=== PATIENT | male | born 1945 | race Caucasian/White ===

== ENCOUNTER → 2024-02-22 | Outpatient (CLI) | payer MEDICARE, BC, SELFPAY ==
[2024-02-22 08:51] LABS: Basophils % (Auto) 0 % (0-2.5); Eosinophils # (Auto) 0.3 Thou/mm3 (0.0-0.5); Eosinophils % (Auto) 6 % (0-10); Hematocrit 39.7 % (41.0-53.0); Hemoglobin 13.1 g/dL (13.5-16.0); Immature Granulocytes % (Auto) 0 % (0-0); Immature Granulocytes Auto 0.02 Thou/mm3 (0.00-0.00); Lymphocytes # (Auto) 2.1 Thou/mm3 (1.0-4.8); Lymphocytes % (Auto) 39 % (10-50); Mean Corpuscular Volume 88 fL (80-100); Monocytes # (Auto) 0.5 Thou/mm3 (0.0-0.8); Monocytes % (Auto) 9 % (0-12); Neutrophils # (Auto) 2.4 Thou/mm3 (1.8-7.7); Neutrophils % (Auto) 45 % (37-80); Nucleated Red Blood Cell % 0 /100 WBC (0); Platelet Count 229 Thou/mm3 (140-440); RDW Standard Deviation 44.1 fL (35.1-43.9); Red Blood Count 4.52 Miln/mm3 (4.50-5.90); White Blood Count 5.4 Thou/mm3 (3.8-10.6)
[2024-02-22 09:27] LABS: Alanine Aminotransferase 43 U/L (10-49); Albumin, Serum 4.2 gm/dL (3.4-4.8); Albumin/Globulin Ratio 1.8 (1.2-2.2); Alkaline Phosphatase 107 U/L (46-116); Anion Gap 10 (7-16); Aspartate Amino Transferase 35 U/L (0-34); BUN/Creatinine Ratio 36 Ratio (12-20); Bilirubin,Total 0.2 mg/dL (0.3-1.2); Blood Urea Nitrogen 51 mg/dL (9-23); Calcium 9.6 mg/dL (8.3-10.6); Calcium (Corrected) 9.6 mg/dL (8.5-10.1); Carbon Dioxide 20.4 mMol/L (20.0-31.0); Chloride 113 mMol/L (98-107); Creatinine (Component) 1.4 mg/dL (0.6-1.3); Globulin 2.4 gm/dL (2.3-3.5); Glucose 159 mg/dL (74-106); Osmolality,Calculated 301 (275-295); Potassium 4.5 mMol/L (3.4-5.1); Sodium 143 mMol/L (136-145); Total Protein 6.6 gm/dL (5.7-8.2); eGFR 52 See Note
== END | disposition home or self-care (01) ==
LOC: COPL 08:09
PROVIDERS: PCP Family Medicine; Referring Provider Physician Assistant; Visit Provider Physician Assistant
DX: R19.7 Diarrhea, unspecified (principal)
CPT/HCPCS: 36415; 80053; 85025

== ENCOUNTER → 2024-02-23 | Outpatient (CLI) | payer MEDICARE, BC, SELFPAY | END | disposition home or self-care (01) | LOC: SLDO 10:49 | PROVIDERS: Referring Provider Physician Assistant; Visit Provider Physician Assistant | DX: R19.7 Diarrhea, unspecified (principal) | CPT/HCPCS: 87015; 87045; 87046; 87899 ==

== ENCOUNTER 2024-05-24 14:42 | Inpatient (IN) | payer MEDICARE, BC, SELFPAY ==
[2024-05-24 14:42] VITALS: BMI 18.4
[2024-05-24 15:42] VITALS: BP 175/96; PULSE 99; RESP 18; TEMP 37; O2SAT 94
--- NOTE | 2024-05-24 15:47 | XR_ITS ---
Examination: CT brain head without contrast. 2-D sagittal coronal reconstructions Date and time of exam:May 24, 2024 1616 hours Comparison October 17, 2022 INDICATIONS: Patient fell today with injury to the head, head pain CTDI: vol (mGy):49 DLP: (mGycm):1021 Technique: Multiple CT axial sections of the brain have been obtained, 5 mm slice thickness. Contrast has not been administered. 2-D sagittal, coronal reconstructions have been obtained Low dose protocols were performed. One or more of the following dose reduction techniques were used; automated exposure control, adjustment of the mA and/or KV according to patient size, use of iterative reconstruction technique. Findings: No significant ventricular enlargement. Intra-axial or extra-axial hemorrhage density is not seen. No mass effect or midline shift Basal cisterns are not remarkable. Fourth ventricle is midline. Cranial vault intact. Impression: Negative for acute hemorrhage, mass effect or midline shift
--- NOTE | 2024-05-24 15:47 | XR_ITS ---
Examination: Left femur 2 views TECHNIQUE: AP lateral left femur 2 views Exam date and time: May 24, 2024 at 1536 hours INDICATIONS: Patient fell today with injury of the femur, femur pain. FINDINGS: Acute fracture left femoral neck, 18 mm offset at the fracture site Shaft of the femur intact IMPRESSION: Acute fracture femoral neck
--- NOTE | 2024-05-24 15:47 | XR_ITS ---
Examination:Left hip AP, lateral, AP pelvis 3 views Technique: Hip AP lateral, AP pelvis, 3 views Exam date and time:May 24, 2024 at 1522 hours INDICATIONS: Patient fell today with injury to the hip, hip pain FINDINGS: Acute displaced fracture left femoral neck Right hip bones of the pelvis is intact IMPRESSION: Acute displaced fracture left femoral neck
--- NOTE | 2024-05-24 15:48 | PD.EDFALL ---
ED Fall Injury RME/HPI General Chief Complaint: Fall Stated Complaint: LEFT LEG PAIN Time Seen by Provider: 05/24/24 14:45 Arrival date/time: 05/24/24 14:42 RME / HPI RME / HPI Narrative: 79-year-old male patient with significant history of heart transplant, 14 years ago, came in for evaluation regarding left hip pain. Patient sustained a fall while working on his tractor, landing on the cement complaining of headache, and pain to the left hip, patient is unable to bear weight due to pain. Denies any other complaints no medications taken prior travel. Patient is taking blood thinner. Patient is taking 81 mg of aspirin daily and Plavix also. Patient is taking his immunosuppressive medications with good compliance. Related Data Home Medications ?Medication ?Instructions ?Recorded ?Confirmed ascorbic acid (vitamin C) 500 mg 500 mg PO BID 07/25/20 05/24/24 tablet (Vitamin C) aspirin 81 mg tablet,delayed 81 mg PO QDAY 07/25/20 05/24/24 release atorvastatin 40 mg tablet 40 mg PO QDAY 07/25/20 05/24/24 Held on 05/24/24. Instructions: NOT TAKING calcium carb-ergocalciferol (vit 1 tab PO DAILY 07/25/20 05/24/24 D2) 600 mg calcium-200 unit tablet everolimus (immunosuppressive) 0.5 1.5 mg PO BID 07/25/20 05/24/24 mg tablet hydralazine 25 mg tablet 25 mg PO TID 07/25/20 05/24/24 lisinopril 5 mg tablet 5 mg PO QDAY 07/25/20 05/24/24 nateglinide 120 mg tablet 120 mg PO BID 07/25/20 05/24/24 omeprazole 40 mg capsule,delayed 40 mg PO QDAY 07/25/20 05/24/24 release oxybutynin chloride 5 mg tablet 5 mg PO BID 07/25/20 05/24/24 sertraline 100 mg tablet 100 mg PO BID 07/25/20 05/24/24 sitagliptin phosphate 50 mg tablet 50 mg PO QDAY 07/25/20 05/24/24 (Januvia) Held on 05/24/24. Instructions: DISCONTINUED tacrolimus 1 mg capsule, 2 mg PO Q12HR 07/25/20 05/24/24 immediate-release vitamin E 268 mg (400 unit) capsule 400 unit PO BID 07/25/20 05/24/24 tamsulosin 0.4 mg capsule (Flomax) 0.4 mg PO QDAY 01/20/21 05/24/24 Held on 05/24/24. Instructions: DISCONTINUED clopidogrel 75 mg tablet (Plavix) 75 mg PO QDAY 07/06/21 05/24/24 Held on 05/24/24. Instructions: DISONTINUED mirtazapine 15 mg tablet (Remeron) 15 mg PO QDAY 07/06/21 05/24/24 phenytoin sodium extended 100 mg 100 mg PO QDAY 07/06/21 05/24/24 capsule (Dilantin Extended) semaglutide 0.25 mg or 0.5 mg (2 mg subcut 05/24/24 mg/3 mL) subcutaneous pen injector (Ozempic) Allergies Allergy/AdvReac Type Severity Reaction Status Date / Time No Known Allergies Allergy Verified 05/24/24 14:45 Review of Systems Review of Systems Narrative Review of Systems: Review of system reviewed and within normal limits except mentioned in HPI ED Exam Narrative Physical exam: VITAL SIGNS: Reviewed. GENERAL APPEARANCE: Alert and interactive, follows commands, no acute distress, HEAD AND FACE: Non-traumatic. ENT: PERRL, pink conjunctivitis, eyelid no trauma, Mucous membrane moist. NECK: Supple, nontender, no nuchal rigidity. CHEST: No tenderness, no crepitus, no paradoxical movement, no retractions. LUNGS: Clear, well ventilated, symmetric, no rales, no wheezing, no ronchi, no stridor, good breath sounds bilaterally. HEART: Regular rate, regular rhythm, no murmur, no gallops. ABDOMEN: Soft, positive bowel sounds, nondistended, no guarding, nontender, no rebound, no masses, RECTAL: Deferred. GENITAL: Deferred. NEUROLOGICAL: Gross motor function intact sensory function intact, Appropriate for age. MUSCULOSKELETAL: low back nontender, full range of motion. EXTREMITIES: Left hip tenderness, no shortening, limitation range of motion. SKIN: Color pink, dry, no rash, no lacerations, no abrasions, no contusions. LYMPHATICS: Deferred. Course Quality Measures none Orders Category Date Time Status COVID-19 Screening Questionnaire NOW Care 05/24/24 17:54 Active Decision to Admit Care 05/24/24 17:54 Active EKG (ED ONLY) *Do not use* NOW Care 05/24/24 17:11 Completed Insert IV NOW Care 05/24/24 17:42 Active Consult to Cardiology Stat Cons 05/24/24 17:12 Ordered Consult to Orthopedic Stat Cons 05/24/24 17:[address] head/brain wo con Stat Exams 05/24/24 15:47 Completed EKG (ED Only) Stat Exams 05/24/24 17:11 Ordered XR chest 1V Stat Exams 05/24/24 17:11 Completed XR femur LT 2V Stat Exams 05/24/24 15:47 Completed XR hip LT w pelvis 2-3V Stat Exams 05/24/24 15:47 Completed B-Type Natriuretic Peptide Stat Lab 05/24/24 17:19 Received CBC Stat Lab 05/24/24 17:19 Completed Comprehensive Metabolic Panel Stat Lab 05/24/24 17:19 Received Partial Thromboplastin Time Stat Lab 05/24/24 17:19 Received Prothrombin Time with INR Stat Lab 05/24/24 17:19 Received Troponin I Stat Lab 05/24/24 17:19 Received Urinalysis, C/S if Indicated Stat Lab 05/24/24 17:11 Ordered HYDROcodone*/APAP 5/325 [[place] 5/325] Med 05/24/24 15:47 Discontinued 1 tab PO X1 ONE Vital Signs Vital signs: Vital Signs Temperature 98.6 F 05/24/24 15:42 Pulse Rate 99 05/24/24 15:42 Respiratory Rate 18 05/24/24 15:42 Blood Pressure 175/96 H 05/24/24 15:42 Pulse Oximetry (%) 94 L 05/24/24 15:42 Oxygen Delivery Method Room Air 05/24/24 15:42 Fall MDM Narrative MDM Narrative:: 79-year-old male patient with significant history of heart transplant, 14 years ago, came in for evaluation regarding left hip pain. Patient sustained a fall while working on his tractor, landing on the cement complaining of headache, and pain to the left hip, patient is unable to bear weight due to pain. Denies any other complaints no medications taken prior travel. Patient is taking blood thinner. X-ray of the hip showed femoral neck fracture. Patient's workup all came back unremarkable. I consulted Dr. Taylor, soda maker, who will do clearance of the patient. I also consulted Dr. Mack orthopedic surgeon who will do surgery tomorrow. Patient will be admitted under hospitalist. Patient data External records reviewed:: None Clinical information provided by:: patient and family Social determinants that could affect healthcare access:: none Patient has the following chronic illnesses:: History of diabetes hypertension and heart transplant How is presenting disease/condition affected by chronic disease/condition?: uneffected by Evaluation data The following diagnostics were reviewed and interpreted by me:: lab results and radiology exam(s) Lab and/or radiology exams considered but not ordered:: None Interpretation Summary: See results in [facility] Medications / Prescriptions Medications or Prescriptions considered but not ordered:: None Medication administrations:: Medication Administration History Discontinued Medications Hydrocodone Bitart/Acetaminophen (Hydrocodone/Apap 5/325 Tablet) 1 tab PO X1 ONE Stop: 05/24/24 15:48 Last Admin: 05/24/24 17:13 Dose: 1 tab Documented By: ZAHEER Daly Consultations Consultation(s) initiated? (list below): No Diagnosis Fall Differential Diagnosis: other (Hip fracture, status post fall, pelvic fracture, history of heart transplant) Most likely diagnosis given after review of the tests above:: Femoral neck fracture status post fall, history of heart transplant Admission Indicated Admission indicated?: indicated Explain why admission is indicated or not indicated:: Patient is to be admitted for further management Admission Request Was there a request for admission?: Yes Admission Attestation Admission request attestation: Discussed case with [Dr Lloyd] from Hospitalist service regarding admission. Discussed patients ED course, exam findings, labs, and radiology results. The Hospitalist [agrees] to accept the patient for admission. Disposition Plan Disposition Plan: Admit Discharge Plan Plan Patient Disposition: Admit Acute Care w/in Hospital Disposition Comment: Stable Prescriptions/Referrals Prescriptions/Med Rec: No Action tamsulosin [Flomax] 0.4 mg capsule 0.4 mg PO QDAY phenytoin sodium extended [Dilantin Extended] 100 mg Capsule 100 mg PO QDAY clopidogrel [Plavix] 75 mg Tablet 75 mg PO QDAY mirtazapine [Remeron] 15 mg Tablet 15 mg PO QDAY atorvastatin 40 mg Tablet 40 mg PO QDAY omeprazole 40 mg Capsule,Delayed Release(Dr/Ec) 40 mg PO QDAY aspirin 81 mg Tablet,Delayed Release (Dr/Ec) 81 mg PO QDAY ascorbic acid (vitamin C) [Vitamin C] 500 mg Tablet 500 mg PO BID calcium carbonate-vitamin D2 600 mg calcium- 200 unit Tablet 1 tab PO DAILY vitamin E 400 unit Capsule 400 unit PO BID Januvia 50 mg Tablet 50 mg PO QDAY lisinopril 5 mg Tablet 5 mg PO QDAY tacrolimus 1 mg Capsule 2 mg PO Q12HR nateglinide 120 mg Tablet 120 mg PO BID sertraline 100 mg Tablet 100 mg PO BID hydralazine 25 mg Tablet 25 mg PO TID oxybutynin chloride 5 mg Tablet 5 mg PO BID everolimus (immunosuppressive) 0.5 mg Tablet 1.5 mg PO BID Ozempic 0.25 mg or 0.5 mg (2 mg/3 mL) pen injector SUBCUT Referrals: No Primary/Family,Physician [Primary Care Provider] - In 1 week Problem List Clinical Impression: Femoral neck fracture, History of heart transplant Patient/Caregiver Discharge Instructions Discharge Activity: activity as tolerated Print Language: Bahraini Stand Alone Forms: [facility] Award Info., Patient Portal Info Letter
--- NOTE | 2024-05-24 17:11 | EKG_ITS ---
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: : [id number] Requested By: Maira Amor Order Number: [id number] Reading MD: Maira Amor Measurements Intervals [place] Rate: 87 P: 35 OK: 183 QRS: -85 QRSD: 142 T: 70 QT: 399 QTc: 480 Interpretive Statements SINUS RHYTHM RIGHT BUNDLE BRANCH BLOCK [120+ ms QRS DURATION, UPRIGHT V1, 40+ ms S IN I/aVL/V4/V5/V6] LEFT ANTERIOR FASCICULAR BLOCK [QRS AXIS <= -45, QR IN I, RS IN II] ANTEROSEPTAL MYOCARDIAL INFARCTION , OF INDETERMINATE AGE [40+ ms Q WAVE IN V1-V4] MODERATE T-WAVE ABNORMALITY, CONSIDER LATERAL ISCHEMIA [-0.1+ mV T-WAVE IN I/aVL/V5/V6] Compared to ECG 10/17/2022 07:29:39 Left anterior fascicular block now present Sinus tachycardia no longer present Left-axis deviation no longer present Myocardial infarct finding still present T-wave abnormality still present Possible ischemia still present /store/S0/[id number]/ecg/[id number].pdf
--- NOTE | 2024-05-24 17:11 | XR_ITS ---
Examination: AP chest single view TECHNIQUE: AP portable upright chest single view Exam date May 242024, 1646 hours Comparison October 21, 2022 INDICATIONS: Onset chest pain today. FINDINGS: Normal heart size Median sternotomy wires. No pneumonia or pulmonary edema. Moderate osteopenia. IMPRESSION: No active disease
[2024-05-24] MEDS: HYDROcodone/APAP 5/325 TABLET 1 TAB PO (17:13)
[2024-05-24 17:26] VITALS: BP 179/98; PULSE 90; RESP 18; TEMP 36.8; O2SAT 100
[2024-05-24 17:51] LABS: Basophils % (Auto) 0 % (0-2.5); Eosinophils % (Auto) 0 % (0-10); Hematocrit 41.7 % (41.0-53.0); Hemoglobin 13.9 g/dL (13.5-16.0); Immature Granulocytes % (Auto) 0 % (0-0); Immature Granulocytes Auto 0.03 Thou/mm3 (0.00-0.00); Lymphocytes # (Auto) 1.3 Thou/mm3 (1.0-4.8); Lymphocytes % (Auto) 14 % (10-50); Mean Corpuscular HGB Conc 33.3 g/dl (31.0-37.0); Mean Corpuscular Hemoglobin 28.9 pg (25.0-35.0); Mean Corpuscular Volume 87 fL (80-100); Monocytes # (Auto) 0.9 Thou/mm3 (0.0-0.8); Monocytes % (Auto) 10 % (0-12); Neutrophils % (Auto) 76 % (37-80); Nucleated Red Blood Cell % 0 /100 WBC (0); Platelet Count 215 Thou/mm3 (140-440); RDW Standard Deviation 40.2 fL (35.1-43.9); Red Blood Count 4.81 Miln/mm3 (4.50-5.90); White Blood Count 9.2 Thou/mm3 (3.8-10.6)
[2024-05-24 18:11] LABS: INR 1.1 (0.9-1.3); Partial Thromboplastin Time 29.2 Seconds (22.0-36.0); Prothrombin Time 12.2 Seconds (9.0-12.2)
[2024-05-24 18:16] LABS: Alanine Aminotransferase 36 U/L (10-49); Albumin, Serum 4.4 gm/dL (3.4-4.8); Albumin/Globulin Ratio 1.5 (1.2-2.2); Alkaline Phosphatase 118 U/L (46-116); Anion Gap 11 (7-16); Aspartate Amino Transferase 38 U/L (0-34); BUN/Creatinine Ratio 29 Ratio (12-20); Bilirubin,Total 0.4 mg/dL (0.3-1.2); Blood Urea Nitrogen 38 mg/dL (9-23); Calcium 9.5 mg/dL (8.3-10.6); Calcium (Corrected) 9.5 mg/dL (8.5-10.1); Carbon Dioxide 23.2 mMol/L (20.0-31.0); Chloride 108 mMol/L (98-107); Creatinine (Component) 1.3 mg/dL (0.6-1.3); Estimated Creatinine Clearance 36.5 mL/min (>60); Globulin 2.9 gm/dL (2.3-3.5); Glucose 203 mg/dL (74-106); Osmolality,Calculated 298 (275-295); Potassium 4.2 mMol/L (3.4-5.1); Sodium 142 mMol/L (136-145); Total Protein 7.3 gm/dL (5.7-8.2); Troponin I < 0.020 ng/mL (0.0-0.045); eGFR 56 See Note
[2024-05-24 18:20] LABS: B-Type Natriuretic Peptide 435 pg/mL (0-100)
--- NOTE | 2024-05-24 18:33 | ESCONSULT_ITS ---
<Statement entered by Manjit Taylor MD - 05/27/24 13:49> I personally examined the patient along with PGY 3 Dr. Poole this patient is very well-known to me has a longstanding history of nonischemic cardiomyopathy cardiac transplantation subsequently had stents placed in RCA circumflex artery clinically quite stable followed very closely by me in my office normal left ventricle function no ischemic issues over the last 1 year admitted to the hospital fracture of the hip appears with low risk for surgery he has multiple medications for hypertension transplant medication will be continued for surgery agree with the documentation treatment plan all essential components of the consultation report reviewed by me personally. HPI Data of Consult Primary Care Provider: Physician No Primary/Family Consult Narrative Reason for consult: Preoperative Cardiac Clearance History of present illness: Patient is a 79-year-old male with history of nonischemic cardiomyopathy, chronic systolic heart failure with preserved EF 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 Imaging in the ED revealed acute displaced fracture to the femoral neck, lab work generally unremarkable however did reveal hyperglycemia of 203 and BNP of 435, creatinine levels 1.3 within patient's baseline range. Patient states he had gotten out of his tractor this afternoon, was on concrete ground when he had a fall. He does endorse pain on his left hip, scale to 3/10 at time of examination, but denies any numbness/tingling, weakness, chest pains, or headaches, remainder of ROS also unremarkable. Orthopedic team was consulted by ED, surgical repair is planned. Cardiology team consulted for preoperative cardiac clearance. 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 cc:: cc: Review of Systems Review of Systems Narrative Review of Systems: GENERAL: Denies fevers/chills or diaphoresis. HEENT: Denies headache or visual/hearing changes. NEURO: Denies unusual weakness or difficulty speaking. CARDIO: Denies chest pain or palpitations. PULM: Denies SOB, coughing, or wheezing. GI: Denies abdominal pain, nausea, vomiting, diarrhea URO: Denies burning/itching/pain/urinary changes. 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 Exam Vital Signs Temp Pulse Resp BP Pulse Ox O2 Del Method 98.2 F 90 18 179/98 H 100 Room Air 05/24/24 17:26 05/24/24 17:26 05/24/24 17:26 05/24/24 17:26 05/24/24 17:26 05/24/24 17:26 Narrative Exam General: AOx3, cooperative, in no acute distress HEENT: Atraumatic/normocephalic, LSIA Heart: RRR, S1 and S2 without clicks or murmurs Lungs: Clear on auscultation bilaterally, no difficulty breathing Abdomen: Soft, nontender. Bowel sounds present on all quadrants Skin: No cyanosis or edema noted. 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 Neuro: Patient refusing to move left leg due to pain, other mcdonald no focal neurological deficits noted on apperance Results Labs 05/24/24 17:19 05/24/24 17:19 Labs: Short CBC 05/24/24 Range/Units 17:19 WBC 9.2 (3.8-10.6) Thou/mm3 Hgb 13.9 (13.5-16.0) g/dL Hct 41.7 (41.0-53.0) % Plt Count 215 (140-440) Thou/mm3 BMP 05/24/24 17:19 Sodium 142 Potassium 4.2 Chloride 108 H Carbon Dioxide 23.2 BUN 38 H Creatinine 1.3 Glucose 203 H Calcium 9.5 Cardiac Enzymes 05/24/24 Range/Units 17:19 Troponin I < 0.020 (0.0-0.045) ng/mL Liver Function 03/20/25 Range/Units 17:19 Total Bilirubin 0.4 (0.3-1.2) mg/dL AST 38 H (0-34) U/L ALT 36 (10-49) U/L Alkaline Phosphatase 118 H (46-116) U/L Albumin 4.4 (3.4-4.8) gm/dL Quality Measures Quality Measures none Advance care planning discussed with:: patient Medications Home Medications and Allergies Home Medications ?Medication ?Instructions ?Recorded ?Confirmed ?Type ascorbic acid (vitamin C) 500 mg 500 mg PO BID 1 05/24/24 History tablet (Vitamin C) aspirin 81 mg tablet,delayed 81 mg PO QDAY 07/25/20 History release atorvastatin 40 mg tablet 40 mg PO QDAY 07/25/2005/24 History Held on 05/24/24. Instructions: NOT TAKING calcium carb-ergocalciferol (vit 1 tab PO DAILY 05/24/24 History D2) 600 mg calcium-200 unit tablet everolimus (immunosuppressive) 0.5 1.5 mg PO BID 07/2505/24/24 History mg tablet hydralazine 25 mg tablet 25 mg PO TID 07/25/20 History lisinopril 5 mg tablet 5 mg PO QDAY 07/25/20 History nateglinide 120 mg tablet 120 mg PO BID 07/25/2005/24 History omeprazole 40 mg capsule,delayed 40 mg PO QDAY 1 05/24/24 History release oxybutynin chloride 5 mg tablet 5 mg PO BID 07/25/20 0 05/24/24 History sertraline 100 mg tablet 100 mg PO BID 07/25/2005/24 History sitagliptin phosphate 50 mg tablet 50 mg PO QDAY 07/2505/24/24 History (Januvia) Held on 05/24/24. Instructions: DISCONTINUED tacrolimus 1 mg capsule, 2 mg PO Q12HR 07/25/2005/24 History immediate-release vitamin E 268 mg (400 unit) capsule 400 unit PO BID 05/24/24 History tamsulosin 0.4 mg capsule (Flomax) 0.4 mg PO QDAY 01/0505/24/24 History Held on 05/24/24. Instructions: DISCONTINUED clopidogrel 75 mg tablet (Plavix) 75 mg PO QDAY 05/24/24 History Held on 05/24/24. Instructions: DISONTINUED mirtazapine 15 mg tablet (Remeron) 15 mg PO QDAY 07/0605/24/24 History phenytoin sodium extended 100 mg 100 mg PO QDAY 05/24/24 History capsule (Dilantin Extended) semaglutide 0.25 mg or 0.5 mg (2 mg subcut 05/24/24 H istory mg/3 mL) subcutaneous pen injector (Ozempic) Allergies Allergy/AdvReac Type Severity Reaction Status Date / Time No Known Allergies Allergy Verified 05/24/24 14:45 Visit Medications Discontinued Medications Hydrocodone Bitart/Acetaminophen (Hydrocodone/Apap 5/325 Tablet) 1 tab PO X1 ONE Stop: 05/24/24 15:48 Last Admin: 05/24/24 17:13 Dose: 1 tab Assessment & Plan Plan Patient is a 79-year-old male with history of nonischemic cardiomyopathy, chronic systolic heart failure with preserved EF 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 Imaging in the ED revealed acute displaced fracture to the femoral neck, lab work generally unremarkable however did reveal hyperglycemia of 203 and BNP of 435, creatinine levels 1.3 within patient's baseline range. Patient states he had gotten out of his tractor this afternoon, was on concrete ground when he had a fall. He does endorse pain on his left hip, scale to 3/10 at time of examination, but denies any numbness/tingling, weakness, chest pains, or headaches, remainder of ROS also unremarkable. Orthopedic team was consulted by ED, surgical repair is planned. Cardiology team consulted for preoperative cardiac clearance. #Acute displaced fracture left femoral neck #Pre-operative cardiac clearance Displaced fracture left femoral neck per L femur and hip x-ray findings in ED Orthopedic team consulted, surgical intervention planned Last echo in Oct 2022: EF 60-65%, normal LV/RV size and function Cath in July 2021: Widely patent stent involving right coronary artery. De k[place]idy 90% stenosis discrete lesion around distal LAD, successful PCI stent placed Creatinine 1.3 on day of presentation Revised Cardiac risk index (RCRI) for pre-operative risk: 1 point (6% risk of major cardiac events) Plan: - Cleared for orthopedic surgery from cardiology standpoint. Low-risk patient, last echo was normal, stents placed >2 years ago #History of hypertension Blood pressure 179/98 at time of examination in ED Plan: - Advise resuming home medications: amlodipine 10mg qday and lisiniopril 20mg qday #History of T2DM - Management per primary team Patient case discussed with attending physician Dr. Brandon Poole, DO PGY-3
[2024-05-24 19:34] VITALS: BP 154/84; PULSE 92; RESP 19; TEMP 36.7; O2SAT 96
[2024-05-24 20:21] VITALS: BP 140/88; PULSE 88; RESP 22; O2SAT 95
[2024-05-24] MEDS: RINGERS LACTATED 1000 ML 1,000 ML 60 ML IV (20:24)
--- NOTE | 2024-05-24 20:47 | PD.RESHP ---
Documentation for date of: 05/24/24 [facility] History of Present Illness Chief complaint: Left hip pain status post ground-level fall History of present illness: Mr. 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 Patient states that he was on his tractor yesterday and while getting off onto the cement, patient lost balance, and spun around and turned and fell on his left side. Patient initially thought he had a bruise, and decided to see how the pain improves. However, patient's pain continued to worsen and decided to come to the ED. Patient denies any loss of consciousness, chest pain, generalized weakness other than the left leg due to pain, loss of sensation, shortness of breath, dizziness, blurry vision, dysuria, or abdominal pain. Patient also denies any bleeding or lacerations on his skin. ED course: Patient presented with a blood pressure of 175/96, heart rate of 99, afebrile and saturating 94% on room air. Labs significant for decreased GFR 56, elevated glucose of 203, elevated BNP of 435. Femur x-ray, hip pelvis x-ray both confirm a acute displaced fracture of left femoral neck. Chest x-ray was ordered and showed no active disease or pulmonary edema. Patient will be admitted to [facility] for further management of acute left hip fracture. Review of Systems Review of Systems Systems Reviewed: All systems reviewed, normal except as documented Past Medical History Past Medical History Comments PMH COMMENT: Past medical history: As mentioned above Past surgical history: As mentioned above including heart transplant 2013, 2 stents around 20 17-20 18, right hand distal digit second and third digit amputations Family history: Positive for heart disease in dad otherwise noncontributory Social history: Quit smoking about 40 years ago. Denies any alcohol or drug use. Allergies: NKDA Meds: Per external chart review, patient takes atorvastatin 40 mg, everolimus 1.5 mg p.o. twice daily, hydralazine 25 mg p.o. 3 times daily, lisinopril 20 mg p.o. daily, amlodipine 2.5 mg daily, ezetimibe 10 mg daily rosuvastatin 20 mg at bedtime, mirtazapine 15 mg daily, Nateglinide 120mg PO BID prior to meals, omeprazole 40 mg daily, oxybutynin 5 mg p.o. twice daily, phenytoin 100 mg p.o. daily, sertraline 100 mg p.o. twice daily, Januvia 50 mg daily, tacrolimus 2 mg p.o. every 12 hours, vitamin E 400 units p.o. twice daily Exam Vital Signs Temp Pulse Resp BP Pulse Ox O2 Del Method 98.1 F 88 22 H 140/88 H 95 Room Air 05/24/24 19:34 05/24/24 20:21 05/24/24 20:21 05/24/24 20:21 05/24/24 20:21 05/24/24 20:21 Narrative Exam General Appearance: Pt is an elderly male, thin, fragile in mild acute distress laying in bed. HEENT: NC/AT, no scleral icterus, no conjunctival pallor, MMM Lungs: CTAB, no wheezes or crackles appreciated CVS: RRR, S1/S2 heard, no murmurs or rubs appreciated ABD: Soft, non-tender, non-distended, BS + in all 4 quadrants EXT: Right second and third digit amputations with well-healed scars no signs of erythema, bruise or hematoma noted on the left hip, radial pulses 2+ BL, DP pulses 2 + BL SKIN: Skin exam normal without any rashes. Neuro: A&O x 3. No gross neurological deficits. Motor and sensory grossly intact in B/L UL and LL except for left leg. Unable to test range of motion of left leg due to pain. Psych: Appropriate mood and affect Results: Labs 05/25/24 04:24 05/25/24 04:24 Labs: Short CBC 05/24/24 Range/Units 17:19 WBC 9.2 (3.8-10.6) Thou/mm3 Hgb 13.9 (13.5-16.0) g/dL Hct 41.7 (41.0-53.0) % Plt Count 215 (140-440) Thou/mm3 BMP 05/24/24 17:19 Sodium 142 Potassium 4.2 Chloride 108 H Carbon Dioxide 23.2 BUN 38 H Creatinine 1.3 Glucose 203 H Calcium 9.5 Cardiac Enzymes 05/24/24 Range/Units 17:19 Troponin I < 0.020 (0.0-0.045) ng/mL Liver Function 05/24/24 Range/Units 17:19 Total Bilirubin 0.4 (0.3-1.2) mg/dL AST 38 H (0-34) U/L ALT 36 (10-49) U/L Alkaline Phosphatase 118 H (46-116) U/L Albumin 4.4 (3.4-4.8) gm/dL Quality Measures Quality Measures none Advance care planning discussed with:: patient Medications Home Medications and Allergies Home Medications ?Medication ?Instructions ?Recorded ?Confirmed ?Type ascorbic acid (vitamin C) 500 mg 500 mg PO BID 07/25/20 05/24/24 History tablet (Vitamin C) aspirin 81 mg tablet,delayed 81 mg PO QDAY 07/25/20 05/24/24 History release atorvastatin 40 mg tablet 40 mg PO QDAY 07/25/20 05/24/24 History Held on 05/24/24. Instructions: NOT TAKING calcium carb-ergocalciferol (vit 1 tab PO DAILY 07/25/20 05/24/24 History D2) 600 mg calcium-200 unit tablet everolimus (immunosuppressive) 0.5 1.5 mg PO BID 07/25/20 05/24/24 History mg tablet hydralazine 25 mg tablet 25 mg PO TID 07/25/20 05/24/24 History lisinopril 5 mg tablet 5 mg PO QDAY 07/25/20 05/24/24 History nateglinide 120 mg tablet 120 mg PO BID 07/25/20 05/24/24 History omeprazole 40 mg capsule,delayed 40 mg PO QDAY 07/25/20 05/24/24 History release oxybutynin chloride 5 mg tablet 5 mg PO BID 07/25/20 05/24/24 History sertraline 100 mg tablet 100 mg PO BID 07/25/20 05/24/24 History sitagliptin phosphate 50 mg tablet 50 mg PO QDAY 07/25/20 05/24/24 History (Januvia) Held on 05/24/24. Instructions: DISCONTINUED tacrolimus 1 mg capsule, 2 mg PO Q12HR 07/25/20 05/24/24 History immediate-release vitamin E 268 mg (400 unit) capsule 400 unit PO BID 07/25/20 05/24/24 History tamsulosin 0.4 mg capsule (Flomax) 0.4 mg PO QDAY 01/20/21 05/24/24 History Held on 05/24/24. Instructions: DISCONTINUED clopidogrel 75 mg tablet (Plavix) 75 mg PO QDAY 07/06/21 05/24/24 History Held on 05/24/24. Instructions: DISONTINUED mirtazapine 15 mg tablet (Remeron) 15 mg PO QDAY 07/06/21 05/24/24 History phenytoin sodium extended 100 mg 100 mg PO QDAY 07/06/21 05/24/24 History capsule (Dilantin Extended) semaglutide 0.25 mg or 0.5 mg (2 mg subcut 05/24/24 History mg/3 mL) subcutaneous pen injector (ROBAUTOempic) Allergies Allergy/AdvReac Type Severity Reaction Status Date / Time No Known Allergies Allergy Verified 05/24/24 14:45 Visit Medications Acetaminophen (Acetaminophen 325 Mg Tablet) 650 mg PO Q6H PRN PRN Reason: Fever >100.4 or pain 1-3 Stop: 06/23/24 18:35 Dextrose (Dextrose 50%-Water Inj 50 Ml Syringe) 25 ml IV Q15MIN PRN PRN Reason: BG 50-70 responsive npo pt Stop: 06/23/24 18:45 Dextrose (Dextrose 50%-Water Inj 50 Ml Syringe) 50 ml IV Q15MIN PRN PRN Reason: BG <50 OR BG <70 & pt unresponsive Stop: 06/23/24 18:45 Glucagon (Glucagon Inj 1 Mg Vial) 1 mg IM Q15MIN PRN PRN Reason: BG <70, and no IV access Hydromorphone HCl (Hydromorphone Inj 2 Mg/Ml Vial) 0.25 mg IVP Q3H PRN PRN Reason: Severe pain 7-10 Stop: 05/29/24 18:35 Lactated Ringer's (Lactated Ringers) 1,000 mls @ 60 mls/hr IV .[id number] [facility] Stop: 05/25/24 11:24 Last Admin: 05/24/24 20:24 Dose: 60 mls/hr Insulin Human Lispro (Insulin Lispro (Admelog) 1 Unit/0.01 Ml Unit) 0 unit SC [facility]; Protocol Stop: 06/24/24 07:29 Metoclopramide HCl (Metoclopramide Inj 5 Mg/Ml Vial 2 Ml) 10 mg IVP Q6H PRN; Protocol PRN Reason: NAUSEA OR VOMITING Stop: 06/23/24 18:35 Oxycodone/Acetaminophen (Oxycodone/Apap 5/325 Tablet) 1 tab PO Q6HR PRN PRN Reason: moderate pain 4-6 Stop: 05/29/24 18:43 Sennosides (Senna Tablet) 1 tab PO QDAY [facility]A; Protocol Stop: 06/24/24 08:59 Discontinued Medications Hydrocodone Bitart/Acetaminophen (Hydrocodone/Apap 5/325 Tablet) 1 tab PO X1 ONE Stop: 05/24/24 15:48 Last Admin: 05/24/24 17:13 Dose: 1 tab Assessment & Plan Plan Mr. 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 #Acute displaced left femoral neck fracture secondary to #Ground-level fall Patient presented to the ED with left hip pain x 1 day. Patient was on his tractor, and while getting off of a tractor, lost balance and fell on his left side injuring his left hip. Both femur x-ray and hip pelvis x-ray confirm displaced left femoral neck fracture. -Admit to med/tele -Cardiology consulted, and provided cardiac clearance due to patient's history of cardiac transplant and stents for surgery -Orthopedics consulted, and recommended to order type and screen and 2 units of packed RBCs to be used in surgery tomorrow a.m. -N.p.o. after midnight -IVF LR at 60mls/hr -Pain regimen: Mild to Moderate (1-3/10) Acetaminophen 650mg Q6H PO PRN, Mod to Severe (4-6/10) Percocet Q6H PO PRN , Severe (7-10/10) Dilaudid .25mg Q3H IV PRN -Patient will need PT status post surgery -Patient will need DVT prophylaxis status post 24 to 48 hours #Hypertension #History of coronary artery disease status post stent placements #History of cardiac transplant July 2013 Patient takes home vitamin C 500 mg twice daily, everolimus 1.5 mg p.o. twice daily, Nateglinide 120mg BID, and tacrolimus 2 mg p.o. twice daily -Will resume patient's home p.o. meds status post med reconciliation -Continue to monitor vital signs #History of seizure disorder Patient takes home phenytoin 100 mg p.o. daily -Resume home phenytoin #Type 2 diabetes not on chronic insulin therapy Patient's last A1c was 5.9%. Patient on home Januvia and Nateglinide. -Sliding scale insulin -Bedside glucose AC checks -Hypoglycemic protocol in place #Urinary incontinence/overactive bladder Patient takes home oxybutynin, used to take tamsulosin daily -Will resume patient's home oxybutynin Health Maintenance: DVT prophylaxis: SCDs Diet: N.p.o. after midnight Balderas: No Lines: PIV Supplemental O2: As needed CODE STATUS: Full code Disposition: Patient admitted to med/telemetry for further management of acute left hip fracture Patient's plan and care discussed with my attending, Dr. Gabino Reyes MD PGY-2 Attending Provider Attestation/Addendum I have examined the patient, reviewed labs and imaging findings, discussed the case with the resident(s), and reviewed entered orders. I agree with the plan of care as outlined in this note, with these additional summaries/recommendations: Patient seen at bedside. Patient reports he was working on his tractor when he had a ground-level mechanical fall. He denies losing consciousness but does endorse headache and left hip pain. Head CT negative for acute hemorrhage, mass effect or midline shift. X-ray left femur showed acute fracture femoral neck with 18 mm offset at fracture site. Orthopedics was consulted and recommends admission for surgical correction. Patient has a history of heart transplant in 2013 and we will consult cardiology for cardiac clearance. Patient does take aspirin and Plavix which we will hold for now. Resume home antihypertensives as tolerated. Patient updated on the plan and in agreement. Repeat hematology, chemistry, and coagulation panel in AM. Dr. Gabino MD
[2024-05-24 20:50] LABS: Collection Type, Urine Clean Catch; Squamous Epithelial Cell,Urine 0 /hpf (0-5)
[2024-05-24 21:09] LABS: Bilirubin,Urine Negative (Negative); Blood,Urine 1+ (Negative); Clarity,Urine Clear (Clear/Hazy); Color,Urine Lt-Yellow (Lt Yel-Yel); Culture Indicated,Urine Not Indicated; Glucose, Urine Negative (Negative); Ketones,Urine Negative (Negative); Leukocyte Esterase,Urine Negative (Negative); Nitrite,Urine Negative (Negative); Protein,Urine 1+ (Neg - Trace); RBC,Urine 6 /hpf (0-3); Specific Gravity,Urine 1.021 (1.001-1.035); Urobilinogen,Urine Negative mg/dL (0.0-1.0); WBC,Urine < 1 /hpf (0-5)
[2024-05-24 22:14] VITALS: BMI 18.3
[2024-05-25] VITALS (14 sets, daily range): BP systolic 95–164; BP diastolic 61–90; PULSE 76–99; RESP 11–20; TEMP 36.1–37; O2SAT 94–100
[2024-05-25 06:07] LABS: Basophils % (Auto) 0 % (0-2.5); Eosinophils % (Auto) 0 % (0-10); Hematocrit 39.4 % (41.0-53.0); Hemoglobin 13.1 g/dL (13.5-16.0); Immature Granulocytes % (Auto) 0 % (0-0); Immature Granulocytes Auto 0.02 Thou/mm3 (0.00-0.00); Lymphocytes # (Auto) 1.2 Thou/mm3 (1.0-4.8); Lymphocytes % (Auto) 15 % (10-50); Mean Corpuscular HGB Conc 33.2 g/dl (31.0-37.0); Mean Corpuscular Hemoglobin 28.5 pg (25.0-35.0); Mean Corpuscular Volume 86 fL (80-100); Monocytes # (Auto) 0.9 Thou/mm3 (0.0-0.8); Monocytes % (Auto) 11 % (0-12); Neutrophils # (Auto) 5.7 Thou/mm3 (1.8-7.7); Neutrophils % (Auto) 73 % (37-80); Nucleated Red Blood Cell % 0 /100 WBC (0); Platelet Count 198 Thou/mm3 (140-440); RDW Standard Deviation 39.6 fL (35.1-43.9); White Blood Count 7.8 Thou/mm3 (3.8-10.6)
[2024-05-25 06:14] LABS: INR 1.1 (0.9-1.3); Partial Thromboplastin Time 30.5 Seconds (22.0-36.0); Prothrombin Time 11.9 Seconds (9.0-12.2)
[2024-05-25 06:30] LABS: Alanine Aminotransferase 33 U/L (10-49); Albumin, Serum 4.2 gm/dL (3.4-4.8); Albumin/Globulin Ratio 1.7 (1.2-2.2); Alkaline Phosphatase 103 U/L (46-116); Anion Gap 10 (7-16); Aspartate Amino Transferase 32 U/L (0-34); BUN/Creatinine Ratio 31 Ratio (12-20); Bilirubin,Total 0.5 mg/dL (0.3-1.2); Blood Urea Nitrogen 34 mg/dL (9-23); Calcium 9.4 mg/dL (8.3-10.6); Calcium (Corrected) 9.4 mg/dL (8.5-10.1); Carbon Dioxide 23.5 mMol/L (20.0-31.0); Chloride 110 mMol/L (98-107); Creatinine (Component) 1.1 mg/dL (0.6-1.3); Estimated Creatinine Clearance 42.9 mL/min (>60); Globulin 2.5 gm/dL (2.3-3.5); Glucose 158 mg/dL (74-106); Osmolality,Calculated 295 (275-295); Potassium 4.2 mMol/L (3.4-5.1); Sodium 143 mMol/L (136-145); Total Protein 6.7 gm/dL (5.7-8.2); eGFR > 60 See Note
[2024-05-25] MEDS: HYDROmorphone INJ 2 MG/ML VIAL 0.25 MG IVP (07:21)
[2024-05-25] MEDS: INSULIN LISPRO (AdmeLOG) 1 UNIT/0.01 ML UNIT SC ×2 (07:51→17:26)
[2024-05-25] MEDS: SENNA TABLET 1 TAB PO (08:16)
[2024-05-25] MEDS: ASCORBIC ACID 250 MG TABLET 500 MG PO ×2 (08:16→20:50)
[2024-05-25] MEDS: PHENYTOIN 100 MG CAPSR PO (08:16)
[2024-05-25] MEDS: OXYBUTYNIN CHLOR 5 MG TABLET PO ×2 (08:16→20:50)
[2024-05-25] MEDS: SERTRALINE HCL 25 MG TABLET 100 MG PO ×2 (08:17→20:50)
[2024-05-25] MEDS: TACROLIMUS 1 MG CAPSULE (NON-FORMULARY) 2 MG PO ×2 (08:18→20:50)
--- NOTE | 2024-05-25 11:52 | PC.NURSE ---
Patient off floor in surgery
--- NOTE | 2024-05-25 12:35 | PC.SS ---
Vaibhav Lama is a 79-year-old male admitted to [facility] for Acute L Hip FX. SS conducted bedside contact with the patient to complete initial assessment and to discuss discharge planning.? Patient confirmed demographic information. Patient identifies his Reba Dove [phone] as his surrogate decision maker. Patient resides at home with his . Pt states he is able to complete all ADL?s independently, no need for any source of DME. Pts PCP is Dr. Sandy Sarah (last visit about 1 month ago) and pharmacy of choice is [facility]. DC option discussed and pt wishes to return home, but is open to Rehab/Short Term SNF if recommended from PT post SX. Pt may need transport, does not possess coverage, SS will discuss when DC plan is established. No further intervention required at this time, social science manager would be available to address any further concerns. DC Plan: Home vs SNF Contact: Reba Dove [phone] PCP: Tyrel
--- NOTE | 2024-05-25 14:06 | SUR.PHASEI ---
pt received from OR in recovery bay 4. pt obtunded, breathing unlabored on 4l nc. v/s stable. pt dressing to left hip cdi. report received from Vito ACUNA and Dr. Roche.
--- NOTE | 2024-05-25 14:06 | XR_ITS ---
Examination: AP pelvis left hip 2 views TECHNIQUE: AP portable supine pelvis, AP left hip 2 views Exam date and time: May 25, 2024 1517 hours INDICATIONS: Acute femoral neck fracture May 24, 2024, postop hemiarthroplasty today FINDINGS: Left hip hemiarthroplasty. Satisfactory alignment Right hip bones of the pelvis intact IMPRESSION: Left hip hemiarthroplasty with satisfactory alignment
--- NOTE | 2024-05-25 14:07 | PD.SUROPNT ---
Date of Procedure 05/25/24 Pre Op Diagnosis Displaced fracture neck left femur Post Op Diagnosis Same Procedure Use left hip bipolar hemiarthroplasty. Vicky implant. Femur size 9 Neck standard bipolar head size 54 mm Findings Refer dictation Procedure Description Patient was given general endotracheal anesthesia. Once satisfactory anesthesia achieved patient was put on right lateral position with left hip on the top. Patient was nicely secured on the pegboard. Part was thoroughly prepped and draped. Intravenous antibiotics was given at the time of anesthesia A skin incision was made from the tip of greater trochanter extending proximally up likely towards the posterior superior iliac spine. The length of the incision of this part was about 3 to 4 inches. It was extended distally along the lateral axis of the femur for further 2 to 3 inches. Deeper dissection was carried out. Subcu tissue and the fascia was incised in the line of his skin incision. Following that trochanteric bursa was excised. The short external rotators muscle was then exposed. 2 stay sutures were placed pretty close to the femoral attachment. Following that short external rotators muscle was incised. It was carried into the proximal half of the quadratus femoris muscle. Pyriformis was not cut. Sciatic nerve was protected all along Following that the capsule of the joint was incised. The broken neck of the femur was delivered in the wound 1 fingerbreadth proximal to calcar the neck of the femur was cut. Following that had was removed with the help of cortical screw. Sizing was done and then a trial 54 mm head was placed and was sitting very well Decision was made to use size 54 mm bipolar head With the help of cookie cutter the inner aspect of the greater trochanter was chiseled out. Following that with the help of canal finder the canal was fine and then it was reamed as well Starting with size 7 the femur trial stem was placed and about 20 degrees of anteversion. Size 9 fitted very well. Reaming was done and then it was placed in about 20 degrees of anteversion. A standard neck with 54 mm bipolar head was placed and reduced. 1 could fully extend the hip. Beside that I could flex the hip up to 90 degrees including 75 degrees of internal rotation and hip was stable Following that the trial prosthesis was removed. Wound was irrigated with antibiotic solution. The marrow canal was then treated with hydrogen peroxide solution Size 9 stem was placed in 20 degrees of anteversion. A standard neck +54 mm bipolar head was placed and reduced. Integrity was tested and found to be extremely good Lausier. The capsule was closed with the help of 1 Vicryl in an interrupted fashion. The short external rotators muscle was then closed with the help of previously placed suture. The tensor fascia gabbi was closed with 1's strata 4. The subcu tissue was closed with 2 strata 4. The subcu tissues were applied To cleaning the wound with hydrogen peroxide solution a sterile dressing was applied. Patient tolerated procedure well. Estimated blood loss 50 mL Prognosis in this case is fair to good Anesthesia GETA Pathology / specimen None Estimated Blood Loss 50 Surgeon Will Mack MD Surgical Staff Operation Date: 05/25/24 16:15 Case Staff Anesthesiologist: Oj Roche RNarea loss prevention manager: Liyah Zavala
--- NOTE | 2024-05-25 14:15 | PD.RESPRO ---
Documentation for date of: 05/25/24 Subjective Subjective Interval history: No acute overnight events reported. Pt seen and examined at bedside. Patient denies any pain as patient has been on p.o. Ambia and IV Dilaudid. Patient's creatinine function actually improved from 1.4-1.1 on gentle IV fluids. Patient is scheduled for surgery at 1 PM today. Patient denies any complaints. All questions asked and answered. All labs and imaging reviewed. Exam Vital Signs Temp Pulse Resp BP Pulse Ox O2 Del Method 97.6 F 89 17 154/90 H 95 Room Air 05/25/24 08:00 05/25/24 08:00 05/25/24 08:00 05/25/24 08:00 05/25/24 08:00 05/25/24 08:00 Narrative Exam General Appearance: Pt is an elderly male, thin, fragile in mild acute distress laying in bed. HEENT: NC/AT, no scleral icterus, no conjunctival pallor, MMM Lungs: CTAB, no wheezes or crackles appreciated CVS: RRR, S1/S2 heard, no murmurs or rubs appreciated ABD: Soft, non-tender, non-distended, BS + in all 4 quadrants EXT: Right second and third digit amputations with well-healed scars no signs of erythema, bruise or hematoma noted on the left hip, radial pulses 2+ BL, DP pulses 2 + BL SKIN: Skin exam normal without any rashes. Neuro: A&O x 3. No gross neurological deficits. Motor and sensory grossly intact in B/L UL and LL except for left leg. Unable to test range of motion of left leg due to pain. Psych: Appropriate mood and affect Objective Labs 05/26/24 05:10 05/26/24 05:10 Labs: Laboratory Results - last 24 hr 05/24/24 05/24/24 05/24/24 17:19 19:04 20:29 WBC 9.2 RBC 4.81 Hgb 13.9 Hct 41.7 MCV 87 MCH 28.9 MCHC 33.3 RDW Std Deviation 40.2 Plt Count 215 Neut % (Auto) 76 Lymph % (Auto) 14 [place] % (Auto) 10 Eos % (Auto) 0 Baso % (Auto) 0 Neut # (Auto) 7.0 Lymph # (Auto) 1.3 [place] # (Auto) 0.9 H Eos # (Auto) 0.0 Baso # (Auto) 0.0 Immature Gran # (Auto) 0.03 H Absolute Nucleated RBC 0.00 Immature Gran % 0 Nucleated RBC % 0 PT 12.2 INR 1.1 APTT 29.2 Sodium 142 Potassium 4.2 Chloride 108 H Carbon Dioxide 23.2 Anion Gap 11 BUN 38 H Creatinine 1.3 Estim Creat Clear Calc 36.5 L eGFR 56 L BUN/Creatinine Ratio 29 H Glucose 203 H Calculated Osmolality 298 H Calcium 9.5 Corrected Calcium 9.5 Total Bilirubin 0.4 AST 38 H ALT 36 Alkaline Phosphatase 118 H Troponin I < 0.020 B-Natriuretic Peptide 435 H Total Protein 7.3 Albumin 4.4 Globulin 2.9 Albumin/Globulin Ratio 1.5 Ur Collection Type Clean Catch Urine Color Lt-Yellow Urine Clarity Clear Urine pH 6.0 Ur Specific [place] 1.021 Urine Protein 1+ A Urine Glucose (UA) Negative Urine Ketones Negative Urine Blood 1+ A Urine Nitrite Negative Urine Bilirubin Negative Urine Urobilinogen (Auto) Negative Ur Leukocyte Esterase Negative Urine RBC 6 H Urine WBC < 1 Ur Squamous Epith Cells 0 Urine Bacteria None Ur Culture Indicated? Not Indicated Blood Type O Positive Antibody Screen NEGATIVE Crossmatch See Detail Blood Bank Wristband ID Yes 05/25/24 04:24 WBC 7.8 RBC 4.60 Hgb 13.1 L Hct 39.4 L MCV 86 MCH 28.5 MCHC 33.2 RDW Std Deviation 39.6 Plt Count 198 Neut % (Auto) 73 Lymph % (Auto) 15 [place] % (Auto) 11 Eos % (Auto) 0 Baso % (Auto) 0 Neut # (Auto) 5.7 Lymph # (Auto) 1.2 [place] # (Auto) 0.9 H Eos # (Auto) 0.0 Baso # (Auto) 0.0 Immature Gran # (Auto) 0.02 H Absolute Nucleated RBC 0.00 Immature Gran % 0 Nucleated RBC % 0 PT 11.9 INR 1.1 APTT 30.5 Sodium 143 Potassium 4.2 Chloride 110 H Carbon Dioxide 23.5 Anion Gap 10 BUN 34 H Creatinine 1.1 Estim Creat Clear Calc 42.9 L eGFR > 60 BUN/Creatinine Ratio 31 H Glucose 158 H Calculated Osmolality 295 Calcium 9.4 Corrected Calcium 9.4 Total Bilirubin 0.5 AST 32 ALT 33 Alkaline Phosphatase 103 Troponin I B-Natriuretic Peptide Total Protein 6.7 Albumin 4.2 Globulin 2.5 Albumin/Globulin Ratio 1.7 Ur Collection Type Urine Color Urine Clarity Urine pH Ur Specific [place] Urine Protein Urine Glucose (UA) Urine Ketones Urine Blood Urine Nitrite Urine Bilirubin Urine Urobilinogen (Auto) Ur Leukocyte Esterase Urine RBC Urine WBC Ur Squamous Epith Cells Urine Bacteria Ur Culture Indicated? Blood Type Antibody Screen Crossmatch Blood Bank Wristband ID Quality Measures Quality Measures none Advance care planning discussed with:: patient Assessment & Plan Assessment Current Active Medications: Generic Name Dose Route Start Last Admin Trade Name Freq PRN Reason Stop Dose Admin Acetaminophen 650 mg 05/24/24 18:36 Acetaminophen 325 Mg Tablet PO 06/23/24 18:35 Q6H PRN Fever >100.4 or pain 1-3 Ascorbic Acid 500 mg 05/25/24 09:00 05/25/24 08:16 Ascorbic Acid 250 Mg Tablet PO 06/24/24 08:59 500 mg BID MONA Administration Everolimus 0.25 Mg 0 ea 05/25/24 21:00 Tablets PO 06/24/24 20:59 BID MONA Everolimus 0.5 Mg 0 ea 05/25/24 21:00 Tablets PO 06/24/24 20:59 BID MONA Dextrose 25 ml 05/24/24 18:46 Dextrose 50%-Water Inj 50 Ml Syringe IV 06/23/24 18:45 Q15MIN PRN BG 50-70 responsive npo pt Dextrose 50 ml 05/24/24 18:46 Dextrose 50%-Water Inj 50 Ml Syringe IV 06/23/24 18:45 Q15MIN PRN BG <50 OR BG <70 & pt unresponsive Fentanyl Citrate 50 mcg 05/25/24 13:32 Fentanyl Cit Inj 50 Mcg/Ml Amp 2ml IV 05/25/24 15:32 Q5MIN PRN PAIN SCALE 4-10(Mod-Sev Glucagon 1 mg 05/24/24 18:46 Glucagon Inj 1 Mg Vial IM Q15MIN PRN BG <70, and no IV access Hydralazine HCl 5 mg 05/25/24 13:32 Hydralazine Inj 20 Mg/Ml Vial IV 05/25/24 15:32 Q20MIN PRN SEE COMMENTS Hydromorphone HCl 0.25 mg 05/24/24 18:36 05/25/24 07:21 Hydromorphone Inj 2 Mg/Ml Vial IVP 05/29/24 18:35 0.25 mg Q3H PRN Administration Severe pain 7-10 Insulin Human Lispro 0 unit 05/25/24 07:30 05/25/24 11:51 Insulin Lispro (Admelog) 1 Unit/0.01 Ml Unit SC 06/24/24 07:29 Not Given AC [facility] Protocol Meperidine HCl 12.5 mg 05/25/24 13:32 Meperidine Inj 50 Mg/Ml Vial IV 05/25/24 15:32 Q5M PRN SHIVERING Metoclopramide HCl 10 mg 05/24/24 18:36 Metoclopramide Inj 5 Mg/Ml Vial 2 Ml IVP 06/23/24 18:35 Q6H PRN NAUSEA OR VOMITING Protocol Metoprolol Tartrate 1 mg 05/25/24 13:33 Metoprolol Tartrate Inj 1 Mg/Ml Amp 5 Ml IVP 05/25/24 15:32 Q5MIN PRN TACHYCARDIA Midazolam HCl 1 mg 05/25/24 13:32 Midazolam Inj 1 Mg/Ml Vial 2 Ml IV 05/25/24 15:32 Q5MIN PRN ANXIETY Home Medication- 120 mg 05/25/24 09:00 05/25/24 11:51 Please Speak With PO 06/24/24 08:59 Not Given Patient Caregiver To BID MONA Have Rx Brought To [facility] Ondansetron HCl 4 mg 05/25/24 13:32 Ondansetron Inj 2 Mg/Ml Inj 2 Ml IV 05/25/24 15:32 X1 PRN NAUSEA OR VOMITING Oxybutynin Chloride 5 mg 05/25/24 09:00 05/25/24 08:16 Oxybutynin Chlor 5 Mg Tablet PO 06/24/24 08:59 5 mg BID MONA Administration Oxycodone/Acetaminophen 1 tab 05/24/24 18:44 Oxycodone/Apap 5/325 Tablet PO 05/29/24 18:43 Q6HR PRN moderate pain 4-6 Phenytoin 100 mg 05/25/24 09:00 05/25/24 08:16 Phenytoin 100 Mg Capsr PO 06/24/24 08:59 100 mg QDAY MONA Administration Sennosides 1 tab 05/25/24 09:00 05/25/24 08:16 Senna Tablet PO 06/24/24 08:59 1 tab QDAY MONA Administration Protocol Sertraline HCl 100 mg 05/25/24 09:00 05/25/24 08:17 Sertraline Hcl 25 Mg Tablet PO 06/24/24 08:59 100 mg BID MONA Administration Tacrolimus 2 mg 05/25/24 09:00 05/25/24 08:18 Tacrolimus 1 Mg Capsule (Non-Formulary) PO 06/24/24 08:59 2 mg Q12HR MONA Administration Plan Mr. 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 #Acute displaced left femoral neck fracture secondary to #Ground-level fall Patient presented to the ED with left hip pain x 1 day. Patient was on his tractor, and while getting off of a tractor, lost balance and fell on his left side injuring his left hip. Both femur x-ray and hip pelvis x-ray confirm displaced left femoral neck fracture. -Cardiology consulted, and provided cardiac clearance due to patient's history of cardiac transplant and stents for surgery -Orthopedics consulted, and recommended to order type and screen and 2 units of packed RBCs to be used in surgery today at 1PM today -IVF LR at 60mls/hr discontinued -NPO since midnight -Pain regimen: Mild to Moderate (1-3/10) Acetaminophen 650mg Q6H PO PRN, Mod to Severe (4-6/10) Percocet Q6H PO PRN , Severe (7-10/10) Dilaudid .25mg Q3H IV PRN -Patient will need PT status post surgery -Patient will need DVT prophylaxis status post 24 to 48 hours #Hypertension #History of coronary artery disease status post stent placements #History of cardiac transplant July 2013 Patient takes home vitamin C 500 mg twice daily, everolimus 1.5 mg p.o. twice daily, Nateglinide 120mg BID, and tacrolimus 2 mg p.o. twice daily -Will resume patient's home p.o. meds status post med reconciliation -Continue to monitor vital signs -Holding home Plavix and aspirin for now #History of seizure disorder Patient takes home phenytoin 100 mg p.o. daily -Resume home phenytoin #Type 2 diabetes not on chronic insulin therapy Patient's last A1c was 5.9%. Patient on home Januvia and Nateglinide. -Sliding scale insulin -Bedside glucose AC checks -Hypoglycemic protocol in place #Urinary incontinence/overactive bladder Patient takes home oxybutynin, used to take tamsulosin daily -Will resume patient's home oxybutynin Health Maintenance: DVT prophylaxis: SCDs Diet: N.p.o. after midnight [place]: No Lines: PIV Supplemental O2: As needed CODE STATUS: Full code Disposition: Patient admitted to med/telemetry for further management of acute left hip fracture Patient's plan and care discussed with my attending, Dr. Gabino Reyes MD PGY-2 Attending Provider Attestation/Addendum I have examined the patient, reviewed labs and imaging findings, discussed the case with the resident(s), and reviewed entered orders. I agree with the plan of care as outlined in this note, with these additional summaries/recommendations: Patient seen at bedside. No acute overnight events. Patient endorses left hip pain although controlled with current pain regimen. Patient was seen by cardiology and cleared for surgery. Patient will go for surgical correction of acute displaced left femoral neck fracture with 18 mm offset at fracture site. We will follow-up with patient postoperatively. Continue to hold all chemical anticoagulation for now. Continue insulin sliding scale for diabetes mellitus type 2. Repeat hematology and chemistry panel in AM. Dr. Gabino MD
--- NOTE | 2024-05-25 15:07 | SUR.PHASEI ---
pt asleep but responds to voice, breathing unlabored on 2l nc. v/s stable. pt dressing to left hip cdi. report called to [facility]. pt will be transferred to room at this time.
--- NOTE | 2024-05-25 15:16 | PC.SS ---
Rounding: Pending SX with Dr. Grimes
--- NOTE | 2024-05-25 15:19 | PC.NURSE ---
Patient back from Surgery 1510, temp 97.1, 162/89, hr 94, rep 18 02 sats 99% on 1 liter nc. Dressing to left hip is dry and and intact.---DAGMAR
[2024-05-25] MEDS: ceFAZolin/D5W 1 GM IVPB 1 GM/50 ML BAG IV ×2 (15:26→23:32)
--- NOTE | 2024-05-25 15:40 | ESPR_ITS ---
<Statement entered by Manjit Taylor MD - 05/27/24 13:49> The patient admitted hospital fracture of the hip undergoing surgery postprocedure he is doing quite well no complications no hypotension will resume his medications starting tomorrow all his blood pressure medications. Evaluate the patient with PGY 3 Dr. Poole agree with the treatment plan recommendations as documented Documentation for date of: 05/25/24 Subjective Subjective Interval history: Overnight events, lab/imaging results, and notes reviewed. Patient examined bedside following surgery, reports doing well. Cardiology will continue to follow, will start home lisinopril 20mg qday and 5mg amlodipine (reduced from home 10mg) given hypertensive findings. Exam Vital Signs Temp Pulse Resp BP Pulse Ox O2 Del Method O2 Flow Rate 97.9 F 93 16 136/83 H 98 Room Air 2 05/25/24 14:50 05/25/24 14:50 05/25/24 14:50 05/25/24 14:50 05/25/24 14:50 05/25/24 08:00 05/25/24 14:50 Narrative Exam General: AOx3, cooperative, in no acute distress HEENT: Atraumatic/normocephalic, LISA Heart: RRR, S1 and S2 without clicks or murmurs Lungs: Clear on auscultation bilaterally, no difficulty breathing Abdomen: Soft, nontender. Bowel sounds present on all quadrants Skin: No cyanosis or edema noted. 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 Neuro: Patient deferred moving left leg post-procedure, other mcdonald no focal neurological deficits noted on apperance Objective Labs 05/25/24 04:24 05/25/24 04:24 Labs: Laboratory Results - last 24 hr 05/24/24 05/24/24 05/24/24 17:19 19:04 20:29 WBC 9.2 RBC 4.81 Hgb 13.9 Hct 41.7 MCV 87 MCH 28.9 MCHC 33.3 RDW Std Deviation 40.2 Plt Count 215 Neut % (Auto) 76 Lymph % (Auto) 14 [place] % (Auto) 10 Eos % (Auto) 0 Baso % (Auto) 0 Neut # (Auto) 7.0 Lymph # (Auto) 1.3 [place] # (Auto) 0.9 H Eos # (Auto) 0.0 Baso # (Auto) 0.0 Immature Gran # (Auto) 0.03 H Absolute Nucleated RBC 0.00 Immature Gran % 0 Nucleated RBC % 0 PT 12.2 INR 1.1 APTT 29.2 Sodium 142 Potassium 4.2 Chloride 108 H Carbon Dioxide 23.2 Anion Gap 11 BUN 38 H Creatinine 1.3 Estim Creat Clear Calc 36.5 L eGFR 56 L BUN/Creatinine Ratio 29 H Glucose 203 H Calculated Osmolality 298 H Calcium 9.5 Corrected Calcium 9.5 Total Bilirubin 0.4 AST 38 H ALT 36 Alkaline Phosphatase 118 H Troponin I < 0.020 B-Natriuretic Peptide 435 H Total Protein 7.3 Albumin 4.4 Globulin 2.9 Albumin/Globulin Ratio 1.5 Ur Collection Type Clean Catch Urine Color Lt-Yellow Urine Clarity Clear Urine pH 6.0 Ur Specific [place] 1.021 Urine Protein 1+ A Urine Glucose (UA) Negative Urine Ketones Negative Urine Blood 1+ A Urine Nitrite Negative Urine Bilirubin Negative Urine Urobilinogen (Auto) Negative Ur Leukocyte Esterase Negative Urine RBC 6 H Urine WBC < 1 Ur Squamous Epith Cells 0 Urine Bacteria None Ur Culture Indicated? Not Indicated Blood Type O Positive Antibody Screen NEGATIVE Crossmatch See Detail Blood Bank Wristband ID Yes 05/25/24 04:24 WBC 7.8 RBC 4.60 Hgb 13.1 L Hct 39.4 L MCV 86 MCH 28.5 MCHC 33.2 RDW Std Deviation 39.6 Plt Count 198 Neut % (Auto) 73 Lymph % (Auto) 15 [place] % (Auto) 11 Eos % (Auto) 0 Baso % (Auto) 0 Neut # (Auto) 5.7 Lymph # (Auto) 1.2 [place] # (Auto) 0.9 H Eos # (Auto) 0.0 Baso # (Auto) 0.0 Immature Gran # (Auto) 0.02 H Absolute Nucleated RBC 0.00 Immature Gran % 0 Nucleated RBC % 0 PT 11.9 INR 1.1 APTT 30.5 Sodium 143 Potassium 4.2 Chloride 110 H Carbon Dioxide 23.5 Anion Gap 10 BUN 34 H Creatinine 1.1 Estim Creat Clear Calc 42.9 L eGFR > 60 BUN/Creatinine Ratio 31 H Glucose 158 H Calculated Osmolality 295 Calcium 9.4 Corrected Calcium 9.4 Total Bilirubin 0.5 AST 32 ALT 33 Alkaline Phosphatase 103 Troponin I B-Natriuretic Peptide Total Protein 6.7 Albumin 4.2 Globulin 2.5 Albumin/Globulin Ratio 1.7 Ur Collection Type Urine Color Urine Clarity Urine pH Ur Specific [place] Urine Protein Urine Glucose (UA) Urine Ketones Urine Blood Urine Nitrite Urine Bilirubin Urine Urobilinogen (Auto) Ur Leukocyte Esterase Urine RBC Urine WBC Ur Squamous Epith Cells Urine Bacteria Ur Culture Indicated? Blood Type Antibody Screen Crossmatch Blood Bank Wristband ID Quality Measures Quality Measures none Advance care planning discussed with:: patient Assessment & Plan Assessment Current Active Medications: Generic Name Dose Route Start Last Admin Trade Name Freq PRN Reason Stop Dose Admin Acetaminophen 650 mg 05/24/24 18:36 Acetaminophen 325 Mg Tablet PO 06/23/24 18:35 Q6H PRN Fever >100.4 or pain 1-3 Ascorbic Acid 500 mg 05/25/24 09:00 05/25/24 08:16 Ascorbic Acid 250 Mg Tablet PO 06/24/24 08:59 500 mg BID MONA Administration Everolimus 0.25 Mg 0 ea 05/25/24 21:00 Tablets PO 06/24/24 20:59 BID MONA Everolimus 0.5 Mg 0 ea 05/25/24 21:00 Tablets PO 06/24/24 20:59 BID MONA Nateglinide 120 Mg 0 ea 05/25/24 17:00 Tablet PO 06/24/24 16:59 AC MONA Dextrose 25 ml 05/24/24 18:46 Dextrose 50%-Water Inj 50 Ml Syringe IV 06/23/24 18:45 Q15MIN PRN BG 50-70 responsive npo pt Dextrose 50 ml 05/24/24 18:46 Dextrose 50%-Water Inj 50 Ml Syringe IV 06/23/24 18:45 Q15MIN PRN BG <50 OR BG <70 & pt unresponsive Glucagon 1 mg 05/24/24 18:46 Glucagon Inj 1 Mg Vial IM Q15MIN PRN BG <70, and no IV access Hydromorphone HCl 0.25 mg 05/24/24 18:36 05/25/24 07:21 Hydromorphone Inj 2 Mg/Ml Vial IVP 05/29/24 18:35 0.25 mg Q3H PRN Administration Severe pain 7-10 Cefazolin Sodium/Dextrose 1 gm in 50 mls @ 50 mls/hr 05/25/24 15:17 05/25/24 15:26 Ancef Ivpb IV 05/26/24 00:16 50 mls/hr Q8H MONA Administration Insulin Human Lispro 0 unit 05/25/24 07:30 05/25/24 11:51 Insulin Lispro (Admelog) 1 Unit/0.01 Ml Unit SC 06/24/24 07:29 Not Given AC MONA Protocol Metoclopramide HCl 10 mg 05/24/24 18:36 Metoclopramide Inj 5 Mg/Ml Vial 2 Ml IVP 06/23/24 18:35 Q6H PRN NAUSEA OR VOMITING Protocol Ondansetron HCl 4 mg 05/25/24 15:17 Ondansetron Inj 2 Mg/Ml Inj 2 Ml IV 06/24/24 15:16 Q6HR PRN NAUSEA OR VOMITING Oxybutynin Chloride 5 mg 05/25/24 09:00 05/25/24 08:16 Oxybutynin Chlor 5 Mg Tablet PO 06/24/24 08:59 5 mg BID MONA Administration Oxycodone/Acetaminophen 1 tab 05/24/24 18:44 Oxycodone/Apap 5/325 Tablet PO 05/29/24 18:43 Q6HR PRN moderate pain 4-6 Phenytoin 100 mg 05/25/24 09:00 05/25/24 08:16 Phenytoin 100 Mg Capsr PO 06/24/24 08:59 100 mg QDAY MONA Administration Sennosides 1 tab 05/25/24 09:00 05/25/24 08:16 Senna Tablet PO 06/24/24 08:59 1 tab QDAY MONA Administration Protocol Sertraline HCl 100 mg 05/25/24 09:00 05/25/24 08:17 Sertraline Hcl 25 Mg Tablet PO 06/24/24 08:59 100 mg BID MONA Administration Tacrolimus 2 mg 05/25/24 09:00 05/25/24 08:18 Tacrolimus 1 Mg Capsule (Non-Formulary) PO 06/24/24 08:59 2 mg Q12HR MONA Administration Plan Patient is a 79-year-old male with history of nonischemic cardiomyopathy, chronic systolic heart failure with preserved EF 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 Imaging in the ED revealed acute displaced fracture to the femoral neck, lab work generally unremarkable however did reveal hyperglycemia of 203 and BNP of 435, creatinine levels 1.3 within patient's baseline range. Patient states he had gotten out of his tractor this afternoon, was on concrete ground when he had a fall. He does endorse pain on his left hip, scale to 3/10 at time of examination, but denies any numbness/tingling, weakness, chest pains, or headaches, remainder of ROS also unremarkable. Orthopedic team was consulted by ED, surgical repair is planned. Cardiology team consulted for preoperative cardiac clearance. #Acute displaced fracture left femoral neck #Pre-operative cardiac clearance Displaced fracture left femoral neck per L femur and hip x-ray findings in ED Orthopedic team consulted, surgical intervention completed 05/25 Last echo in Oct 2022: EF 60-65%, normal LV/RV size and function Cath in July 2021: Widely patent stent involving right coronary artery. De kassidy 90% stenosis discrete lesion around distal LAD, successful PCI stent placed Creatinine 1.3 on day of presentation Revised Cardiac risk index (RCRI) for pre-operative risk: 1 point (6% risk of major cardiac events) Plan: - Cleared for orthopedic surgery from cardiology standpoint. Low-risk patient, last echo was normal, stents placed >2 years ago - Cardiology will continue to follow #History of hypertension Blood pressure 179/98 at time of examination in ED, improved to 136/83 05/25 Plan: - Resumed home medications: lisiniopril 20mg qday - Started 5mg amlodipine qday (from 10mg qday home regimen) #History of T2DM - Management per primary team Patient case discussed with attending physician Dr. Brandon Poole, DO PGY-3
--- NOTE | 2024-05-25 16:00 | ESCONSULT_ITS ---
RE: CURTIS KAMINSKI : 1945 DATE OF CONSULTATION: 05/25/2024 Thank you, Dr. Reyes for asking me to consult on the patient whom I saw on 05/25/2024 early in the morning. HISTORY OF PRESENT ILLNESS: As per history available, the patient fell down at home and after that he was unable to walk. The patient was brought to the emergency room. X-ray was obtained, which revealed fractured neck of the left femur, which was displaced. The patient denies any history of loss of consciousness, chest pain, or generalized weakness. PAST MEDICAL HISTORY: The patient has had cardiomyopathy and underwent heart transplant in 2013. The patient also underwent a stent placement by Dr. Tal Taylor, the interior design teacher. No history of diabetes mellitus, asthma, or seizures. PAST SURGICAL HISTORY: Other surgical history includes right hand distal digits, second and third digit amputation in the past. DRUG HISTORY: The patient is on; 1. Aspirin. 2. Calcium. 3. Lisinopril. 4. Hydralazine. 5. Omeprazole. 6. Sertraline. 7. Vitamin E. 8. Plavix. ALLERGIES: NIL KNOWN. FAMILY HISTORY AND SOCIAL HISTORY: Noncontributory. PHYSICAL EXAMINATION: GENERAL: Normal built person. VITAL SIGNS: Pulse 84 per minute. Blood pressure 126/86. NECK: Soft, supple, no masses felt. Trachea is centrally placed. CARDIOVASCULAR SYSTEM: First and second heart sounds normal. No murmur heard. RESPIRATORY SYSTEM: Bilateral vesicular breath sounds. CHEST: Clear. ABDOMEN: Soft. No masses felt. Bowel sounds present. EXTREMITIES: Left lower limb examination revealed tenderness in the left groin area. The patient is unable to do SLR. Neurovascularly, it is intact. ASSESSMENT AND PLAN: The diagnosis and prognosis were explained to the patient in detail. Explained that he needs bipolar hemiarthroplasty. With the help of pictures and diagram, it was explained to the patient in detail. Risks, benefits, and limitations were explained. Risks with anesthesia included, but not limited to reaction to anesthetic agents, cardiac arrest or rarely it might be fatal. Risks with operation includes infection and if that happens, the patient may need further surgical procedure. Other risks include delayed healing, wound dehiscence, etc. Sometimes there is a risk of recurrent dislocation and for that the patient has to change some lifestyle and was explained to him. After discussing at length, the risks, benefits, and limitations, the patient wanted to proceed with surgery. Possibility of blood transfusion was discussed. The patient stated that he would take blood when it is absolutely necessary The patient is also cleared for surgical procedure by Dr. Tal Taylor. Surgery is book 05/25/2024. DT: 14:16:26 TT: 15:59:00 Ref: [id number] - TID: [id number]
--- NOTE | 2024-05-25 16:03 | PD.ANESPROG ---
Documentation for date of: 05/25/24 ANESTHESIA NOTE: Patient had GETA and L fascia iliaca block for L hip repair earlier today. Pre-op, he has h/o heart transplant and has been on immuno-suppresants. They reported he's no longer on Plavix but only takes 81 mg Aspirin. He did well intra-op and in PACU. Will defer further management to the floor team including resuming his pre-op meds as appropriate. Oj Roche MD Anesthesia Progress Note Progress Note Most recent Vital Signs: Last Vital Signs Temp 97.0 F 05/25/24 15:40 Pulse 87 05/25/24 15:40 Resp 18 05/25/24 15:40 BP 145/87 H 05/25/24 15:40 Pulse Ox 96 05/25/24 15:40 O2 Del Method Nasal Cannula 05/25/24 15:40 O2 Flow Rate 2 05/25/24 15:40
[2024-05-25] MEDS: EVEROLIMUS 0.25 MG PO (20:51)
[2024-05-26] VITALS (11 sets, daily range): BP systolic 109–178; BP diastolic 70–96; PULSE 79–106; RESP 16–19; TEMP 36.4–37.3; O2SAT 95–99; BMI 11.0; BMI 18.3
[2024-05-26 05:44] LABS: Basophils % (Auto) 0 % (0-2.5); Eosinophils % (Auto) 0 % (0-10); Hematocrit 33.2 % (41.0-53.0); Immature Granulocytes % (Auto) 0 % (0-0); Immature Granulocytes Auto 0.02 Thou/mm3 (0.00-0.00); Lymphocytes # (Auto) 1.2 Thou/mm3 (1.0-4.8); Lymphocytes % (Auto) 14 % (10-50); Mean Corpuscular HGB Conc 33.1 g/dl (31.0-37.0); Mean Corpuscular Hemoglobin 29.1 pg (25.0-35.0); Mean Corpuscular Volume 88 fL (80-100); Monocytes # (Auto) 1.2 Thou/mm3 (0.0-0.8); Monocytes % (Auto) 15 % (0-12); Neutrophils # (Auto) 5.8 Thou/mm3 (1.8-7.7); Neutrophils % (Auto) 70 % (37-80); Nucleated Red Blood Cell % 0 /100 WBC (0); Platelet Count 170 Thou/mm3 (140-440); RDW Standard Deviation 40.8 fL (35.1-43.9); Red Blood Count 3.78 Miln/mm3 (4.50-5.90); White Blood Count 8.3 Thou/mm3 (3.8-10.6)
[2024-05-26 06:17] LABS: Alanine Aminotransferase 19 U/L (10-49); Albumin, Serum 3.6 gm/dL (3.4-4.8); Albumin/Globulin Ratio 1.5 (1.2-2.2); Alkaline Phosphatase 87 U/L (46-116); Anion Gap 11 (7-16); Aspartate Amino Transferase 38 U/L (0-34); BUN/Creatinine Ratio 26 Ratio (12-20); Bilirubin,Total 0.3 mg/dL (0.3-1.2); Blood Urea Nitrogen 36 mg/dL (9-23); Calcium 9.2 mg/dL (8.3-10.6); Calcium (Corrected) 9.5 mg/dL (8.5-10.1); Carbon Dioxide 24.1 mMol/L (20.0-31.0); Chloride 107 mMol/L (98-107); Creatinine (Component) 1.4 mg/dL (0.6-1.3); Estimated Creatinine Clearance 33.7 mL/min (>60); Globulin 2.4 gm/dL (2.3-3.5); Glucose 141 mg/dL (74-106); Osmolality,Calculated 293 (275-295); Potassium 4.2 mMol/L (3.4-5.1); Sodium 142 mMol/L (136-145); eGFR 51 See Note
[2024-05-26] MEDS: NATEGLINIDE 120 MG TABLET PO ×3 (07:50→17:26)
[2024-05-26] MEDS: INSULIN LISPRO (AdmeLOG) 1 UNIT/0.01 ML UNIT SC ×3 (07:50→17:09)
[2024-05-26] MEDS: EVEROLIMUS 0.25 MG PO (08:27)
[2024-05-26] MEDS: TACROLIMUS 1 MG CAPSULE (NON-FORMULARY) 2 MG PO (08:30)
[2024-05-26] MEDS: ASCORBIC ACID 250 MG TABLET 500 MG PO (08:31)
[2024-05-26] MEDS: PHENYTOIN 100 MG CAPSR PO (08:31)
[2024-05-26] MEDS: Lisinopril 20 MG TABLET PO (08:34)
[2024-05-26] MEDS: ATORVASTATIN CALCIUM 20 MG TABLET 40 MG PO (08:34)
[2024-05-26] MEDS: amLODIPine BESYLATE 5 MG TABLET PO (08:35)
[2024-05-26] MEDS: SENNA TABLET 1 TAB PO (08:36)
[2024-05-26] MEDS: OXYBUTYNIN CHLOR 5 MG TABLET PO (08:36)
[2024-05-26] MEDS: SERTRALINE HCL 25 MG TABLET 100 MG PO (08:56)
--- NOTE | 2024-05-26 10:26 | ESPR_ITS ---
<Statement entered by Manjit Taylor MD - 05/27/24 13:50> I personally examined the patient postop day 2 admitted to the hospital fracture of the hip history of cardiac transplant hypertension doing fairly well all the medications have been resumed blood pressure slightly high but controlled well still have some pain at the site of surgery otherwise doing well evaluate the patient with PGY 2 Documentation for date of: 05/26/24 Subjective Subjective Interval history: Patient is evaluated bedside, day 1 postop, in no acute distress, stable vitals, recommended to resume patient's home medications. Exam Vital Signs Temp Pulse Resp BP Pulse Ox O2 Del Method O2 Flow Rate 97.8 F 89 18 163/93 H 99 Nasal Cannula 2 05/26/24 04:00 05/26/24 10:03 05/26/24 10:03 05/26/24 08:35 05/26/24 10:03 05/26/24 04:00 05/26/24 10:03 Narrative Exam General: AOx3, cooperative, in no acute distress HEENT: Atraumatic/normocephalic, LISA Heart: RRR, S1 and S2 without clicks or murmurs Lungs: Clear on auscultation bilaterally, no difficulty breathing Abdomen: Soft, nontender. Bowel sounds present on all quadrants Skin: No cyanosis or edema noted. 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 Neuro: Patient deferred moving left leg post-procedure, other mcdonald no focal neurological deficits noted on apperance Objective Labs 05/26/24 05:10 05/26/24 05:10 Labs: Laboratory Results - last 24 hr 05/26/24 05:10 WBC 8.3 RBC 3.78 L Hgb 11.0 L D Hct 33.2 L MCV 88 MCH 29.1 MCHC 33.1 RDW Std Deviation 40.8 Plt Count 170 Neut % (Auto) 70 Lymph % (Auto) 14 Mercer % (Auto) 15 H Eos % (Auto) 0 Baso % (Auto) 0 Neut # (Auto) 5.8 Lymph # (Auto) 1.2 Mercer # (Auto) 1.2 H Eos # (Auto) 0.0 Baso # (Auto) 0.0 Immature Gran # (Auto) 0.02 H Absolute Nucleated RBC 0.00 Immature Gran % 0 Nucleated RBC % 0 Sodium 142 Potassium 4.2 Chloride 107 Carbon Dioxide 24.1 Anion Gap 11 BUN 36 H Creatinine 1.4 H Estim Creat Clear Calc 33.7 L eGFR 51 L BUN/Creatinine Ratio 26 H Glucose 141 H Calculated Osmolality 293 Calcium 9.2 Corrected Calcium 9.5 Total Bilirubin 0.3 AST 38 H ALT 19 Alkaline Phosphatase 87 Total Protein 6.0 Albumin 3.6 D Globulin 2.4 Albumin/Globulin Ratio 1.5 Quality Measures Quality Measures none Advance care planning discussed with:: patient Assessment & Plan Assessment Current Active Medications: Generic Name Dose Route Start Last Admin Trade Name Freq PRN Reason Stop Dose Admin Acetaminophen 650 mg 05/24/24 18:36 Acetaminophen 325 Mg Tablet PO 06/23/24 18:35 Q6H PRN Fever >100.4 or pain 1-3 Amlodipine Besylate 5 mg 05/26/24 09:00 05/26/24 08:35 Amlodipine Besylate 5 Mg Tablet PO 06/25/24 08:59 5 mg QDAY MONA Administration Ascorbic Acid 500 mg 05/25/24 09:00 05/26/24 08:31 Ascorbic Acid 250 Mg Tablet PO 06/24/24 08:59 500 mg BID MONA Administration Atorvastatin Calcium 40 mg 05/26/24 09:00 05/26/24 08:34 Atorvastatin Calcium 20 Mg Tablet PO 06/25/24 08:59 40 mg QDAY MONA Administration Everolimus 0.25 Mg 0 ea 05/25/24 21:00 05/26/24 08:27 Tablets PO 06/24/24 20:59 1 tablet BID MONA Administration Everolimus 0.5 Mg 0 ea 05/25/24 21:00 05/26/24 08:25 Tablets PO 06/24/24 20:59 3 tablet BID MONA Administration Nateglinide 120 Mg 0 ea 05/25/24 17:00 05/26/24 07:50 Tablet PO 06/24/24 16:59 1 tablet AC MONA Administration Dextrose 25 ml 05/24/24 18:46 Dextrose 50%-Water Inj 50 Ml Syringe IV 06/23/24 18:45 Q15MIN PRN BG 50-70 responsive npo pt Dextrose 50 ml 05/24/24 18:46 Dextrose 50%-Water Inj 50 Ml Syringe IV 06/23/24 18:45 Q15MIN PRN BG <50 OR BG <70 & pt unresponsive Glucagon 1 mg 05/24/24 18:46 Glucagon Inj 1 Mg Vial IM Q15MIN PRN BG <70, and no IV access Hydromorphone HCl 0.25 mg 05/24/24 18:36 05/25/24 07:21 Hydromorphone Inj 2 Mg/Ml Vial IVP 05/29/24 18:35 0.25 mg Q3H PRN Administration Severe pain 7-10 Insulin Human Lispro 0 unit 05/25/24 07:30 05/26/24 07:50 Insulin Lispro (Admelog) 1 Unit/0.01 Ml Unit SC 06/24/24 07:29 1 unit AC MONA Administration Protocol Lisinopril 20 mg 05/26/24 09:00 05/26/24 08:34 Lisinopril 20 Mg Tablet PO 06/25/24 08:59 20 mg QDAY MONA Administration Metoclopramide HCl 10 mg 05/24/24 18:36 Metoclopramide Inj 5 Mg/Ml Vial 2 Ml IVP 06/23/24 18:35 Q6H PRN NAUSEA OR VOMITING Protocol Ondansetron HCl 4 mg 05/25/24 15:17 Ondansetron Inj 2 Mg/Ml Inj 2 Ml IV 06/24/24 15:16 Q6HR PRN NAUSEA OR VOMITING Oxybutynin Chloride 5 mg 05/25/24 09:00 05/26/24 08:36 Oxybutynin Chlor 5 Mg Tablet PO 06/24/24 08:59 5 mg BID MONA Administration Oxycodone/Acetaminophen 1 tab 05/24/24 18:44 Oxycodone/Apap 5/325 Tablet PO 05/29/24 18:43 Q6HR PRN moderate pain 4-6 Phenytoin 100 mg 05/25/24 09:00 05/26/24 08:31 Phenytoin 100 Mg Capsr PO 06/24/24 08:59 100 mg QDAY MONA Administration Sennosides 1 tab 05/25/24 09:00 05/26/24 08:36 Senna Tablet PO 06/24/24 08:59 1 tab QDAY MONA Administration Protocol Sertraline HCl 100 mg 05/25/24 09:00 05/26/24 08:56 Sertraline Hcl 25 Mg Tablet PO 06/24/24 08:59 100 mg BID MONA Administration Tacrolimus 2 mg 05/25/24 09:00 05/26/24 08:30 Tacrolimus 1 Mg Capsule (Non-Formulary) PO 06/24/24 08:59 2 mg Q12HR MONA Administration Plan Patient is a 79-year-old male with history of nonischemic cardiomyopathy, chronic systolic heart failure with preserved EF 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 Imaging in the ED revealed acute displaced fracture to the femoral neck, lab work generally unremarkable however did reveal hyperglycemia of 203 and BNP of 435, creatinine levels 1.3 within patient's baseline range. Patient states he had gotten out of his tractor this afternoon, was on concrete ground when he had a fall. He does endorse pain on his left hip, scale to 3/10 at time of examination, but denies any numbness/tingling, weakness, chest pains, or headaches, remainder of ROS also unremarkable. Orthopedic team was consulted by ED, surgical repair is planned. Cardiology team consulted for preoperative cardiac clearance. #Acute displaced fracture left femoral neck #Pre-operative cardiac clearance Displaced fracture left femoral neck per L femur and hip x-ray findings in ED Orthopedic team consulted, surgical intervention completed 05/25 Last echo in Oct 2022: EF 60-65%, normal LV/RV size and function Cath in July 2021: Widely patent stent involving right coronary artery. De kassidy 90% stenosis discrete lesion around distal LAD, successful PCI stent placed Creatinine 1.3 on day of presentation Revised Cardiac risk index (RCRI) for pre-operative risk: 1 point (6% risk of major cardiac events) Plan: - Cleared for orthopedic surgery from cardiology standpoint. Low-risk patient, last echo was normal, stents placed >2 years ago - Cardiology will continue to follow - resume home medications , including aspirin and atorvastatin, #History of hypertension Blood pressure 179/98 at time of examination in ED, improved to 136/83 05/25 Plan: - Resumed home medications: lisiniopril 20mg qday - Started 5mg amlodipine qday (from 10mg qday home regimen) #History of T2DM - Management per primary team Patient case discussed with attending physician Dr. Brandon Sprague [email or web address]
--- NOTE | 2024-05-26 14:30 | PD.RESPRO ---
Documentation for date of: 05/26/24 Subjective Subjective Interval history: No acute overnight events reported. Patient states that his left hip pain is tolerable however has not used any Pacolet or Dilaudid in the last 24 hours. Patient's bedside nurse stated that patient feels confused when using Dilaudid. Will discontinue Dilaudid and try tramadol to help with patient's discomfort. Patient does appear agitated and anxious at bedside. Patient was encouraged to stay in bed and only arise from bed when assistance is available either with nurse or physical therapy. Physical therapy saw patient, and recommended patient needing a front wheel walker at discharge as well as rehab. Ortho recommended starting Aspirin 81mg BID for DVT prophylaxis. Exam Vital Signs Temp Pulse Resp BP Pulse Ox O2 Del Method O2 Flow Rate 99.1 F 94 16 147/85 H 95 Nasal Cannula 2 05/26/24 12:00 05/26/24 12:00 05/26/24 12:00 05/26/24 12:00 05/26/24 12:00 05/26/24 12:00 05/26/24 12:00 Narrative Exam General Appearance: Pt is an elderly male, thin, fragile in mild acute distress laying in bed. HEENT: NC/AT, no scleral icterus, no conjunctival pallor, MMM Lungs: CTAB, no wheezes or crackles appreciated CVS: RRR, S1/S2 heard, no murmurs or rubs appreciated ABD: Soft, non-tender, non-distended, BS + in all 4 quadrants EXT: Right second and third digit amputations with well-healed scars no signs of erythema, bruise or hematoma noted on the left hip, radial pulses 2+ BL, DP pulses 2 + BL SKIN: Skin exam normal without any rashes. Neuro: A&O x 3. No gross neurological deficits. Motor and sensory grossly intact in B/L UL and LL except for left leg. Unable to test range of motion of left leg due to pain. Psych: Appropriate mood and affect Objective Labs 05/27/24 05:44 05/27/24 05:44 Labs: Laboratory Results - last 24 hr 05/26/24 05:10 WBC 8.3 RBC 3.78 L Hgb 11.0 L D Hct 33.2 L MCV 88 MCH 29.1 MCHC 33.1 RDW Std Deviation 40.8 Plt Count 170 Neut % (Auto) 70 Lymph % (Auto) 14 Randolph % (Auto) 15 H Eos % (Auto) 0 Baso % (Auto) 0 Neut # (Auto) 5.8 Lymph # (Auto) 1.2 Randolph # (Auto) 1.2 H Eos # (Auto) 0.0 Baso # (Auto) 0.0 Immature Gran # (Auto) 0.02 H Absolute Nucleated RBC 0.00 Immature Gran % 0 Nucleated RBC % 0 Sodium 142 Potassium 4.2 Chloride 107 Carbon Dioxide 24.1 Anion Gap 11 BUN 36 H Creatinine 1.4 H Estim Creat Clear Calc 33.7 L eGFR 51 L BUN/Creatinine Ratio 26 H Glucose 141 H Calculated Osmolality 293 Calcium 9.2 Corrected Calcium 9.5 Total Bilirubin 0.3 AST 38 H ALT 19 Alkaline Phosphatase 87 Total Protein 6.0 Albumin 3.6 D Globulin 2.4 Albumin/Globulin Ratio 1.5 Quality Measures Quality Measures none Advance care planning discussed with:: patient Assessment & Plan Assessment Current Active Medications: Generic Name Dose Route Start Last Admin Trade Name Freq PRN Reason Stop Dose Admin Acetaminophen 650 mg 05/24/24 18:36 Acetaminophen 325 Mg Tablet PO 06/23/24 18:35 Q6H PRN Fever >100.4 or pain 1-3 Amlodipine Besylate 5 mg 05/26/24 09:00 05/26/24 08:35 Amlodipine Besylate 5 Mg Tablet PO 06/25/24 08:59 5 mg QDAY MONA Administration Ascorbic Acid 500 mg 05/25/24 09:00 05/26/24 08:31 Ascorbic Acid 250 Mg Tablet PO 06/24/24 08:59 500 mg BID MONA Administration Atorvastatin Calcium 40 mg 05/26/24 09:00 05/26/24 08:34 Atorvastatin Calcium 20 Mg Tablet PO 06/25/24 08:59 40 mg QDAY MONA Administration Everolimus 0.25 Mg 0 ea 05/25/24 21:00 05/26/24 08:27 Tablets PO 06/24/24 20:59 1 tablet BID MONA Administration Everolimus 0.5 Mg 0 ea 05/25/24 21:00 05/26/24 08:25 Tablets PO 06/24/24 20:59 3 tablet BID MONA Administration Nateglinide 120 Mg 0 ea 05/25/24 17:00 05/26/24 11:33 Tablet PO 06/24/24 16:59 1 tablet AC MONA Administration Dextrose 25 ml 05/24/24 18:46 Dextrose 50%-Water Inj 50 Ml Syringe IV 06/23/24 18:45 Q15MIN PRN BG 50-70 responsive npo pt Dextrose 50 ml 05/24/24 18:46 Dextrose 50%-Water Inj 50 Ml Syringe IV 06/23/24 18:45 Q15MIN PRN BG <50 OR BG <70 & pt unresponsive Glucagon 1 mg 05/24/24 18:46 Glucagon Inj 1 Mg Vial IM Q15MIN PRN BG <70, and no IV access Hydromorphone HCl 0.25 mg 05/24/24 18:36 05/25/24 07:21 Hydromorphone Inj 2 Mg/Ml Vial IVP 05/29/24 18:35 0.25 mg Q3H PRN Administration Severe pain 7-10 Insulin Human Lispro 0 unit 05/25/24 07:30 05/26/24 11:34 Insulin Lispro (Admelog) 1 Unit/0.01 Ml Unit SC 06/24/24 07:29 3 unit AC MONA Administration Protocol Lisinopril 20 mg 05/26/24 09:00 05/26/24 08:34 Lisinopril 20 Mg Tablet PO 06/25/24 08:59 20 mg QDAY MONA Administration Metoclopramide HCl 10 mg 05/24/24 18:36 Metoclopramide Inj 5 Mg/Ml Vial 2 Ml IVP 06/23/24 18:35 Q6H PRN NAUSEA OR VOMITING Protocol Ondansetron HCl 4 mg 05/25/24 15:17 Ondansetron Inj 2 Mg/Ml Inj 2 Ml IV 06/24/24 15:16 Q6HR PRN NAUSEA OR VOMITING Oxybutynin Chloride 5 mg 05/25/24 09:00 05/26/24 08:36 Oxybutynin Chlor 5 Mg Tablet PO 06/24/24 08:59 5 mg BID MONA Administration Oxycodone/Acetaminophen 1 tab 05/24/24 18:44 Oxycodone/Apap 5/325 Tablet PO 05/29/24 18:43 Q6HR PRN moderate pain 4-6 Phenytoin 100 mg 05/25/24 09:00 05/26/24 08:31 Phenytoin 100 Mg Capsr PO 06/24/24 08:59 100 mg QDAY MONA Administration Sennosides 1 tab 05/25/24 09:00 05/26/24 08:36 Senna Tablet PO 06/24/24 08:59 1 tab QDAY MONA Administration Protocol Sertraline HCl 100 mg 05/25/24 09:00 05/26/24 08:56 Sertraline Hcl 25 Mg Tablet PO 06/24/24 08:59 100 mg BID MONA Administration Tacrolimus 2 mg 05/25/24 09:00 05/26/24 08:30 Tacrolimus 1 Mg Capsule (Non-Formulary) PO 06/24/24 08:59 2 mg Q12HR MONA Administration Plan Mr. Dove is a 79-year-old male with past medical history significant for Nonischemic cardiomyopathy, chronic systolic heart failure with preserved ejection fraction status postcardiac transplantation in July 2013, coronary artery disease status post stents, hypertension, hyperlipidemia, type 2 diabetes who presented to the ED with chief complaint of left hip pain status post ground-level fall and admitted to [facility] for further management of acute left hip fracture. #Acute displaced left femoral neck fracture POD Day #1 secondary to #Ground-level fall Patient presented to the ED with left hip pain x 1 day. Patient was on his tractor, and while getting off of a tractor, lost balance and fell on his left side injuring his left hip. Both femur x-ray and hip pelvis x-ray confirm displaced left femoral neck fracture. Cardiology provided cardiac clearance due to patient's history of cardiac transplant and stents for surgery. Orthopedist performed surgery on 05/26/24 and left hip bipolar hemiarthroplasty with Vicky implant. Pt recommended patient requiring FWW at discharge and rehab. -Orthopedics consulted, and will reach out regarding DVT prophylaxis medications -Regular diet started -Pain regimen: Mild to Moderate (1-3/10) Acetaminophen 650mg Q6H PO PRN, Mod to Severe (4-6/10) Tramadol 50mg Q6H PO PRN , Severe (7-10/10) Oxycodone 5mg Q6H PO PRN -Will start Aspirin 81mg BID for DVT prophylaxis #Hypertension #History of coronary artery disease status post stent placements #History of cardiac transplant July 2013 Patient takes home vitamin C 500 mg twice daily, everolimus 1.5 mg p.o. twice daily, Nateglinide 120mg BID, and tacrolimus 2 mg p.o. twice daily -Will resume patient's home Atorvastatin, Lisinopril, Amlodipine, and Hydralazine. -Continue to monitor vital signs -Will start Aspirin 81mg BID for DVT prophylaxis #History of seizure disorder Patient takes home phenytoin 100 mg p.o. daily -Resume home phenytoin #Type 2 diabetes not on chronic insulin therapy Patient's last A1c was 5.9%. Patient on home Januvia and Nateglinide. -Sliding scale insulin -Bedside glucose AC checks -Hypoglycemic protocol in place #Urinary incontinence/overactive bladder Patient takes home oxybutynin, used to take tamsulosin daily -Will resume patient's home oxybutynin #History of Depression/Anxiety -Will start home Mirtazepine Health Maintenance: DVT prophylaxis: Aspirin 81mg BID Diet: Regular diet Balderas: No Lines: PIV Supplemental O2: As needed CODE STATUS: Full code Disposition: Patient admitted to med/telemetry for further management of acute left hip fracture, s/p Day 1. Patient will require FWW and SNF. Patient's plan and care discussed with my attending, Dr. Gabino Reyes MD PGY-2 Attending Provider Attestation/Addendum I have examined the patient, reviewed labs and imaging findings, discussed the case with the resident(s), and reviewed entered orders. I agree with the plan of care as outlined in this note, with these additional summaries/recommendations: Patient seen at bedside. No acute overnight events. Patient is postoperative day #1 status post left hip bipolar hemiarthroplasty with Vicky implant. Patient appears to have tolerated the procedure well. He reports his pain is currently controlled. He is seen eating lunch. He denies having a bowel movement yet. He reports he was able to stand with physical therapy. We will follow-up with orthopedics on when to safely resume aspirin. Can continue home immunosuppressants for history of heart transplant. Repeat hematology and chemistry panel in AM. Patient is in agreement with SNF placement if needed. Dr. Gabino MD
[2024-05-26] MEDS: traMADol HCL 50 MG TABLET PO (15:49)
[2024-05-26] MEDS: hydrALAZINE HCL 25 MG TABLET PO (16:18)
[2024-05-26] MEDS: MIRTAZAPINE 15 MG TABLET PO (16:18)
[2024-05-26] MEDS: hydrOXYzine HCL 10 MG TABLET PO (17:26)
--- NOTE | 2024-05-26 18:37 | PD.RESEVENT ---
Documentation for date of: 05/26/24 Event Note Event Note: Verito sarmiento called for patient at approximately 6:30 pm. Patient was trying to get out of the bed, despite left leg in splint/immobilizer, not re-directable. He stated that he wanted to walk home. Patient was explained that he is in the hospital and is recovering from surgery. Patient received hydroxyzine 10 mg at 5:26 pm. Avoiding IV sedatives for now in the context of recent surgery and patient's advanced age and comorbidities and QTc is 480. Soft wrist restraints were ordered, patient was placed back into bed, code torsten was cleared. Елена Orellana, PGY-2
--- NOTE | 2024-05-26 18:40 | PC.NURSE ---
Patient has been trying to get out bed and keep on saying he wanted to go home. He is becoming combative and restless. Verito sarmiento was called in. Medical restraint was ordered and placed. Patient calm down with nurse on bedside.
--- NOTE | 2024-05-26 18:45 | PC.NURSE ---
Verito ramsey called on this pt. Pt found trying to get OOB, Yun ACUNA trying to reorient and prompt pt but pt refused to follow any command. Pt is agitated and wants to leave the hospital. Pt is disorient to place and time, Dr Orellana here and gave order for restraints for safety. Chandler soft wrist restraints applied for safety. Avasure placed in room.
--- NOTE | 2024-05-26 19:01 | PC.NURSE ---
Patient keeps on trying to get out of bed and removing his leads for the monitor. MD was notified by this nurse because she started to notice that patient looks anxious and stress. Patient stated he wanted to go home. MD came and assess the patient. Orders were given and carried out.
--- NOTE | 2024-05-26 19:14 | PC.NURSE ---
Pt moved to room 353, closed to the nurses station. Sitter provided at bedside, mumtaz wrist restraints removed, will cont to monitor for safety.
--- NOTE | 2024-05-26 19:28 | PC.NURSE ---
I called Reba, pt's and gave her update on pt's condition, informed her about the necessity and use of soft restraints, she verbalized understanding. She stated he was already confused this morning when we visited him, we will be there to see him in the morning . She also stated that pt had this kind of behavior when he had pneumonia in the past.
--- NOTE | 2024-05-26 22:05 | PC.NURSE ---
Dr. Gonzalez notified of patient refusing all of his evenings meds tonight.
[2024-05-27] VITALS (16 sets, daily range): BP systolic 108–175; BP diastolic 69–104; PULSE 78–115; RESP 18–20; TEMP 36.2–36.6; O2SAT 92–99
[2024-05-27] MEDS: DiphenhydrAMINE INJ 50 MG/ML VIAL 12.5 MG IV (00:01)
[2024-05-27] MEDS: LABETALOL INJ 5 MG/ML VIAL 20 ML 2.5 MG IVP (05:23)
[2024-05-27 06:16] LABS: Basophils % (Auto) 0 % (0-2.5); Eosinophils % (Auto) 0 % (0-10); Hematocrit 35.2 % (41.0-53.0); Hemoglobin 11.9 g/dL (13.5-16.0); Immature Granulocytes % (Auto) 0 % (0-0); Immature Granulocytes Auto 0.04 Thou/mm3 (0.00-0.00); Lymphocytes % (Auto) 10 % (10-50); Mean Corpuscular HGB Conc 33.8 g/dl (31.0-37.0); Mean Corpuscular Volume 86 fL (80-100); Monocytes # (Auto) 1.1 Thou/mm3 (0.0-0.8); Monocytes % (Auto) 11 % (0-12); Neutrophils # (Auto) 7.4 Thou/mm3 (1.8-7.7); Neutrophils % (Auto) 78 % (37-80); Nucleated Red Blood Cell % 0 /100 WBC (0); Platelet Count 187 Thou/mm3 (140-440); RDW Standard Deviation 38.9 fL (35.1-43.9); Red Blood Count 4.11 Miln/mm3 (4.50-5.90); White Blood Count 9.5 Thou/mm3 (3.8-10.6)
--- NOTE | 2024-05-27 06:34 | PC.NURSE ---
Dr. Pedraza notified of elevated BP and new orders received. Upon recheck, BP still high and Dr. Gonzalez notified and he said he would let the day team know. Will continue to monitor patient.
[2024-05-27 06:35] LABS: Alanine Aminotransferase 18 U/L (10-49); Albumin, Serum 3.8 gm/dL (3.4-4.8); Albumin/Globulin Ratio 1.5 (1.2-2.2); Alkaline Phosphatase 97 U/L (46-116); Anion Gap 9 (7-16); Aspartate Amino Transferase 49 U/L (0-34); BUN/Creatinine Ratio 25 Ratio (12-20); Bilirubin,Total 0.5 mg/dL (0.3-1.2); Blood Urea Nitrogen 28 mg/dL (9-23); Calcium 9.4 mg/dL (8.3-10.6); Calcium (Corrected) 9.6 mg/dL (8.5-10.1); Carbon Dioxide 23.9 mMol/L (20.0-31.0); Chloride 107 mMol/L (98-107); Creatinine (Component) 1.1 mg/dL (0.6-1.3); Estimated Creatinine Clearance 42.9 mL/min (>60); Globulin 2.6 gm/dL (2.3-3.5); Glucose 175 mg/dL (74-106); Osmolality,Calculated 288 (275-295); Sodium 140 mMol/L (136-145); Total Protein 6.4 gm/dL (5.7-8.2); eGFR > 60 See Note
--- NOTE | 2024-05-27 07:07 | ESPR_ITS ---
Documentation for date of: 05/27/24 Subjective Subjective Interval history: Overnight patient was agitated, code torsten was called due to patient was confused and wanted to walk and stand up. Patient received Benadryl IV x 1 and was placed on restraints. This morning at the bedside patient is alert and oriented x 1, confused, denies any acute complaints at this moment, is easy to reorient. Will discontinue tramadol and start IV morphine 1 mg every 4 hours for pain control. Exam Vital Signs Temp Pulse Resp BP Pulse Ox O2 Del Method O2 Flow Rate 97.4 F 103 H 20 174/104 H 97 Nasal Cannula 2 05/27/24 06:00 05/27/24 06:00 05/27/24 06:00 05/27/24 06:00 05/27/24 06:00 05/27/24 06:00 05/27/24 06:00 Narrative Exam General Appearance: Pt is an elderly male, thin, fragile in mild acute distress laying in bed, confused AO x 1 HEENT: NC/AT, no scleral icterus, no conjunctival pallor, MMM Lungs: CTAB, no wheezes or crackles appreciated CVS: RRR, S1/S2 heard, no murmurs or rubs appreciated ABD: Soft, non-tender, non-distended, BS + in all 4 quadrants EXT: Bilateral hand restraints, right second and third digit amputations with well-healed scars no signs of erythema, bruise or hematoma noted on the left hip, radial pulses 2+ BL, DP pulses 2 + BL SKIN: Skin exam normal without any rashes. Neuro: A&O x 1. No gross neurological deficits. Motor and sensory grossly intact in B/L UL and LL except for left leg. Unable to test range of motion of left leg due to pain. Psych: Confused Objective Labs 05/27/24 05:44 05/27/24 05:44 Labs: Laboratory Results - last 24 hr 05/27/24 05:44 WBC 9.5 RBC 4.11 L Hgb 11.9 L Hct 35.2 L MCV 86 MCH 29.0 MCHC 33.8 RDW Std Deviation 38.9 Plt Count 187 Neut % (Auto) 78 Lymph % (Auto) 10 [place] % (Auto) 11 Eos % (Auto) 0 Baso % (Auto) 0 Neut # (Auto) 7.4 Lymph # (Auto) 1.0 [place] # (Auto) 1.1 H Eos # (Auto) 0.0 Baso # (Auto) 0.0 Immature Gran # (Auto) 0.04 H Absolute Nucleated RBC 0.00 Immature Gran % 0 Nucleated RBC % 0 Sodium 140 Potassium 4.0 Chloride 107 Carbon Dioxide 23.9 Anion Gap 9 BUN 28 H Creatinine 1.1 Estim Creat Clear Calc 42.9 L eGFR > 60 BUN/Creatinine Ratio 25 H Glucose 175 H Calculated Osmolality 288 Calcium 9.4 Corrected Calcium 9.6 Total Bilirubin 0.5 AST 49 H ALT 18 Alkaline Phosphatase 97 Total Protein 6.4 Albumin 3.8 Globulin 2.6 Albumin/Globulin Ratio 1.5 Quality Measures Quality Measures none Advance care planning discussed with:: patient and spouse Assessment & Plan Assessment Current Active Medications: Generic Name Dose Route Start Last Admin Trade Name Freq PRN Reason Stop Dose Admin Acetaminophen 650 mg 05/24/24 18:36 Acetaminophen 325 Mg Tablet PO 06/23/24 18:35 Q6H PRN Fever >100.4 or pain 1-3 Amlodipine Besylate 5 mg 05/26/24 09:00 05/26/24 08:35 Amlodipine Besylate 5 Mg Tablet PO 06/25/24 08:59 5 mg QDAY MONA Administration Ascorbic Acid 500 mg 05/25/24 09:00 05/26/24 22:02 Ascorbic Acid 250 Mg Tablet PO 06/24/24 08:59 Not Given BID MONA Aspirin 81 mg 05/26/24 21:00 05/26/24 22:02 Aspirin Ec 81 Mg Tabec PO 06/25/24 20:59 Not Given BID MONA Atorvastatin Calcium 40 mg 05/26/24 09:00 05/26/24 08:34 Atorvastatin Calcium 20 Mg Tablet PO 06/25/24 08:59 40 mg QDAY MONA Administration Everolimus 0.25 Mg 0 ea 05/25/24 21:00 05/26/24 22:02 Tablets PO 06/24/24 20:59 Not Given BID MONA Everolimus 0.5 Mg 0 ea 05/25/24 21:00 05/26/24 22:02 Tablets PO 06/24/24 20:59 Not Given BID MONA Nateglinide 120 Mg 0 ea 05/25/24 17:00 05/26/24 17:26 Tablet PO 06/24/24 16:59 1 tablet AC MONA Administration Dextrose 25 ml 05/24/24 18:46 Dextrose 50%-Water Inj 50 Ml Syringe IV 06/23/24 18:45 Q15MIN PRN BG 50-70 responsive npo pt Dextrose 50 ml 05/24/24 18:46 Dextrose 50%-Water Inj 50 Ml Syringe IV 06/23/24 18:45 Q15MIN PRN BG <50 OR BG <70 & pt unresponsive Glucagon 1 mg 05/24/24 18:46 Glucagon Inj 1 Mg Vial IM Q15MIN PRN BG <70, and no IV access Hydralazine HCl 25 mg 05/26/24 16:00 05/26/24 22:03 Hydralazine Hcl 25 Mg Tablet PO 06/25/24 15:59 Not Given TID MONA Insulin Human Lispro 0 unit 05/25/24 07:30 05/26/24 17:09 Insulin Lispro (Admelog) 1 Unit/0.01 Ml Unit SC 06/24/24 07:29 3 unit AC MONA Administration Protocol Lisinopril 20 mg 05/26/24 09:00 05/26/24 08:34 Lisinopril 20 Mg Tablet PO 06/25/24 08:59 20 mg QDAY MONA Administration Metoclopramide HCl 10 mg 05/24/24 18:36 Metoclopramide Inj 5 Mg/Ml Vial 2 Ml IVP 06/23/24 18:35 Q6H PRN NAUSEA OR VOMITING Protocol Mirtazapine 15 mg 05/26/24 16:00 05/26/24 16:18 Mirtazapine 15 Mg Tablet PO 06/25/24 15:59 15 mg QDAY MONA Administration Ondansetron HCl 4 mg 05/25/24 15:17 Ondansetron Inj 2 Mg/Ml Inj 2 Ml IV 06/24/24 15:16 Q6HR PRN NAUSEA OR VOMITING Oxybutynin Chloride 5 mg 05/25/24 09:00 05/26/24 22:02 Oxybutynin Chlor 5 Mg Tablet PO 06/24/24 08:59 Not Given BID MONA Oxycodone/Acetaminophen 1 tab 05/26/24 15:31 Oxycodone/Apap 5/325 Tablet PO 05/29/24 18:43 Q6HR PRN severe pain Protocol Phenytoin 100 mg 05/25/24 09:00 05/26/24 08:31 Phenytoin 100 Mg Capsr PO 06/24/24 08:59 100 mg QDAY MONA Administration Sennosides 1 tab 05/25/24 09:00 05/26/24 08:36 Senna Tablet PO 06/24/24 08:59 1 tab QDAY MONA Administration Protocol Sertraline HCl 100 mg 05/25/24 09:00 05/26/24 22:02 Sertraline Hcl 25 Mg Tablet PO 06/24/24 08:59 Not Given BID MONA Tacrolimus 2 mg 05/25/24 09:00 05/26/24 22:02 Tacrolimus 1 Mg Capsule (Non-Formulary) PO 06/24/24 08:59 Not Given Q12HR MONA Tramadol HCl 50 mg 05/26/24 15:31 05/26/24 15:49 Tramadol Hcl 50 Mg Tablet PO 05/31/24 15:30 50 mg Q6HR PRN Administration Pain/Anxiety Protocol Plan Mr. 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 #Acute displaced left femoral neck fracture POD Day #2 secondary to #Ground-level fall Patient presented to the ED with left hip pain x 1 day. Patient was on his tractor, and while getting off of a tractor, lost balance and fell on his left side injuring his left hip. Both femur x-ray and hip pelvis x-ray confirm displaced left femoral neck fracture. Cardiology provided cardiac clearance due to patient's history of cardiac transplant and stents for surgery. Orthopedist performed surgery on 05/26/24 and left hip bipolar hemiarthroplasty with Vicky implant. Pt recommended patient requiring FWW at discharge and rehab. -Regular diet started -Pain regimen: Mild to Moderate (1-3/10) Acetaminophen 650mg Q6H PO PRN, Mod to Severe (4-6/10) Severe (7-10/10) Oxycodone 5mg Q6H PO PRN, morphine 1 mg IV every 4 hours -Continue aspirin 81mg BID for DVT prophylaxis #Delirium Hospital-acquired vs pain induced? Patient has been agitated, restless and confused possibly secondary to hospital induced delirium vs pain induced? Will optimize pain regimen, will discontinue tramadol due to possible interaction with sertraline and we will be reoriented patient ? One-to-one sitter ? Avoid chemical restraints ? Reorient patient constantly #Hypertension #History of coronary artery disease status post stent placements #History of cardiac transplant July 2013 Patient takes home vitamin C 500 mg twice daily, everolimus 1.5 mg p.o. twice daily, Nateglinide 120mg BID, and tacrolimus 2 mg p.o. twice daily -Will resume patient's home Atorvastatin, Lisinopril, Amlodipine, and Hydralazine. -Continue to monitor vital signs -Will start Aspirin 81mg BID for DVT prophylaxis #History of seizure disorder Patient takes home phenytoin 100 mg p.o. daily -Resume home phenytoin #Type 2 diabetes not on chronic insulin therapy Patient's last A1c was 5.9%. Patient on home Januvia and Nateglinide. -Sliding scale insulin -Bedside glucose AC checks -Hypoglycemic protocol in place #Urinary incontinence/overactive bladder Patient takes home oxybutynin, used to take tamsulosin daily -Will resume patient's home oxybutynin #History of Depression/Anxiety -Will start home Mirtazepine Health Maintenance: DVT prophylaxis: Aspirin 81mg BID Diet: Regular diet Balderas: No Lines: PIV Supplemental O2: As needed CODE STATUS: Full code Disposition: Patient admitted to med/telemetry for further management of acute left hip fracture, s/p Day 2. Patient will require FWW and SNF. Patient discussed with my attending Dr Gabino Brooks MD PGY-3 Disclaimer: Despite multiple revisions, due to the dictation software being used, the document bellow may not be free of grammatical errors including phonetic/typographic errors. However, this does not deter from our commitment to providing health care in the patient's best interest in mind. Attending Provider Attestation/Addendum I have examined the patient, reviewed labs and imaging findings, discussed the case with the resident(s), and reviewed entered orders. I agree with the plan of care as outlined in this note, with these additional summaries/recommendations: Patient seen at bedside. Overnight patient became agitated requiring soft wrist restraints. At bedside this morning patient is delirious. He is currently A & O X 1. Patient is resting calmly and easily redirectable. We will continue non- pharm measures to improve delirium. Patient is postoperative day #2 status post left hip bipolar hemiarthroplasty with Vicky implant. Patient appears to have tolerated the procedure well. He reports his pain is currently controlled. He denies having a bowel movement yet. He was able to work with physical therapy today. Patient started on DVT prophylaxis with aspirin. Continue home immunosuppressants for history of heart transplant. Repeat hematology and chemistry panel in AM. Patient is in agreement with SNF. Dr. Gabino MD
[2024-05-27] MEDS: INSULIN LISPRO (AdmeLOG) 1 UNIT/0.01 ML UNIT SC ×3 (07:40→17:18)
[2024-05-27] MEDS: NATEGLINIDE 120 MG TABLET PO ×3 (07:41→17:19)
[2024-05-27] MEDS: amLODIPine BESYLATE 5 MG TABLET PO (07:44)
[2024-05-27] MEDS: ASPIRIN EC 81 MG TABEC PO ×2 (07:45→21:49)
[2024-05-27] MEDS: ASCORBIC ACID 250 MG TABLET 500 MG PO ×2 (07:45→21:50)
[2024-05-27] MEDS: ATORVASTATIN CALCIUM 20 MG TABLET 40 MG PO (07:46)
[2024-05-27] MEDS: Lisinopril 20 MG TABLET PO (07:46)
[2024-05-27] MEDS: SENNA TABLET 1 TAB PO (07:47)
[2024-05-27] MEDS: OXYBUTYNIN CHLOR 5 MG TABLET PO ×2 (07:47→21:50)
[2024-05-27] MEDS: MIRTAZAPINE 15 MG TABLET PO (07:47)
[2024-05-27] MEDS: PHENYTOIN 100 MG CAPSR PO (07:47)
[2024-05-27] MEDS: SERTRALINE HCL 25 MG TABLET 100 MG PO ×2 (07:48→21:50)
[2024-05-27] MEDS: TACROLIMUS 1 MG CAPSULE (NON-FORMULARY) 2 MG PO ×2 (07:49→21:51)
[2024-05-27] MEDS: EVEROLIMUS 0.25 MG PO ×2 (07:51→21:52)
[2024-05-27] MEDS: MORPHINE SULF INJ 10 MG/ML VIAL IVP (09:21)
--- NOTE | 2024-05-27 15:52 | ESPR_ITS ---
RE: CURTIS KAMINSKI : 1945 DATE OF SERVICE: 05/27/2024 SUBJECTIVE: Curtis Kaminski is doing better today. He has a history of cardiac transplant and multiple stent placement in the LAD and RCA in the past. He came to us for a fracture of the hip, underwent surgery successfully. Postop, his blood pressure was elevated, resumed his home medications, feeling better now. He does not complain of any shortness of breath or chest pain. OBJECTIVE: Vital Signs: Blood pressure 120/70, pulse rate is 104, respirations 20, temperature is normal. HEENT: Head is atraumatic and normocephalic. Eyes normal. Neck: Supple. No JVD. Carotid pulses felt. No bruit. Chest: Symmetrical. Lungs: Decreased breath sounds. No rales. Heart: S1 and S2 . Abdomen: Thin and soft. Extremities: Mild edema. Genitourinary and Rectal: Not performed. Neurologic: Normal. ASSESSMENT: 1. Status post fracture of the hip, underwent surgery. 2. Status post cardiac transplant. 3. Hypertension. 4. Coronary artery disease, status post multivessel stent placement, stable. 5. Hypercholesterolemia. 6. Diabetes mellitus. RECOMMENDATIONS: Continue to monitor blood pressure closely. Resume all his regular home medications. The patient will be discharged to halfway facility for post acute rehab. The patient should be continue all his blood pressure medications, which is resumed with no major issues. We will continue to monitor the patient's cardiovascular status until discharge. DT: 12:37:30 TT: 15:50:00 Ref: [id number] - TID: [id number]
[2024-05-27] MEDS: hydrALAZINE HCL 25 MG TABLET PO (21:50)
--- NOTE | 2024-05-27 23:09 | PC.NURSE ---
Called Dr. Gonzalez to clarify admission status, whether MedSurg or Med/Tele. New orders received.
[2024-05-28] VITALS (16 sets, daily range): BP systolic 136–150; BP diastolic 75–96; PULSE 85–102; RESP 16–25; TEMP 36.4–37.4; O2SAT 94–98; BMI 11.0
--- NOTE | 2024-05-28 04:15 | PC.NURSE ---
placed pillow under left hip to off load pressure.
[2024-05-28] MEDS: hydrALAZINE HCL 25 MG TABLET PO ×3 (05:42→21:22)
[2024-05-28 05:59] LABS: Basophils % (Auto) 0 % (0-2.5); Eosinophils # (Auto) 0.1 Thou/mm3 (0.0-0.5); Eosinophils % (Auto) 2 % (0-10); Hematocrit 32.3 % (41.0-53.0); Hemoglobin 10.9 g/dL (13.5-16.0); Immature Granulocytes % (Auto) 1 % (0-0); Immature Granulocytes Auto 0.06 Thou/mm3 (0.00-0.00); Lymphocytes # (Auto) 1.1 Thou/mm3 (1.0-4.8); Lymphocytes % (Auto) 15 % (10-50); Mean Corpuscular HGB Conc 33.7 g/dl (31.0-37.0); Mean Corpuscular Hemoglobin 28.9 pg (25.0-35.0); Mean Corpuscular Volume 86 fL (80-100); Monocytes # (Auto) 0.9 Thou/mm3 (0.0-0.8); Monocytes % (Auto) 12 % (0-12); Neutrophils # (Auto) 5.6 Thou/mm3 (1.8-7.7); Neutrophils % (Auto) 71 % (37-80); Nucleated Red Blood Cell % 0 /100 WBC (0); Platelet Count 182 Thou/mm3 (140-440); RDW Standard Deviation 38.8 fL (35.1-43.9); Red Blood Count 3.77 Miln/mm3 (4.50-5.90); White Blood Count 7.8 Thou/mm3 (3.8-10.6)
[2024-05-28 06:22] LABS: Alanine Aminotransferase 36 U/L (10-49); Albumin, Serum 3.5 gm/dL (3.4-4.8); Albumin/Globulin Ratio 1.5 (1.2-2.2); Alkaline Phosphatase 121 U/L (46-116); Anion Gap 8 (7-16); Aspartate Amino Transferase 72 U/L (0-34); BUN/Creatinine Ratio 33 Ratio (12-20); Bilirubin,Total 0.3 mg/dL (0.3-1.2); Blood Urea Nitrogen 39 mg/dL (9-23); Calcium 9.3 mg/dL (8.3-10.6); Calcium (Corrected) 9.7 mg/dL (8.5-10.1); Carbon Dioxide 24.8 mMol/L (20.0-31.0); Chloride 109 mMol/L (98-107); Creatinine (Component) 1.2 mg/dL (0.6-1.3); Estimated Creatinine Clearance 39.4 mL/min (>60); Globulin 2.4 gm/dL (2.3-3.5); Glucose 234 mg/dL (74-106); Magnesium 1.8 mg/dL (1.6-2.6); Osmolality,Calculated 300 (275-295); Phosphorous 3.2 mg/dL (2.4-5.1); Potassium 4.1 mMol/L (3.4-5.1); Sodium 142 mMol/L (136-145); Total Protein 5.9 gm/dL (5.7-8.2); eGFR > 60 See Note
[2024-05-28] MEDS: NATEGLINIDE 120 MG TABLET PO ×3 (07:56→16:39)
[2024-05-28] MEDS: INSULIN LISPRO (AdmeLOG) 1 UNIT/0.01 ML UNIT SC ×3 (07:57→16:32)
[2024-05-28] MEDS: PHENYTOIN 100 MG CAPSR PO (08:06)
[2024-05-28] MEDS: ATORVASTATIN CALCIUM 20 MG TABLET 40 MG PO (08:06)
[2024-05-28] MEDS: TACROLIMUS 1 MG CAPSULE (NON-FORMULARY) 2 MG PO ×2 (08:06→21:22)
[2024-05-28] MEDS: SENNA TABLET 1 TAB PO (08:06)
[2024-05-28] MEDS: amLODIPine BESYLATE 5 MG TABLET PO (08:06)
[2024-05-28] MEDS: MIRTAZAPINE 15 MG TABLET PO (08:07)
[2024-05-28] MEDS: OXYBUTYNIN CHLOR 5 MG TABLET PO ×2 (08:07→21:23)
[2024-05-28] MEDS: ASCORBIC ACID 250 MG TABLET 500 MG PO ×2 (08:07→21:23)
[2024-05-28] MEDS: SERTRALINE HCL 25 MG TABLET 100 MG PO ×2 (08:07→21:23)
[2024-05-28] MEDS: Lisinopril 20 MG TABLET PO (08:07)
[2024-05-28] MEDS: ASPIRIN EC 81 MG TABEC PO ×2 (08:08→21:22)
[2024-05-28] MEDS: EVEROLIMUS 0.25 MG PO ×2 (08:09→21:25)
--- NOTE | 2024-05-28 12:24 | ESDS_ITS ---
<Statement entered by Imelda Brooks MD - 05/28/24 14:33> I discussed with and supervised the college intern physician who took care of this patient. I personally saw and examined the patient and discussed the assessment and plan with the entire medicine team, including my attending Dr. Lloyd, I agree with the assessment and plan as documented below Patient seen and examined at bedside today. Labs and imaging reviewed. patient is safe and stable for discharge all questions were answered recommendation were given. Patient will be discharged to SNF with: ? [place] as needed for pain ? Lisinopril 20 mg p.o. daily ? Eliquis 2.5 mg p.o. twice daily for 14 days per cardiology recommendations ? Aspirin 81 mg p.o. daily ? Follow-up with PCP in 1 week after discharge Imelda Brooks MD PGY-3 Disclaimer: Despite multiple revisions, due to the dictation software being used, the document bellow may not be free of grammatical errors including phonetic/typographic errors. However, this does not deter from our commitment to providing health care in the patient's best interest in mind. Planned Discharge Date 05/28/24 DS: Providers Provider Date of admission: 05/24/24 18:36 Primary care physician: Physician No Primary/Family Admitting Provider: Raul Lloyd MD Attending Provider on Admission: Raul Lloyd MD Consults: 05/24/24 17:12 Consult to Cardiology Stat Comment: Clearance for surgery Consulting Provider: Manjit Taylor 05/24/24 17:56 Consult to Orthopedic Stat Comment: Femoral neck fracture Consulting Provider: Will Mack 05/24/24 21:07 Referral Physical Therapy Routine Comment: Physician Instructions: 05/24/24 22:51 Referral Physical Therapy Routine Comment: Physician Instructions: Referral Respiratory Therapy Routine Comment: Health Equity Referral - Knowledge Deficit Routine Comment: Positive screening for knowledge deficit needs. 05/25/24 15:17 Referral Physical Therapy Routine Comment: Gait Training Physician Instructions: Instructions: Both legs full weight bear. 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 During hospital stay cardiology was consulted given the patient's extensive cardiac history for clearance for surgery. Orthopedic surgery was consulted and patient had left hip bipolar hemiarthroplasty. Vicky implant. After which postop management included pain control, physical therapy. At this time patient is medically stable for discharge. You will be prescribed [place] 5 for pain as needed, do not use more than 3 tablets a day. Your medication lisinopril dose has been adjusted to 20 mg daily. You have been prescribed Eliquis 2.5 mg twice a day for 2 weeks per cardiology recommendations. Please take aspirin 81 mg daily. Please follow up with your primary care physician within 1 week of discharge. Should any symptoms recur or worsen patient is instructed to return to the ED. Problem list: #Acute displaced left femoral neck fracture POD Day #2 secondary to #Ground-level fall #Delirium #Hypertension #History of coronary artery disease status post stent placements #History of cardiac transplant July 2013 #History of seizure disorder #Type 2 diabetes not on chronic insulin therapy #Urinary incontinence/overactive bladder #History of Depression/Anxiety Case discussed with my senior Dr. Brooks PGY-[address] Gabino Sandoval MD PGY-1 Status at Discharge Functional status at discharge: independent ambulation Overall status at discharge: patient is back to baseline Time Spent with Patient Time attestation: Total time spent providing and/or coordinating discharge services: Time spent: Greater than 30 minutes Exam Vital Signs Temp Pulse Resp BP Pulse Ox O2 Del Method O2 Flow Rate 98.2 F 102 H 19 150/96 H 98 Room Air 2 05/28/24 12:05/28/24 12:05/28/24 12:05/28/24 12:05/28/24 12:05/28/24 12:05/28/24 05:02 Narrative Exam Physical Exam GENERAL: NAD, AAOx3 HEENT: Moist mucosa. Eyes open, symmetrical, & clear CARDIO: Heart RRR, no obvious murmurs PULM: No noted coughing/dyspnea CTA B/L, no R/W/R GI: Abdomen soft, nondistended, no pain on palpation. BSx4 SKIN/MSK/EXT: No wounds/rashes/edema/amputations, no pain on palpation. Pedal pulses present B/L NEURO: AAOx3, no focal neuro deficits, able to move all 4 extremities Discharge Plan Plan Patient Disposition: Xfer Skilled Nsg Fac (SNF) Disposition Comment: Stable Care Plan Goals: You will be prescribed [place] 5 for pain as needed, do not use more than 3 tablets a day Your medication lisinopril dose has been adjusted to 20 mg daily You have been prescribed Eliquis 2.5 mg twice a day for 2 weeks per cardiology recommendations Please take aspirin 81 mg daily Please follow up with your primary care physician within 1 week of discharge Should any symptoms recur or worsen patient is instructed to return to the ED. Prescriptions/Referrals Prescriptions/Med Rec: New hydrocodone-acetaminophen 5-300 mg tablet 1 tab PO Q8H MDD 3 PRN (Reason: pain) Qty: 12 0RF lisinopril 20 mg Tablet 20 mg PO QDAY 30 Days Qty: 30 0RF Eliquis 2.5 mg tablet 2.5 mg PO BID 14 Days Qty: 28 0RF aspirin 81 mg capsule 81 mg PO QDAY Qty: 30 0RF Continued tamsulosin [Flomax] 0.4 mg capsule 0.4 mg PO QDAY phenytoin sodium extended [Dilantin Extended] 100 mg Capsule 100 mg PO QDAY mirtazapine [Remeron] 15 mg Tablet 15 mg PO QDAY atorvastatin 40 mg Tablet 40 mg PO QDAY omeprazole 40 mg Capsule,Delayed Release(Dr/Ec) 40 mg PO QDAY ascorbic acid (vitamin C) [Vitamin C] 500 mg Tablet 500 mg PO BID calcium carbonate-vitamin D2 600 mg calcium- 200 unit Tablet 1 tab PO DAILY vitamin E 400 unit Capsule 400 unit PO BID Januvia 50 mg Tablet 50 mg PO QDAY tacrolimus 1 mg Capsule 2 mg PO Q12HR nateglinide 120 mg Tablet 120 mg PO BID sertraline 100 mg Tablet 100 mg PO BID hydralazine 25 mg Tablet 25 mg PO TID oxybutynin chloride 5 mg Tablet 5 mg PO BID everolimus (immunosuppressive) 0.5 mg Tablet 1.5 mg PO BID Ozempic 0.25 mg or 0.5 mg (2 mg/3 mL) pen injector 0.25 mg SUBCUT QWEEK Discontinued aspirin 81 mg Tablet,Delayed Release (Dr/Ec) 81 mg PO QDAY lisinopril 5 mg Tablet 5 mg PO QDAY No Action clopidogrel [Plavix] 75 mg Tablet 75 mg PO QDAY Referrals: No Primary/Family,Physician [Primary Care Provider] - Patient/Caregiver Discharge Instructions Discharge Activity: activity as tolerated Education Materials: Surgery Anesthesia After, Preventing Surgical Site Infections Print Language: Argentine Stand Alone Forms: Carly Award Info., Patient Portal Info Letter Quality Discharge Quality Measures VTE prophylaxis MD Attestestation MD Attestation I have examined the patient, reviewed labs and imaging findings, discussed the case with the resident(s), and reviewed entered orders. I agree with the plan of care as outlined in this note. Time Spent: [address] Gabino MD
--- NOTE | 2024-05-28 16:15 | PC.SS ---
Follow up note: SS met with patient and spouse at bedside to discuss d/c options. They prefer SNF short term. SS sent off inquiry and pending a PASRR to be sent off. Patient and prefer [facility]. Facility has agreed. Patient will need a PASSR level 2 clearance. Tentative d/c for Tuesday
--- NOTE | 2024-05-28 17:47 | ESPR_ITS ---
<Statement entered by Manjit Taylor MD - 06/01/24 08:53> I personally examined the patient evaluated with resident physician patient doing much better. No complications blood pressure controlled well for surgery history of cardiac transplant previous stent placement currently clinically stable all essential components of progress note reviewed personally with PGY 2 will continue to monitor the patient to discharge and see him in the office as an outpatient Documentation for date of: 05/28/24 Subjective Subjective Interval history: The patient is evaluated at the bedside, in no acute distress, labs and overnight events reviewed. Patient started on aspirin 81 mg twice daily for DVT prophylaxis by primary team, discussed with Dr. Taylor, recommended Eliquis 2.5 mg twice daily for DVT prophylaxis to prevent pulmonary embolism, duration of therapy 2 weeks or at least until patient starts receiving aggressive rehab. Can continue aspirin 81 mg daily, in addition to home medications including atorvastatin, lisinopril. Exam Vital Signs Temp Pulse Resp BP Pulse Ox O2 Del Method O2 Flow Rate 97.9 F 90 16 136/75 H 96 Room Air 2 05/28/24 16:00 05/28/24 16:00 05/28/24 16:00 05/28/24 16:00 05/28/24 16:00 05/28/24 16:00 05/28/24 05:02 Narrative Exam General: AOx3, cooperative, in no acute distress HEENT: Atraumatic/normocephalic, LISA Heart: RRR, S1 and S2 without clicks or murmurs Lungs: Clear on auscultation bilaterally, no difficulty breathing Abdomen: Soft, nontender. Bowel sounds present on all quadrants Skin: No cyanosis or edema noted. 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 Neuro: Patient deferred moving left leg post-procedure, other mcdonald no focal neurological deficits noted on apperance Objective Labs 05/28/24 04:47 05/28/24 04:47 Labs: Laboratory Results - last 24 hr 05/24/24 05/28/24 19:04 04:47 WBC 7.8 RBC 3.77 L Hgb 10.9 L Hct 32.3 L MCV 86 MCH 28.9 MCHC 33.7 RDW Std Deviation 38.8 Plt Count 182 Neut % (Auto) 71 Lymph % (Auto) 15 [place] % (Auto) 12 Eos % (Auto) 2 Baso % (Auto) 0 Neut # (Auto) 5.6 Lymph # (Auto) 1.1 [place] # (Auto) 0.9 H Eos # (Auto) 0.1 Baso # (Auto) 0.0 Immature Gran # (Auto) 0.06 H Absolute Nucleated RBC 0.00 Immature Gran % 1 H Nucleated RBC % 0 Sodium 142 Potassium 4.1 Chloride 109 H Carbon Dioxide 24.8 Anion Gap 8 BUN 39 H Creatinine 1.2 Estim Creat Clear Calc 39.4 L eGFR > 60 BUN/Creatinine Ratio 33 H Glucose 234 H D Calculated Osmolality 300 H Calcium 9.3 Corrected Calcium 9.7 Phosphorus 3.2 Magnesium 1.8 Total Bilirubin 0.3 AST 72 H ALT 36 Alkaline Phosphatase 121 H D Total Protein 5.9 Albumin 3.5 Globulin 2.4 Albumin/Globulin Ratio 1.5 Crossmatch See Detail Quality Measures Quality Measures VTE prophylaxis Advance care planning discussed with:: patient Assessment & Plan Assessment Current Active Medications: Generic Name Dose Route Start Last Admin Trade Name Freq PRN Reason Stop Dose Admin Acetaminophen 650 mg 05/24/24 18:36 Acetaminophen 325 Mg Tablet PO 06/23/24 18:35 Q6H PRN Fever >100.4 or pain 1-3 Amlodipine Besylate 5 mg 05/26/24 09:00 05/28/24 08:06 Amlodipine Besylate 5 Mg Tablet PO 06/25/24 08:59 5 mg QDAY MONA Administration Ascorbic Acid 500 mg 05/25/24 09:00 05/28/24 08:07 Ascorbic Acid 250 Mg Tablet PO 06/24/24 08:59 500 mg BID MONA Administration Aspirin 81 mg 05/26/24 21:00 05/28/24 08:08 Aspirin Ec 81 Mg Tabec PO 06/25/24 20:59 81 mg BID MONA Administration Atorvastatin Calcium 40 mg 05/26/24 09:00 05/28/24 08:06 Atorvastatin Calcium 20 Mg Tablet PO 06/25/24 08:59 40 mg QDAY MONA Administration Everolimus 0.25 Mg 0 ea 05/25/24 21:00 05/28/24 08:09 Tablets PO 06/24/24 20:59 1 tablet BID MONA Administration Everolimus 0.5 Mg 0 ea 05/25/24 21:00 05/28/24 08:11 Tablets PO 06/24/24 20:59 3 tablet BID MONA Administration Nateglinide 120 Mg 0 ea 05/25/24 17:00 05/28/24 16:39 Tablet PO 06/24/24 16:59 1 tablet AC MONA Administration Dextrose 25 ml 05/24/24 18:46 Dextrose 50%-Water Inj 50 Ml Syringe IV 06/23/24 18:45 Q15MIN PRN BG 50-70 responsive npo pt Dextrose 50 ml 05/24/24 18:46 Dextrose 50%-Water Inj 50 Ml Syringe IV 06/23/24 18:45 Q15MIN PRN BG <50 OR BG <70 & pt unresponsive Glucagon 1 mg 05/24/24 18:46 Glucagon Inj 1 Mg Vial IM Q15MIN PRN BG <70, and no IV access Hydralazine HCl 25 mg 05/26/24 16:00 05/28/24 14:35 Hydralazine Hcl 25 Mg Tablet PO 06/25/24 15:59 25 mg TID MONA Administration Insulin Human Lispro 0 unit 05/25/24 07:30 05/28/24 16:32 Insulin Lispro (Admelog) 1 Unit/0.01 Ml Unit SC 06/24/24 07:29 2 unit AC MONA Administration Protocol Lisinopril 20 mg 05/26/24 09:00 05/28/24 08:07 Lisinopril 20 Mg Tablet PO 06/25/24 08:59 20 mg QDAY MONA Administration Mirtazapine 15 mg 05/26/24 16:00 05/28/24 08:07 Mirtazapine 15 Mg Tablet PO 06/25/24 15:59 15 mg QDAY MONA Administration Morphine Sulfate 1 mg 05/27/24 07:31 05/27/24 09:21 Morphine Sulf Inj 10 Mg/Ml Vial IVP 06/01/24 07:30 1 mg Q4HR PRN Administration PAIN SCALE 7-10 (Severe Ondansetron HCl 4 mg 05/25/24 15:17 Ondansetron Inj 2 Mg/Ml Inj 2 Ml IV 06/24/24 15:16 Q6HR PRN NAUSEA OR VOMITING Oxybutynin Chloride 5 mg 05/25/24 09:00 05/28/24 08:07 Oxybutynin Chlor 5 Mg Tablet PO 06/24/24 08:59 5 mg BID MONA Administration Oxycodone/Acetaminophen 1 tab 05/27/24 07:51 Oxycodone/Apap 5/325 Tablet PO 05/29/24 18:43 Q6HR PRN PAIN SCALE 4-6 (Moderate Phenytoin 100 mg 05/25/24 09:00 05/28/24 08:06 Phenytoin 100 Mg Capsr PO 06/24/24 08:59 100 mg QDAY MONA Administration Sennosides 1 tab 05/25/24 09:00 05/28/24 08:06 Senna Tablet PO 06/24/24 08:59 1 tab QDAY MONA Administration Protocol Sertraline HCl 100 mg 05/25/24 09:00 05/28/24 08:07 Sertraline Hcl 25 Mg Tablet PO 06/24/24 08:59 100 mg BID MONA Administration Tacrolimus 2 mg 05/25/24 09:00 05/28/24 08:06 Tacrolimus 1 Mg Capsule (Non-Formulary) PO 06/24/24 08:59 2 mg Q12HR MONA Administration Plan Patient is a 79-year-old male with history of nonischemic cardiomyopathy, chronic systolic heart failure with preserved EF 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 Imaging in the ED revealed acute displaced fracture to the femoral neck, lab work generally unremarkable however did reveal hyperglycemia of 203 and BNP of 435, creatinine levels 1.3 within patient's baseline range. Patient states he had gotten out of his tractor this afternoon, was on concrete ground when he had a fall. He does endorse pain on his left hip, scale to 3/10 at time of examination, but denies any numbness/tingling, weakness, chest pains, or headaches, remainder of ROS also unremarkable. Orthopedic team was consulted by ED, surgical repair is planned. Cardiology team consulted for preoperative cardiac clearance. #Acute displaced fracture left femoral neck s/p surgical repair Displaced fracture left femoral neck per L femur and hip x-ray findings in ED Orthopedic team consulted, surgical intervention completed 05/25 Last echo in Oct 2022: EF 60-65%, normal LV/RV size and function Cath in July 2021: Widely patent stent involving right coronary artery. [place] 90% stenosis discrete lesion around distal LAD, successful PCI stent placed Creatinine 1.3 on day of presentation Revised Cardiac risk index (RCRI) for pre-operative risk: 1 point (6% risk of major cardiac events) Plan: - Patient started on aspirin 81 mg twice daily for DVT prophylaxis by primary team, discussed with Dr. Taylor, recommended Eliquis 2.5 mg twice daily for DVT prophylaxis to prevent pulmonary embolism, duration of therapy 2 weeks or at least until patient starts receiving aggressive rehab. Can continue aspirin 81 mg daily, in addition to home medications including atorvastatin, lisinopril and amlodipine. #History of hypertension Blood pressure 179/98 at time of examination in ED, improved to 136/83 05/25 Plan: - Resumed home medications: lisiniopril 20mg qday - Started 5mg amlodipine qday (from 10mg qday home regimen) #History of T2DM - Management per primary team Patient case discussed with attending physician Dr. Brandon Sprague [id number]
[2024-05-29] VITALS (15 sets, daily range): BP systolic 90–155; BP diastolic 64–97; PULSE 84–104; RESP 16–99; TEMP 36.5–37.3; O2SAT 95–97
[2024-05-29 05:47] LABS: Basophils % (Auto) 0 % (0-2.5); Eosinophils # (Auto) 0.2 Thou/mm3 (0.0-0.5); Eosinophils % (Auto) 2 % (0-10); Hemoglobin 11.4 g/dL (13.5-16.0); Immature Granulocytes % (Auto) 0 % (0-0); Immature Granulocytes Auto 0.03 Thou/mm3 (0.00-0.00); Lymphocytes # (Auto) 1.2 Thou/mm3 (1.0-4.8); Lymphocytes % (Auto) 14 % (10-50); Mean Corpuscular HGB Conc 33.5 g/dl (31.0-37.0); Mean Corpuscular Hemoglobin 28.6 pg (25.0-35.0); Mean Corpuscular Volume 85 fL (80-100); Monocytes % (Auto) 11 % (0-12); Neutrophils # (Auto) 6.6 Thou/mm3 (1.8-7.7); Neutrophils % (Auto) 73 % (37-80); Nucleated Red Blood Cell % 0 /100 WBC (0); Platelet Count 267 Thou/mm3 (140-440); RDW Standard Deviation 39.3 fL (35.1-43.9); Red Blood Count 3.98 Miln/mm3 (4.50-5.90); White Blood Count 9.1 Thou/mm3 (3.8-10.6)
[2024-05-29] MEDS: hydrALAZINE HCL 25 MG TABLET PO ×2 (05:57→20:47)
[2024-05-29 06:13] LABS: Alanine Aminotransferase 43 U/L (10-49); Albumin, Serum 3.7 gm/dL (3.4-4.8); Albumin/Globulin Ratio 1.5 (1.2-2.2); Alkaline Phosphatase 113 U/L (46-116); Anion Gap 9 (7-16); Aspartate Amino Transferase 71 U/L (0-34); BUN/Creatinine Ratio 29 Ratio (12-20); Bilirubin,Total 0.4 mg/dL (0.3-1.2); Blood Urea Nitrogen 35 mg/dL (9-23); Calcium 9.1 mg/dL (8.3-10.6); Calcium (Corrected) 9.3 mg/dL (8.5-10.1); Carbon Dioxide 25.7 mMol/L (20.0-31.0); Chloride 106 mMol/L (98-107); Creatinine (Component) 1.2 mg/dL (0.6-1.3); Estimated Creatinine Clearance 41.1 mL/min (>60); Globulin 2.4 gm/dL (2.3-3.5); Glucose 152 mg/dL (74-106); Osmolality,Calculated 292 (275-295); Phosphorous 3.2 mg/dL (2.4-5.1); Potassium 4.1 mMol/L (3.4-5.1); Sodium 141 mMol/L (136-145); Total Protein 6.1 gm/dL (5.7-8.2); eGFR > 60 See Note
[2024-05-29] MEDS: NATEGLINIDE 120 MG TABLET PO ×3 (07:52→17:13)
[2024-05-29] MEDS: INSULIN LISPRO (AdmeLOG) 1 UNIT/0.01 ML UNIT SC ×2 (07:52→11:33)
[2024-05-29] MEDS: TACROLIMUS 1 MG CAPSULE (NON-FORMULARY) 2 MG PO ×2 (07:57→20:44)
[2024-05-29] MEDS: EVEROLIMUS 0.25 MG PO ×2 (07:58→20:42)
[2024-05-29] MEDS: ATORVASTATIN CALCIUM 20 MG TABLET 40 MG PO (08:02)
[2024-05-29] MEDS: Lisinopril 20 MG TABLET PO (08:06)
[2024-05-29] MEDS: SENNA TABLET 1 TAB PO (08:06)
[2024-05-29] MEDS: ASCORBIC ACID 250 MG TABLET 500 MG PO ×2 (08:06→20:42)
[2024-05-29] MEDS: MIRTAZAPINE 15 MG TABLET PO (08:06)
[2024-05-29] MEDS: amLODIPine BESYLATE 5 MG TABLET PO (08:07)
[2024-05-29] MEDS: OXYBUTYNIN CHLOR 5 MG TABLET PO ×2 (08:07→20:41)
[2024-05-29] MEDS: ASPIRIN EC 81 MG TABEC PO ×2 (08:07→20:42)
[2024-05-29] MEDS: SERTRALINE HCL 25 MG TABLET 100 MG PO ×2 (08:07→20:42)
[2024-05-29] MEDS: PHENYTOIN 100 MG CAPSR PO (08:08)
--- NOTE | 2024-05-29 10:53 | ESDS_ITS ---
<Statement entered by Imelda Brooks MD - 05/29/24 15:35> I discussed with and supervised the internet retailer physician who took care of this patient. I personally saw and examined the patient and discussed the assessment and plan with the entire medicine team, including my attending Dr. Lloyd, I agree with the assessment and plan as documented below Patient seen and examined at bedside today. Labs and imaging reviewed. Imelda Brooks MD PGY-3 Disclaimer: Despite multiple revisions, due to the dictation software being used, the document bellow may not be free of grammatical errors including phonetic/typographic errors. However, this does not deter from our commitment to providing health care in the patient's best interest in mind. <Statement entered by Carla Reyes MD - 05/29/24 15:26> I discussed with and supervised the internet retailer physician who took care of this patient. I personally saw and examined the patient and discussed the assessment and plan with the entire medicine team, including my attending Dr. Lloyd, I agree with most of the assessment and plan as documented below Carla Reyes M.D. PGY-2 Planned Discharge Date 05/29/24 DS: Providers Provider Date of admission: 05/24/24 18:36 Primary care physician: Physician No Primary/Family Admitting Provider: Raul Lloyd MD Attending Provider on Admission: Raul Lloyd MD Consults: 05/24/24 17:12 Consult to Cardiology Stat Comment: Clearance for surgery Consulting Provider: Manjit Taylor 05/24/24 17:56 Consult to Orthopedic Stat Comment: Femoral neck fracture Consulting Provider: Will Mack 05/24/24 21:07 Referral Physical Therapy Routine Comment: Physician Instructions: 05/24/24 22:51 Referral Physical Therapy Routine Comment: Physician Instructions: Referral Respiratory Therapy Routine Comment: Health Equity Referral - Knowledge Deficit Routine Comment: Positive screening for knowledge deficit needs. 05/25/24 15:17 Referral Physical Therapy Routine Comment: Gait Training Physician Instructions: Instructions: Both legs full weight bear. Left hip precaution Attending Provider on DC: Raul Lloyd MD Discharging Provider: Fareed Sandoval MD Anticipated date of discharge: 05/29/24 DS: Diagnosis Problem List Completed Was Problem List Reviewed/Reconciled?: Yes Hospital Course Hospital Course Hospital course: 79-year-old male with past medical history significant for Nonischemic cardiomyopathy, chronic systolic heart failure with preserved ejection fraction status postcardiac transplantation in July 2013, coronary artery disease status post stents, hypertension, hyperlipidemia, type 2 diabetes who presented to the ED with chief complaint of left hip pain status post ground-level fall and admitted to [facility] for further management of acute left hip fracture. During hospital stay cardiology was consulted given the patient's extensive cardiac history for clearance for surgery. Orthopedic surgery was consulted and patient had left hip bipolar hemiarthroplasty. Vicky implant. After which postop management included pain control, physical therapy. At this time patient is medically stable for discharge. You will be prescribed [place] 5 for pain as needed, do not use more than 3 tablets a day. Your medication lisinopril dose has been adjusted to 20 mg daily. You have been prescribed Eliquis 2.5 mg twice a day for 2 weeks per cardiology recommendations. Please take aspirin 81 mg daily. Please follow up with your [facility] care physician within 1 week of discharge. Should any symptoms recur or worsen patient is instructed to return to the ED. Problem list: #Acute displaced left femoral neck fracture #Ground-level fall #Delirium #Hypertension #History of coronary artery disease status post stent placements #History of cardiac transplant July 2013 #History of seizure disorder #Type 2 diabetes not on chronic insulin therapy #Urinary incontinence/overactive bladder #History of Depression/Anxiety Case discussed with my seniors Dr. Reyes PGY-2, Dr. Brooks PGY-[address] Gabino Sandoval MD PGY-1 Status at Discharge Functional status at discharge: independent ambulation Overall status at discharge: patient is back to baseline Time Spent with Patient Time attestation: Total time spent providing and/or coordinating discharge services: Time spent: Greater than 30 minutes Exam Vital Signs Temp Pulse Resp BP Pulse Ox O2 Del Method O2 Flow Rate 97.7 F 98 18 141/85 H 96 Room Air 2 05/29/24 08:00 05/29/24 08:07 05/29/24 08:00 05/29/24 08:07 05/29/24 08:00 05/29/24 08:00 05/28/24 05:02 Narrative Exam Physical Exam GENERAL: NAD, AAOx3 HEENT: Moist mucosa. Eyes open, symmetrical, & clear CARDIO: Heart RRR, no obvious murmurs PULM: No noted coughing/dyspnea CTA B/L, no R/W/R GI: Abdomen soft, nondistended, no pain on palpation. BSx4 SKIN/MSK/EXT: No wounds/rashes/edema/amputations, no pain on palpation. Pedal pu lses present B/L NEURO: AAOx3, no focal neuro deficits, able to move all 4 extremities Discharge Plan Plan Patient Disposition: Xfer Skilled Nsg Fac (SNF) Disposition Comment: Stable Care Plan Goals: You will be prescribed [place] 5 for pain as needed, do not use more than 3 tablets a day Your medication lisinopril dose has been adjusted to 20 mg daily You have been prescribed Eliquis 2.5 mg twice a day for 2 weeks per cardiology recommendations Please take aspirin 81 mg daily Please follow up with your primary care physician within 1 week of discharge Should any symptoms recur or worsen patient is instructed to return to the ED. Prescriptions/Referrals Prescriptions/Med Rec: New hydrocodone-acetaminophen 5-300 mg tablet 1 tab PO Q8H MDD 3 PRN (Reason: pain) Qty: 12 0RF lisinopril 20 mg Tablet 20 mg PO QDAY 30 Days Qty: 30 0RF Eliquis 2.5 mg tablet 2.5 mg PO BID 14 Days Qty: 28 0RF aspirin 81 mg capsule 81 mg PO QDAY Qty: 30 0RF Continued tamsulosin [Flomax] 0.4 mg capsule 0.4 mg PO QDAY phenytoin sodium extended [Dilantin Extended] 100 mg Capsule 100 mg PO QDAY mirtazapine [Remeron] 15 mg Tablet 15 mg PO QDAY atorvastatin 40 mg Tablet 40 mg PO QDAY omeprazole 40 mg Capsule,Delayed Release(Dr/Ec) 40 mg PO QDAY ascorbic acid (vitamin C) [Vitamin C] 500 mg Tablet 500 mg PO BID calcium carbonate-vitamin D2 600 mg calcium- 200 unit Tablet 1 tab PO DAILY vitamin E 400 unit Capsule 400 unit PO BID Januvia 50 mg Tablet 50 mg PO QDAY tacrolimus 1 mg Capsule 2 mg PO Q12HR nateglinide 120 mg Tablet 120 mg PO BID sertraline 100 mg Tablet 100 mg PO BID hydralazine 25 mg Tablet 25 mg PO TID oxybutynin chloride 5 mg Tablet 5 mg PO BID everolimus (immunosuppressive) 0.5 mg Tablet 1.5 mg PO BID Ozempic 0.25 mg or 0.5 mg (2 mg/3 mL) pen injector 0.25 mg SUBCUT QWEEK Discontinued clopidogrel [Plavix] 75 mg Tablet 75 mg PO QDAY aspirin 81 mg Tablet,Delayed Release (Dr/Ec) 81 mg PO QDAY lisinopril 5 mg Tablet 5 mg PO QDAY Referrals: No Primary/Family,Physician [Primary Care Provider] - Patient/Caregiver Discharge Instructions Discharge Activity: activity as tolerated Education Materials: Surgery Anesthesia After, Preventing Surgical Site Infections Print Language: Romanian Stand Alone Forms: [employer] Award Info., Patient Portal Info Letter Discharge Order Discharge Orders: Discharge (Routine); Ordered 05/29/24 Ordered By: Cosme Chery Quality Discharge Quality Measures VTE prophylaxis Attestestation MD Attestation I have examined the patient, reviewed labs and imaging findings, discussed the case with the resident(s), and reviewed entered orders. I agree with the plan of care as outlined in this note. Time Spent: [address] Gabino MD
--- NOTE | 2024-05-29 13:37 | PC.NURSE ---
Notified MD Chinchilla on pts current bp of 90/54-90HR. No new orders received per will come see pt at this time.
[2024-05-29] MEDS: SODIUM CHLORIDE 0.9% 500 ML 500 ML 999 ML IV (13:49)
--- NOTE | 2024-05-29 14:54 | PC.SS ---
MOLD MAINTENANCE TECHNICIAN left voicemail with [facility] requesting return call to initiate closure of [facility] Level II referral. Patient to d/c to [facility] pending [facility] closure.
--- NOTE | 2024-05-29 15:25 | PC.SS ---
SOCIAL AND HUMAN SERVICES ASSISTANT left voicemail with [facility] requesting return call to initiate closure of [facility] Level II referral. Patient to d/c to [facility] pending [facility] closure.
--- NOTE | 2024-05-29 16:02 | PC.SS ---
Rounding Note: Patient possessing soft blood pressure. Plan is to toddler caregiver small bolus and monitor blood pressure.
--- NOTE | 2024-05-29 16:44 | PC.SS ---
PERSONAL BANKING ASSISTANT contacted [facility] to inform SNF that [facility] Level II pending closure. Upon [facility] closure transportation will be arranged to have patient transition to SNF.
--- NOTE | 2024-05-29 17:04 | PC.SS ---
MURAL ARTIST notified Med Surg community development technician that [facility] has not been closed, therefore patient will be unable to discharge to SNF today.
--- NOTE | 2024-05-29 17:22 | ESPR_ITS ---
<Statement entered by Manjit Taylor MD - 06/01/24 08:53> I personally examined the patient evaluated with resident physician patient doing much better. No complications blood pressure controlled well for surgery history of cardiac transplant previous stent placement currently clinically stable all essential components of progress note reviewed personally with PGY 2 will continue to monitor the patient to discharge and see him in the office as an outpatienth Documentation for date of: 05/29/24 Subjective Subjective Interval history: Patient evaluated bedside, asymptomatic, recovering well from surgery. Started on Eliquis for DVT prophylaxis. He is pending discharge to postacute rehab today afternoon. Exam Vital Signs Temp Pulse Resp BP Pulse Ox O2 Del Method O2 Flow Rate 97.7 F 92 20 97/65 96 Room Air 2 05/29/24 14:50 05/29/24 16:00 05/29/24 14:50 05/29/24 14:50 05/29/24 14:50 05/29/24 14:50 05/29/24 14:50 Narrative Exam Physical Exam GENERAL: NAD, AAOx3 HEENT: Moist mucosa. Eyes open, symmetrical, & clear CARDIO: Heart RRR, no obvious murmurs PULM: No noted coughing/dyspnea CTA B/L, no R/W/R GI: Abdomen soft, nondistended, no pain on palpation. BSx4 SKIN/MSK/EXT: No wounds/rashes/edema/amputations, no pain on palpation. Pedal pulses present B/L NEURO: AAOx3, no focal neuro deficits, able to move all 4 extremities Objective Labs 05/29/24 04:39 05/29/24 04:39 Labs: Laboratory Results - last 24 hr 05/29/24 04:39 WBC 9.1 RBC 3.98 L Hgb 11.4 L Hct 34.0 L MCV 85 MCH 28.6 MCHC 33.5 RDW Std Deviation 39.3 Plt Count 267 D Neut % (Auto) 73 Lymph % (Auto) 14 [place] % (Auto) 11 Eos % (Auto) 2 Baso % (Auto) 0 Neut # (Auto) 6.6 Lymph # (Auto) 1.2 [place] # (Auto) 1.0 H Eos # (Auto) 0.2 Baso # (Auto) 0.0 Immature Gran # (Auto) 0.03 H Absolute Nucleated RBC 0.00 Immature Gran % 0 Nucleated RBC % 0 Sodium 141 Potassium 4.1 Chloride 106 Carbon Dioxide 25.7 Anion Gap 9 BUN 35 H Creatinine 1.2 Estim Creat Clear Calc 41.1 L eGFR > 60 BUN/Creatinine Ratio 29 H Glucose 152 H D Calculated Osmolality 292 Calcium 9.1 Corrected Calcium 9.3 Phosphorus 3.2 Magnesium 2.0 Total Bilirubin 0.4 AST 71 H ALT 43 Alkaline Phosphatase 113 Total Protein 6.1 Albumin 3.7 Globulin 2.4 Albumin/Globulin Ratio 1.5 Quality Measures Quality Measures VTE prophylaxis Advance care planning discussed with:: patient Assessment & Plan Assessment Current Active Medications: Generic Name Dose Route Start Last Admin Trade Name Freq PRN Reason Stop Dose Admin Acetaminophen 650 mg 05/24/24 18:36 Acetaminophen 325 Mg Tablet PO 06/23/24 18:35 Q6H PRN Fever >100.4 or pain 1-3 Amlodipine Besylate 5 mg 05/26/24 09:00 05/29/24 08:07 Amlodipine Besylate 5 Mg Tablet PO 06/25/24 08:59 5 mg QDAY MONA Administration Ascorbic Acid 500 mg 05/25/24 09:00 05/29/24 08:06 Ascorbic Acid 250 Mg Tablet PO 06/24/24 08:59 500 mg BID MONA Administration Aspirin 81 mg 05/26/24 21:00 05/29/24 08:07 Aspirin Ec 81 Mg Tabec PO 06/25/24 20:59 81 mg BID MONA Administration Atorvastatin Calcium 40 mg 05/26/24 09:00 05/29/24 08:02 Atorvastatin Calcium 20 Mg Tablet PO 06/25/24 08:59 40 mg QDAY MONA Administration Everolimus 0.25 Mg 0 ea 05/25/24 21:00 05/29/24 07:58 Tablets PO 06/24/24 20:59 1 tablet BID MONA Administration Everolimus 0.5 Mg 0 ea 05/25/24 21:00 05/29/24 08:00 Tablets PO 06/24/24 20:59 3 tablet BID MONA Administration Nateglinide 120 Mg 0 ea 05/25/24 17:00 05/29/24 17:13 Tablet PO 06/24/24 16:59 1 tablet AC MONA Administration Dextrose 25 ml 05/24/24 18:46 Dextrose 50%-Water Inj 50 Ml Syringe IV 06/23/24 18:45 Q15MIN PRN BG 50-70 responsive npo pt Dextrose 50 ml 05/24/24 18:46 Dextrose 50%-Water Inj 50 Ml Syringe IV 06/23/24 18:45 Q15MIN PRN BG <50 OR BG <70 & pt unresponsive Glucagon 1 mg 05/24/24 18:46 Glucagon Inj 1 Mg Vial IM Q15MIN PRN BG <70, and no IV access Hydralazine HCl 25 mg 05/26/24 16:00 05/29/24 15:32 Hydralazine Hcl 25 Mg Tablet PO 06/25/24 15:59 Not Given TID [facility] Insulin Human Lispro 0 unit 05/25/24 07:30 05/29/24 17:14 Insulin Lispro (Admelog) 1 Unit/0.01 Ml Unit SC 06/24/24 07:29 Not Given AC [facility] Protocol Lisinopril 20 mg 05/26/24 09:00 05/29/24 08:06 Lisinopril 20 Mg Tablet PO 06/25/24 08:59 20 mg QDAY MONA Administration Mirtazapine 15 mg 05/30/24 21:00 Mirtazapine 15 Mg Tablet PO 06/25/24 15:59 HS [facility] Morphine Sulfate 1 mg 05/27/24 07:31 05/27/24 09:21 Morphine Sulf Inj 10 Mg/Ml Vial IVP 06/01/24 07:30 1 mg Q4HR PRN Administration PAIN SCALE 7-10 (Severe Ondansetron HCl 4 mg 05/25/24 15:17 Ondansetron Inj 2 Mg/Ml Inj 2 Ml IV 06/24/24 15:16 Q6HR PRN NAUSEA OR VOMITING Oxybutynin Chloride 5 mg 05/25/24 09:00 05/29/24 08:07 Oxybutynin Chlor 5 Mg Tablet PO 06/24/24 08:59 5 mg BID MONA Administration Oxycodone/Acetaminophen 1 tab 05/27/24 07:51 Oxycodone/Apap 5/325 Tablet PO 05/29/24 18:43 Q6HR PRN PAIN SCALE 4-6 (Moderate Phenytoin 100 mg 05/25/24 09:00 05/29/24 08:08 Phenytoin 100 Mg Capsr PO 06/24/24 08:59 100 mg QDAY MONA Administration Sennosides 1 tab 05/25/24 09:00 05/29/24 08:06 Senna Tablet PO 06/24/24 08:59 1 tab QDAY MONA Administration Protocol Sertraline HCl 100 mg 05/25/24 09:00 05/29/24 08:07 Sertraline Hcl 25 Mg Tablet PO 06/24/24 08:59 100 mg BID MONA Administration Tacrolimus 2 mg 05/25/24 09:00 05/29/24 07:57 Tacrolimus 1 Mg Capsule (Non-Formulary) PO 06/24/24 08:59 2 mg Q12HR MONA Administration Plan Patient is a 79-year-old male with history of nonischemic cardiomyopathy, chronic systolic heart failure with preserved EF 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 Imaging in the ED revealed acute displaced fracture to the femoral neck, lab work generally unremarkable however did reveal hyperglycemia of 203 and BNP of 435, creatinine levels 1.3 within patient's baseline range. Patient states he had gotten out of his tractor this afternoon, was on concrete ground when he had a fall. He does endorse pain on his left hip, scale to 3/10 at time of examination, but denies any numbness/tingling, weakness, chest pains, or headaches, remainder of ROS also unremarkable. Orthopedic team was consulted by ED, surgical repair is planned. Cardiology team consulted for preoperative cardiac clearance. #Acute displaced fracture left femoral neck s/p surgical repair Displaced fracture left femoral neck per L femur and hip x-ray findings in ED Orthopedic team consulted, surgical intervention completed 05/25 Last echo in Oct 2022: EF 60-65%, normal LV/RV size and function Cath in July 2021: Widely patent stent involving right coronary artery. [place] kass[place] 90% stenosis discrete lesion around distal LAD, successful PCI stent placed Creatinine 1.3 on day of presentation Revised Cardiac risk index (RCRI) for pre-operative risk: 1 point (6% risk of major cardiac events) Plan: - Patient started on aspirin 81 mg twice daily for DVT prophylaxis by primary team, discussed with Dr. Taylor, recommended Eliquis 2.5 mg twice daily for DVT prophylaxis to prevent pulmonary embolism, duration of therapy 2 weeks or at least until patient starts receiving aggressive rehab. Can continue aspirin 81 mg daily, in addition to home medications including atorvastatin, lisinopril and amlodipine. #History of hypertension Blood pressure 179/98 at time of examination in ED, improved to 136/83 05/25 Plan: - Resumed home medications: lisiniopril 20mg qday - Started 5mg amlodipine qday (from 10mg qday home regimen) #History of T2DM - Management per primary team Patient case discussed with attending physician Dr. Brandon Sprague [email or web address]
[2024-05-30] VITALS (9 sets, daily range): BP systolic 114–134; BP diastolic 66–82; PULSE 70–102; RESP 16–97; TEMP 36.6–37.3; O2SAT 95–98
[2024-05-30] MEDS: hydrALAZINE HCL 25 MG TABLET PO ×2 (05:29→13:41)
[2024-05-30 05:48] LABS: Basophils % (Auto) 0 % (0-2.5); Eosinophils # (Auto) 0.3 Thou/mm3 (0.0-0.5); Eosinophils % (Auto) 4 % (0-10); Hematocrit 32.8 % (41.0-53.0); Hemoglobin 10.9 g/dL (13.5-16.0); Immature Granulocytes % (Auto) 1 % (0-0); Immature Granulocytes Auto 0.04 Thou/mm3 (0.00-0.00); Lymphocytes # (Auto) 1.3 Thou/mm3 (1.0-4.8); Lymphocytes % (Auto) 17 % (10-50); Mean Corpuscular HGB Conc 33.2 g/dl (31.0-37.0); Mean Corpuscular Hemoglobin 28.7 pg (25.0-35.0); Mean Corpuscular Volume 86 fL (80-100); Monocytes # (Auto) 0.9 Thou/mm3 (0.0-0.8); Monocytes % (Auto) 11 % (0-12); Neutrophils # (Auto) 5.2 Thou/mm3 (1.8-7.7); Neutrophils % (Auto) 67 % (37-80); Nucleated Red Blood Cell % 0 /100 WBC (0); Platelet Count 252 Thou/mm3 (140-440); White Blood Count 7.7 Thou/mm3 (3.8-10.6)
[2024-05-30 06:18] LABS: Alanine Aminotransferase 49 U/L (10-49); Albumin, Serum 3.5 gm/dL (3.4-4.8); Albumin/Globulin Ratio 1.5 (1.2-2.2); Alkaline Phosphatase 108 U/L (46-116); Anion Gap 10 (7-16); Aspartate Amino Transferase 73 U/L (0-34); BUN/Creatinine Ratio 31 Ratio (12-20); Bilirubin,Total 0.4 mg/dL (0.3-1.2); Blood Urea Nitrogen 37 mg/dL (9-23); Calcium 8.9 mg/dL (8.3-10.6); Calcium (Corrected) 9.3 mg/dL (8.5-10.1); Carbon Dioxide 24.1 mMol/L (20.0-31.0); Chloride 107 mMol/L (98-107); Creatinine (Component) 1.2 mg/dL (0.6-1.3); Estimated Creatinine Clearance 41.1 mL/min (>60); Globulin 2.4 gm/dL (2.3-3.5); Glucose 137 mg/dL (74-106); Osmolality,Calculated 291 (275-295); Phosphorous 3.6 mg/dL (2.4-5.1); Potassium 4.5 mMol/L (3.4-5.1); Sodium 141 mMol/L (136-145); Total Protein 5.9 gm/dL (5.7-8.2); eGFR > 60 See Note
[2024-05-30] MEDS: TACROLIMUS 1 MG CAPSULE (NON-FORMULARY) 2 MG PO (08:19)
[2024-05-30] MEDS: EVEROLIMUS 0.25 MG PO (08:21)
[2024-05-30] MEDS: SERTRALINE HCL 25 MG TABLET 100 MG PO (08:22)
[2024-05-30] MEDS: OXYBUTYNIN CHLOR 5 MG TABLET PO (08:23)
[2024-05-30] MEDS: Lisinopril 20 MG TABLET PO (08:24)
[2024-05-30] MEDS: ATORVASTATIN CALCIUM 20 MG TABLET 40 MG PO (08:25)
[2024-05-30] MEDS: PHENYTOIN 100 MG CAPSR PO (08:25)
[2024-05-30] MEDS: SENNA TABLET 1 TAB PO (08:25)
[2024-05-30] MEDS: ASPIRIN EC 81 MG TABEC PO (08:26)
[2024-05-30] MEDS: ASCORBIC ACID 250 MG TABLET 500 MG PO (08:26)
[2024-05-30] MEDS: NATEGLINIDE 120 MG TABLET PO ×2 (08:26→11:44)
--- NOTE | 2024-05-30 10:23 | PC.SS ---
Addendum entered by MERYL Fulton 05/30/24 12:28: ETA is 1300. 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 Patient and informed. Bed side nurse is aware. Addendum entered by MERYL Fulton 05/30/24 10:39: Patient to d/c to [facility]. Pending if [facility] has transportation available for today. Patient's , Reba [phone] is aware. Original Note: SS follow up: PASRR level 2 is closed.
--- NOTE | 2024-05-30 10:31 | ESDS_ITS ---
<Statement entered by Imelda Brooks MD - 05/30/24 14:50> I discussed with and supervised the collector of internal revenue physician who took care of this patient. I personally saw and examined the patient and discussed the assessment and plan with the entire medicine team, including my attending Dr. Lloyd, I agree with the assessment and plan as documented below Imelda Brooks MD PGY-3 Disclaimer: Despite multiple revisions, due to the dictation software being used, the document bellow may not be free of grammatical errors including phonetic/typographic errors. However, this does not deter from our commitment to providing health care in the patient's best interest in mind. <Statement entered by Carla Reyes MD - 05/30/24 14:25> I discussed with and supervised the collector of internal revenue physician who took care of this patient. I personally saw and examined the patient and discussed the assessment and plan with the entire medicine team, including my attending , I agree with most of the assessment and plan as documented below Carla Reyes M.D. PGY-2 Planned Discharge Date 05/30/24 DS: Providers Provider Date of admission: 05/24/24 18:36 Primary care physician: Physician No Primary/Family Admitting Provider: Raul Lloyd MD Attending Provider on Admission: Raul Lloyd MD Consults: 05/24/24 17:12 Consult to Cardiology Stat Comment: Clearance for surgery Consulting Provider: Manjit Taylor 05/24/24 17:56 Consult to Orthopedic Stat Comment: Femoral neck fracture Consulting Provider: Will Mack 05/24/24 21:07 Referral Physical Therapy Routine Comment: Physician Instructions: 05/24/24 22:51 Referral Physical Therapy Routine Comment: Physician Instructions: Referral Respiratory Therapy Routine Comment: Health Equity Referral - Knowledge Deficit Routine Comment: Positive screening for knowledge deficit needs. 05/25/24 15:17 Referral Physical Therapy Routine Comment: Gait Training Physician Instructions: Instructions: Both legs full weight bear. Left hip precaution 05/30/24 04:18 Referral Wound Care Routine Comment: New redness to bottom, possibly stage 1 pressure. Attending Provider on DC: Raul Lloyd MD Discharging Provider: Fareed Sandoval MD Anticipated date of discharge: 05/30/24 DS: Diagnosis Problem List Completed Was Problem List Reviewed/Reconciled?: Yes Hospital Course Hospital Course Hospital course: 79-year-old male with past medical history significant for Nonischemic cardiomyopathy, chronic systolic heart failure with preserved ejection fraction status postcardiac transplantation in July 2013, coronary artery disease status post stents, hypertension, hyperlipidemia, type 2 diabetes who presented to the ED with chief complaint of left hip pain status post ground-level fall and [facility] for further management of acute left hip fracture. During hospital stay cardiology was consulted given the patient's extensive cardiac history for clearance for surgery. Orthopedic surgery was consulted and patient had left hip bipolar hemiarthroplasty. Vicky implant. After which postop management included pain control, physical therapy. At this time patient is medically stable for discharge. You will be prescribed [place] 5 for pain as needed, do not use more than 3 tablets a day. Your medication lisinopril dose has been adjusted to 20 mg daily. You have been prescribed Eliquis 2.5 mg twice a day for 2 weeks per cardiology recommendations. Please take aspirin 81 mg daily. Please follow up with your primary care physician within 1 week of discharge. Should any symptoms recur or worsen patient is instructed to return to the ED. Problem list: #Acute displaced left femoral neck fracture #Ground-level fall #Delirium #Hypertension #History of coronary artery disease status post stent placements #History of cardiac transplant July 2013 #History of seizure disorder #Type 2 diabetes not on chronic insulin therapy #Urinary incontinence/overactive bladder #History of Depression/Anxiety Case discussed with my seniors Dr. Reyes PGY-2, Dr. Brooks PGY-[address] Gabino Sandoval MD PGY-1 Time Spent with Patient Time attestation: Total time spent providing and/or coordinating discharge services: Exam Vital Signs Temp Pulse Resp BP Pulse Ox O2 Del Method O2 Flow Rate 98.8 F 102 H 18 130/80 97 Room Air 2 05/30/24 07:53 05/30/24 08:24 05/30/24 07:56 05/30/24 08:24 05/30/24 07:53 05/30/24 07:53 05/29/24 16:00 Narrative Exam Physical Exam GENERAL: NAD, AAOx3 HEENT: Moist mucosa. Eyes open, symmetrical, & clear CARDIO: Heart RRR, no obvious murmurs PULM: No noted coughing/dyspnea CTA B/L, no R/W/R GI: Abdomen soft, nondistended, no pain on palpation. BSx4 SKIN/MSK/EXT: No wounds/rashes/edema/amputations, no pain on palpation. Pedal pulses present B/L NEURO: AAOx3, no focal neuro deficits, able to move all 4 extremities Discharge Plan Plan Patient Disposition: Xfer Skilled Nsg Fac (SNF) Disposition Comment: Stable Care Plan Goals: You will be prescribed [place] 5 for pain as needed, do not use more than 3 tablets a day Your medication lisinopril dose has been adjusted to 20 mg daily You have been prescribed Eliquis 2.5 mg twice a day for 2 weeks per cardiology recommendations Please take aspirin 81 mg daily Please follow up with your primary care physician within 1 week of discharge Should any symptoms recur or worsen patient is instructed to return to the ED. Prescriptions/Referrals Prescriptions/Med Rec: New hydrocodone-acetaminophen 5-300 mg tablet 1 tab PO Q8H MDD 3 PRN (Reason: pain) Qty: 12 0RF lisinopril 20 mg Tablet 20 mg PO QDAY 30 Days Qty: 30 0RF Eliquis 2.5 mg tablet 2.5 mg PO BID 14 Days Qty: 28 0RF aspirin 81 mg capsule 81 mg PO QDAY Qty: 30 0RF Continued tamsulosin [Flomax] 0.4 mg capsule 0.4 mg PO QDAY phenytoin sodium extended [Dilantin Extended] 100 mg Capsule 100 mg PO QDAY mirtazapine [Remeron] 15 mg Tablet 15 mg PO QDAY atorvastatin 40 mg Tablet 40 mg PO QDAY omeprazole 40 mg Capsule,Delayed Release(Dr/Ec) 40 mg PO QDAY ascorbic acid (vitamin C) [Vitamin C] 500 mg Tablet 500 mg PO BID calcium carbonate-vitamin D2 600 mg calcium- 200 unit Tablet 1 tab PO DAILY vitamin E 400 unit Capsule 400 unit PO BID Januvia 50 mg Tablet 50 mg PO QDAY tacrolimus 1 mg Capsule 2 mg PO Q12HR nateglinide 120 mg Tablet 120 mg PO BID sertraline 100 mg Tablet 100 mg PO BID hydralazine 25 mg Tablet 25 mg PO TID oxybutynin chloride 5 mg Tablet 5 mg PO BID everolimus (immunosuppressive) 0.5 mg Tablet 1.5 mg PO BID Ozempic 0.25 mg or 0.5 mg (2 mg/3 mL) pen injector 0.25 mg SUBCUT QWEEK Discontinued clopidogrel [Plavix] 75 mg Tablet 75 mg PO QDAY aspirin 81 mg Tablet,Delayed Release (Dr/Ec) 81 mg PO QDAY lisinopril 5 mg Tablet 5 mg PO QDAY Referrals: No Primary/Family,Physician [Primary Care Provider] - Patient/Caregiver Discharge Instructions Discharge Activity: activity as tolerated Education Materials: Surgery Anesthesia After, Preventing Surgical Site Infections Print Language: [place] Citizen Stand Alone Forms: Carly Award Info., Patient Portal Info Letter Discharge Order Discharge Orders: Discharge (Routine); Ordered 05/30/24 Ordered By: Carla Reyes Quality Discharge Quality Measures VTE prophylaxis MD Attestestation MD Attestation I have examined the patient, reviewed labs and imaging findings, discussed the case with the resident(s), and reviewed entered orders. I agree with the plan of care as outlined in this note. Time Spent: [address] Gabino MD
[2024-05-30] MEDS: INSULIN LISPRO (AdmeLOG) 1 UNIT/0.01 ML UNIT SC (11:44)
== END 2024-05-30 14:49 | disposition skilled nursing facility (03) | DRG 522 ==
LOC: SERX 18:10 → SERHOLD 19:06 → S3SX 05-25 05:50 → S3NX 05-26 18:57
PROVIDERS: Nurse Practitioner Family; Orthopaedic Surgery; Student in an Organized Health Care Education/Training Program; Admitting Provider Student in an Organized Health Care Education/Training Program; Emergency Provider Emergency Medicine; Visit Provider Student in an Organized Health Care Education/Training Program
PROC: 0SRR0JZ Replacement of Right Hip Joint, Femoral Surface with Synthetic Substitute, Open Approach (ICD-10-PCS; CPT 27125; principal; 2024-05-25 16:00)
DX: S72.002A Fracture of unspecified part of neck of left femur, initial encounter for closed fracture (principal); I25.811 Atherosclerosis of native coronary artery of transplanted heart without angina pectoris; I42.8 Other cardiomyopathies; Z94.1 Heart transplant status; I50.42 Chronic combined systolic (congestive) and diastolic (congestive) heart failure; R51.9 Headache, unspecified; I11.0 Hypertensive heart disease with heart failure; G40.909 Epilepsy, unspecified, not intractable, without status epilepticus; N32.81 Overactive bladder; R32 Unspecified urinary incontinence; E11.65 Type 2 diabetes mellitus with hyperglycemia; F32.A Depression, unspecified; F41.9 Anxiety disorder, unspecified; E78.00 Pure hypercholesterolemia, unspecified; R45.1 Restlessness and agitation; W01.0XXA Fall on same level from slipping, tripping and stumbling without subsequent striking against object, initial encounter; Z95.5 Presence of coronary angioplasty implant and graft; Z79.82 Long term (current) use of aspirin; Z78.1 Physical restraint status; Z79.899 Other long term (current) drug therapy; Z79.01 Long term (current) use of anticoagulants; Z87.891 Personal history of nicotine dependence; Z79.4 Long term (current) use of insulin; Z79.02 Long term (current) use of antithrombotics/antiplatelets
CPT/HCPCS: 36415; 70450; 71045; 73501; 73502; 73552; 80053; 81001; 83735; 83880; 84100; 84484; 85025; 85610; 85730; 86850; 86900; 86901; 86923; 87081; 93005; 93225; 97161; 99285; A4217; A4649; C1776; J0131; J0689; J0690; J1100; J1200; J1580; J1815; J2250; J2270; J2405; J2704; J2795; J3010; J3490; J7040; J7120; J7507; L1832; A9270; J1805; J1920

== ENCOUNTER → 2024-07-06 | Outpatient (CLI) | payer MEDICARE, BC, SELFPAY ==
[2024-07-06 08:54] LABS: Basophils % (Auto) 0 % (0-2.5); Eosinophils # (Auto) 0.1 Thou/mm3 (0.0-0.5); Eosinophils % (Auto) 2 % (0-10); Hematocrit 37.4 % (41.0-53.0); Hemoglobin 12.1 g/dL (13.5-16.0); Immature Granulocytes % (Auto) 0 % (0-0); Immature Granulocytes Auto 0.03 Thou/mm3 (0.00-0.00); Lymphocytes # (Auto) 1.2 Thou/mm3 (1.0-4.8); Lymphocytes % (Auto) 17 % (10-50); Mean Corpuscular HGB Conc 32.4 g/dl (31.0-37.0); Mean Corpuscular Hemoglobin 29.1 pg (25.0-35.0); Mean Corpuscular Volume 90 fL (80-100); Monocytes # (Auto) 0.7 Thou/mm3 (0.0-0.8); Monocytes % (Auto) 10 % (0-12); Neutrophils # (Auto) 4.8 Thou/mm3 (1.8-7.7); Neutrophils % (Auto) 71 % (37-80); Nucleated Red Blood Cell % 0 /100 WBC (0); Platelet Count 323 Thou/mm3 (140-440); RDW Standard Deviation 45.1 fL (35.1-43.9); Red Blood Count 4.16 Miln/mm3 (4.50-5.90); White Blood Count 6.8 Thou/mm3 (3.8-10.6)
[2024-07-06 08:58] LABS: Glucose Estimated Average 137 mg/dL (80-131); Hemoglobin A1C 6.4 % Hgb (4.8-6.0)
[2024-07-06 09:01] LABS: Prostate Specific Antigen 1.31 ng/mL (0-4.00)
[2024-07-06 09:19] LABS: Alanine Aminotransferase 26 U/L (10-49); Albumin/Globulin Ratio 1.5 (1.2-2.2); Alkaline Phosphatase 169 U/L (46-116); Anion Gap 9 (7-16); Aspartate Amino Transferase 27 U/L (0-34); BUN/Creatinine Ratio 37 Ratio (12-20); Bilirubin,Total 0.3 mg/dL (0.3-1.2); Blood Urea Nitrogen 48 mg/dL (9-23); Calcium 9.4 mg/dL (8.3-10.6); Calcium (Corrected) 9.4 mg/dL (8.5-10.1); Carbon Dioxide 27.2 mMol/L (20.0-31.0); Chloride 110 mMol/L (98-107); Creatinine (Component) 1.3 mg/dL (0.6-1.3); Globulin 2.7 gm/dL (2.3-3.5); Glucose 212 mg/dL (74-106); Osmolality,Calculated 309 (275-295); Potassium 4.9 mMol/L (3.4-5.1); Sodium 146 mMol/L (136-145); Total Protein 6.7 gm/dL (5.7-8.2); eGFR 56 See Note
== END | disposition home or self-care (01) ==
LOC: COPL 07:26
PROVIDERS: PCP Family Medicine; Referring Provider Family Medicine; Visit Provider Family Medicine
DX: I10 Essential (primary) hypertension (principal); E11.9 Type 2 diabetes mellitus without complications; K21.9 Gastro-esophageal reflux disease without esophagitis; N39.490 Overflow incontinence
CPT/HCPCS: 36415; 80053; 83036; 84153; 85025

== ENCOUNTER → 2024-07-09 | Outpatient (CLI) | payer MEDICARE, BC, SELFPAY ==
--- NOTE | 2024-07-09 09:46 | XR_ITS ---
Examination:Left hip AP, lateral, AP pelvis 3 views Technique: Hip AP lateral, AP pelvis, 3 views Exam date and time:July 09, 2024 1028 hours INDICATIONS: History left hip replacement, acute femoral neck fracture May 24, 2024 FINDINGS: Left hip bipolar hemiarthroplasty. Satisfactory alignment Moderate narrowing right hip joint No acute fracture IMPRESSION: Left hip bipolar hemiarthroplasty with satisfactory alignment.
== END | disposition home or self-care (01) ==
LOC: CDIM 09:41
PROVIDERS: PCP Family Medicine; Referring Provider Orthopaedic Surgery; Visit Provider Orthopaedic Surgery
DX: Z96.642 Presence of left artificial hip joint (principal)
CPT/HCPCS: 73502

== ENCOUNTER 2024-09-23 15:29 | Emergency (ER) | payer MEDICARE, BC, SELFPAY ==
[2024-09-23 15:30] VITALS: BMI 18.4
[2024-09-23 15:37] VITALS: BP 148/80; PULSE 93; RESP 20; TEMP 36.6; O2SAT 95
--- NOTE | 2024-09-23 15:51 | XR_ITS ---
Examination:Left hip AP, lateral, AP pelvis 3 views Technique: Hip AP lateral, AP pelvis, 3 views Exam date and time:September 23, 2024, 1611 hrs. Indications: Injury to left hip today, left hip pain Findings: Left hip hemiarthroplasty. Satisfactory alignment No loosening of the prosthetic components Right hip bones of the pelvis intact Impression: Left hip hemiarthroplasty with satisfactory alignment.
--- NOTE | 2024-09-23 15:57 | PD.EDRME ---
Rapid Medical Screening Exam [facility] Arrival date/time: 09/23/24 15:29 79-year-old male with a history of hyperlipidemia, type 2 diabetes presents to the emergency room with a chief complaint of left hip tenderness and pain after ground-level fall that occurred 2 hours ago. I have greeted and performed a focused initial assessment of this patient. A comprehensive ED assessment and evaluation of the patient, analysis of all test results, and completion of the medical decision making process will be conducted by additional ED providers. Chief Complaint: Fall Time Seen by Provider: 09/23/24 15:46 Vital signs: Vital Signs Temperature 97.9 F 09/23/24 15:37 Pulse Rate 93 09/23/24 15:37 Respiratory Rate 20 09/23/24 15:37 Blood Pressure 148/80 H 09/23/24 15:37 Pulse Oximetry (%) 95 09/23/24 15:37 Oxygen Delivery Method Room Air 09/23/24 15:37 Vital signs reviewed by provider: Yes
--- NOTE | 2024-10-01 15:23 | EDNOTE_ITS ---
<Statement entered by Miroslava Paulino MD - 10/01/24 17:11> As co-signing physician, I was present and available for consult prn. I concur with the plan and care as documented by the midlevel provider. ED Fall Injury RME/HPI General Chief Complaint: Fall Stated Complaint: LEFT HIP PAIN Time Seen by Provider: 09/23/24 15:46 Source: patient Arrival date/time: 09/23/24 15:29 79-year-old male with a history of hyperlipidemia, type 2 diabetes presents to the emergency room with a chief complaint of left hip tenderness and pain after ground-level fall that occurred 2 hours ago. Mode of arrival: ambulatory Limitations: no limitations RME / HPI RME / HPI Narrative: 09/23/24 15:29 79-year-old male with a history of hyperlipidemia, type 2 diabetes presents to the emergency room with a chief complaint of left hip tenderness and pain after ground-level fall that occurred 2 hours ago. I have greeted and performed a focused initial assessment of this patient. A comprehensive ED assessment and evaluation of the patient, analysis of all test results, and completion of the medical decision making process will be conducted by additional ED providers. Related Data Home Medications ?Medication ?Instructions ?Recorded ?Confirmed ascorbic acid (vitamin C) 500 mg 500 mg PO BID 1 05/24/24 tablet (Vitamin C) atorvastatin 40 mg tablet 40 mg PO QDAY 07/25/2005/24 calcium carb-ergocalciferol (vit 1 tab PO DAILY 05/24/24 D2) 600 mg calcium-200 unit tablet everolimus (immunosuppressive) 0.5 1.5 mg PO BID 07/2505/24/24 mg tablet hydralazine 25 mg tablet 25 mg PO TID 07/25/20 nateglinide 120 mg tablet 120 mg PO BID 07/25/2005/24 omeprazole 40 mg capsule,delayed 40 mg PO QDAY 1 05/24/24 release oxybutynin chloride 5 mg tablet 5 mg PO BID 07/25/20 0 05/24/24 sertraline 100 mg tablet 100 mg PO BID 07/25/2005/24 sitagliptin phosphate 50 mg tablet 50 mg PO QDAY 07/2505/24/24 (Januvia) tacrolimus 1 mg capsule, 2 mg PO Q12HR 07/25/2005/24 immediate-release vitamin E 268 mg (400 unit) capsule 400 unit PO BID 05/24/24 tamsulosin 0.4 mg capsule (Flomax) 0.4 mg PO QDAY 01/0505/24/24 mirtazapine 15 mg tablet (Remeron) 15 mg PO QDAY 07/0605/24/24 phenytoin sodium extended 100 mg 100 mg PO QDAY 05/24/24 capsule (Dilantin Extended) semaglutide 0.25 mg or 0.5 mg (2 0.25 mg subcut QWEEK 05/24/24 05/26/24 mg/3 mL) subcutaneous pen injector (Ozempic) Previous Rx's ?Medication ?Instructions ?Recorded aspirin 81 mg capsule 81 mg PO QDAY #30 caps 05/28 hydrocodone 5 mg-acetaminophen 300 1 tab PO Q8H PRN pa in #12 tabs 05/28/24 mg tablet Allergies Allergy/AdvReac Type Severity Reaction Status Date / Time No Known Allergies Allergy Verified 09/23/24 15:32 Review of Systems Review of Systems Systems Reviewed: All systems reviewed, normal except as documented Constitutional Constitutional: Reports system reviewed and no additional complaints, except as documented, Denies fatigue, Denies fever(s), Denies headache(s) and Denies weakness Eyes Eyes: Reports system reviewed and no additional complaints, except as documented, Denies blurry vision and Denies change in vision ENT Ears, Nose, Mouth, and Throat: Reports system reviewed and no additional complaints, except as documented, Denies otalgia, Denies headache(s), Denies nasal congestion, Denies throat swelling and Denies vertigo Cardiovascular Cardiovascular: Reports system reviewed and no additional complaints, except as documented, Denies chest pain, Denies dyspnea and Denies dyspnea on exertion Respiratory Respiratory: Reports system reviewed and no additional complaints, except as documented, Denies chest congestion, Denies cough, Denies dyspnea, Denies dyspnea on exertion and Denies wheezing Gastrointestinal Gastrointestinal: Reports system reviewed and no additional complaints, except as documented, Denies abdominal pain, Denies cramping, Denies nausea and Denies vomiting Genitourinary Genitourinary: Reports system reviewed and no additional complaints, except as documented, Denies dysuria and Denies hematuria Musculoskeletal Musculoskeletal: Reports system reviewed and no additional complaints, except as documented, Reports abnormal gait, Reports arthralgias, Denies back pain, Reports joint swelling and Reports limited range of motion Integumentary/Breasts Skin/Breast: Reports system reviewed and no additional complaints, except as documented and Denies wounds Neurologic Neurologic: Reports system reviewed and no additional complaints, except as documented, Reports abnormal gait, Denies confusion, Denies headache(s), Denies lack of coordination, Denies vertigo and Denies weakness Psychiatric Psychiatric: Reports system reviewed and no additional complaints, except as documented, Denies anxiety, Denies confusion, Denies depression, Denies paranoia, Denies suicidal ideation and Denies tactile hallucinations Endocrine Endocrine: Reports system reviewed and no additional complaints, except as documented and Denies fatigue Hematologic/Lymphatic Hematologic/Lymphatic: Reports system reviewed and no additional complaints, except as documented and Denies lymphadenopathy Allergic/Immunologic Allergic/Immunologic: Reports system reviewed and no additional complaints, except as documented, Denies throat swelling, Denies urticaria and Denies wheezing ED Exam General Limitations: Present no limitations General appearance: Present alert and in no apparent distress Head Head exam: Present atraumatic Eye Eye exam: Present normal appearance, PERRL and EOMI ENT ENT exam: Present normal exam, normal oropharynx and mucous membranes moist Neck Neck exam: Present normal inspection, full ROM and trachea midline Chest Chest inspection: Present normal inspection and symmetric chest wall rise Respiratory Respiratory exam: Present normal lung sounds bilaterally Cardiovascular Cardiovascular exam: Present regular rate, normal rhythm and normal heart sounds Abdominal Exam Abdominal exam: Present soft and normal bowel sounds Extremities Exam Extremities exam: Present normal inspection and full ROM Expanded Lower Extremity Exam Hip/Pelvis exam: Present tenderness and swelling; Absent full ROM, deformity, crepitus, dislocation or erythema Back Exam Back exam: Present normal inspection and full ROM Neurological Exam Neurological exam: Present alert, oriented X3 and CN II-XII intact Psychiatric Psychiatric exam: Present normal affect and normal mood Skin Skin exam: Present warm, dry, intact and normal color Course Quality Measures none Orders Category Date Time Status XR hip LT w pelvis 2-3V Stat Exams 09/23/24 15:51 Completed Vital Signs Vital signs: Vital Signs Temperature 97.9 F 09/23/24 15:37 Pulse Rate 93 09/23/24 15:37 Respiratory Rate 20 09/23/24 15:37 Blood Pressure 148/80 H 09/23/24 15:37 Pulse Oximetry (%) 95 09/23/24 15:37 Oxygen Delivery Method Room Air 09/23/24 15:37 Fall MDM Narrative MDM Narrative:: 79-year-old male with a history of hyperlipidemia, type 2 diabetes presents to the emergency room with a chief complaint of left hip tenderness and pain after ground-level fall that occurred 2 hours ago. Patient is hemodynamically stable and in no apparent distress Physical examination shows tenderness and pain to the patient's left hip. The patient had a ground-level fall that occurred 2 hours ago. Patient states he is having pain tenderness swelling and limited range of motion to the hip. Patient states hes had a hip replacement surgery to the same hip X-ray of the hip was completed and shows a left hip hemiarthroplasty in satisfactory alignment. There are no acute fractures or dislocations Patient was discharged and educated to follow-up with primary care provider in the next 24 to 48 hours and return to the emergency room for any evidence of worsening signs or symptoms Patient data External records reviewed:: [facility] previous records Clinical information provided by:: patient Social determinants that could affect healthcare access:: none Patient has the following chronic illnesses:: No chronic illness How is presenting disease/condition affected by chronic disease/condition?: no chronic disease Evaluation data The following diagnostics were reviewed and interpreted by me:: lab results and radiology exam(s) Lab and/or radiology exams considered but not ordered:: Labs and radiology exams considered and ordered Interpretation Summary: Left hip [id number]: Left hip hemiarthroplasty. Satisfactory alignment No loosening of the prosthetic components Right hip bones of the pelvis intact Impression: Left hip hemiarthroplasty with satisfactory alignment. Medications / Prescriptions Medications or Prescriptions considered but not ordered:: No medication given Medication administrations:: No medication given Consultations Consultation(s) initiated? (list below): No Diagnosis Fall Differential Diagnosis: other (Left hip contusion/left hip fracture/pelvic fracture) Most likely diagnosis given after review of the tests above:: Left hip contusion Admission Indicated Admission indicated?: not indicated Admission Request Was there a request for admission?: No Disposition Plan Disposition Plan: Discharge Discharge Attestation Discharge Attestation: The patient and all family members were given an opportunity to ask questions and understood the discharge instructions. Discharge instructions specifically effects, indications for sooner follow up or return to the emergency department, and the expected course of current diagnosis. Patient condition: Stable Discharge Plan Plan Patient Disposition: HOME (Self Care) Discharge Disposition comment: Stable Prescriptions/Referrals Prescriptions/Med Rec: No Action tamsulosin [Flomax] 0.4 mg capsule 0.4 mg PO QDAY phenytoin sodium extended [Dilantin Extended] 100 mg Capsule 100 mg PO QDAY mirtazapine [Remeron] 15 mg Tablet 15 mg PO QDAY atorvastatin 40 mg Tablet 40 mg PO QDAY omeprazole 40 mg Capsule,Delayed Release(Dr/Ec) 40 mg PO QDAY ascorbic acid (vitamin C) [Vitamin C] 500 mg Tablet 500 mg PO BID calcium carbonate-vitamin D2 600 mg calcium- 200 unit Tablet 1 tab PO DAILY vitamin E 400 unit Capsule 400 unit PO BID Januvia 50 mg Tablet 50 mg PO QDAY tacrolimus 1 mg Capsule 2 mg PO Q12HR nateglinide 120 mg Tablet 120 mg PO BID sertraline 100 mg Tablet 100 mg PO BID hydralazine 25 mg Tablet 25 mg PO TID oxybutynin chloride 5 mg Tablet 5 mg PO BID everolimus (immunosuppressive) 0.5 mg Tablet 1.5 mg PO BID Ozempic 0.25 mg or 0.5 mg (2 mg/3 mL) pen injector 0.25 mg SUBCUT QWEEK hydrocodone-acetaminophen 5-300 mg tablet 1 tab PO Q8H MDD 3 PRN (Reason: pain) Qty: 12 0RF aspirin 81 mg capsule 81 mg PO QDAY Qty: 30 0RF Referrals: Marine Sarah MD [Primary Care Provider] - In 1 week Problem List Clinical Impression: Contusion of hip, left Patient/Caregiver Discharge Instructions Education Materials: ED Hip Contusion Additional Instructions: Please follow-up with your primary care provider in the next 24 to 48 hours X-rays were completed and were negative for any acute findings For any evidence of worsening signs or symptoms return to the emergency room immediately Print Language: [place] Stand Alone Forms: Carly Award Info., Patient Portal Info Letter PA/SUPERVISOR SAFETY DEPOSIT Supervising Physician PA/SUPERVISOR SAFETY DEPOSIT Supervising Physician: Dr. Topete
== END 2024-09-23 17:35 | disposition home or self-care (01) ==
PROVIDERS: Emergency Provider Emergency Medicine; PCP Family Medicine
DX: S70.02XA Contusion of left hip, initial encounter (principal); W18.30XA Fall on same level, unspecified, initial encounter
CPT/HCPCS: 73502; 99283

== ENCOUNTER 2024-10-19 06:31 | Day surgery (SDC) | payer MEDICARE, BC, SELFPAY ==
--- NOTE | 2024-10-18 07:00 | EKG_ITS ---
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 : 1945 Requested By: Manjit Willis Order Number: [id number] Reading MD: Manjit Willis Measurements Intervals [place] Rate: 83 P: 85 MT: 190 QRS: -76 QRSD: 137 T: 62 QT: 396 QTc: 467 Interpretive Statements SINUS RHYTHM MARKED LEFT AXIS DEVIATION [QRS AXIS < -30] INTRAVENTRICULAR CONDUCTION DELAY [130+ ms QRS DURATION] PROBABLE ANTEROSEPTAL MYOCARDIAL INFARCTION , OF INDETERMINATE AGE [35 ms Q WAVE IN V1-V4] Compared to ECG 05/24/2024 20:35:38 Left-axis deviation now present Intraventricular conduction delay now present Right bundle-branch block no longer present Left anterior fascicular block no longer present T-wave abnormality no longer present Possible ischemia no longer present Myocardial infarct finding still present /store/S0/[id number]/ecg/[id number].pdf
[2024-10-18 13:18] LABS: Basophils # (Auto) 0.0 Thou/mm3 (0.0-0.2); Basophils % (Auto) 0 % (0-2.5); Eosinophils # (Auto) 0.1 Thou/mm3 (0.0-0.5); Eosinophils % (Auto) 2 % (0-10); Hematocrit 37.4 % (41.0-53.0); Hemoglobin 11.9 g/dL (13.5-16.0); Immature Granulocytes Auto 0.02 Thou/mm3 (0.00-0.00); Lymphocytes # (Auto) 1.5 Thou/mm3 (1.0-4.8); Lymphocytes % (Auto) 30 % (10-50); Mean Corpuscular HGB Conc 31.8 g/dl (31.0-37.0); Mean Corpuscular Hemoglobin 28.8 pg (25.0-35.0); Mean Corpuscular Volume 91 fL (80-100); Monocytes # (Auto) 0.5 Thou/mm3 (0.0-0.8); Monocytes % (Auto) 10 % (0-12); Neutrophils # (Auto) 3.0 Thou/mm3 (1.8-7.7); Neutrophils % (Auto) 58 % (37-80); Nucleated Red Blood Cell # 0.00 Thou/mm3 (0.00-0.00); Nucleated Red Blood Cell % 0 /100 WBC (0); Platelet Count 251 Thou/mm3 (140-440); RDW Standard Deviation 45.3 fL (35.1-43.9); Red Blood Count 4.13 Miln/mm3 (4.50-5.90); White Blood Count 5.1 Thou/mm3 (3.8-10.6)
[2024-10-18 13:26] LABS: INR 1.1 (0.9-1.3); Partial Thromboplastin Time 27.2 Seconds (22.0-36.0); Prothrombin Time 12.3 Seconds (9.0-12.2)
[2024-10-18 13:37] LABS: Anion Gap 10 (7-16); BUN/Creatinine Ratio 33 Ratio (12-20); Blood Urea Nitrogen 40 mg/dL (9-23); Calcium 9.6 mg/dL (8.3-10.6); Carbon Dioxide 25.0 mMol/L (20.0-31.0); Chloride 111 mMol/L (98-107); Creatinine (Component) 1.2 mg/dL (0.6-1.3); Glucose 168 mg/dL (74-106); Osmolality,Calculated 304 (275-295); Potassium 4.2 mMol/L (3.4-5.1); Sodium 146 mMol/L (136-145); eGFR > 60 See Note
[2024-10-19] VITALS (17 sets, daily range): BP systolic 121–155; BP diastolic 70–90; PULSE 78–91; RESP 15–18; TEMP 36.2–36.3; O2SAT 97–99
[2024-10-19] MEDS: MORPHINE SULF INJ 10 MG/ML VIAL 2 MG IVP (10:25)
--- NOTE | 2024-10-19 10:30 | ESOP_ITS ---
RE: CURTIS KAMINSKI : 1945 DATE OF OPERATION: 10/19/2024 PROCEDURES PERFORMED: 1. Diagnostic left heart cardiac catheterization, selective coronary angiogram, and left ventricular angiogram, CPT 48109. 2. Conscious sedation for 30-minute duration. 3. PCI and PTCA and stent placement of the distal left anterior descending artery with placement of drug eluting stent 2.5 x 15 mm [place] Medtronic stent, preprocedure stenosis 80%, postprocedure stenosis 0%. CHRISTOPHER flow pre and post is 3. 4. Ultrasound-guided access, right femoral artery. Ileofemoral angiogram followed by manual compression. 5. PTCA angioplasty of the mid left anterior descending artery for discrete focal lesion, preprocedure stenosis 80%, postprocedure 0%. CHRISTOPHER flow preprocedure 3 and postprocedure is 3. INDICATION: Mr. 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 A recent angiogram at [facility] a month ago showed evidence of severe stenosis of the right coronary artery and he underwent PCI and stent in the proximal RCA and at the same time was found to have 80% stenosis of the distal left anterior descending artery. It was recommended a staged approach of PTCA of the left anterior descending artery at that time and the patient will be recommended to have a coronary angiogram and cardiac evaluation and assess the patency of the RCA and proceed with PCI and stent placement in the distal left anterior descending artery. PROCEDURE DETAILS: The patient was brought to the cardiac catheterization laboratory. He was given 2 mg of Versed and 75 mcg of fentanyl for conscious sedation. Right femoral approach was taken. The right femoral artery was cannulated with micropuncture technique and a 6-[place] sheath was introduced. Selective right and left coronary angiogram was performed. Right angiogram was performed by an FR4 diagnostic catheter. Left coronary angiogram was performed by a 6-[place] EBU 4.0 guiding catheter and left ventricular angiogram. Left heart catheterization was performed by a 5-[place]ib[place] pigtail catheter. Subsequently, PCI was undertaken. Cardiac catheterization showed following findings. HEMODYNAMICS: Left ventricular pressure is 160/2, EDP 10, aortic pressure 163/70. No gradient across the aortic valve. Left ventricular angiogram showed evidence of a normal ejection fraction of 70% and normal wall motion. Coronary angiogram showed following findings. The right coronary artery is large and dominant showed evidence of stent in the proximal segment, which is widely patent. There is evidence of moderate 50% stenosis of the mid RCA. Left coronary artery system: Left main coronary artery is normal. The left anterior descending artery showed evidence of a 40% stenosis of the proximal left anterior descending artery. Subsequently, there is evidence of a discrete 80% stenosis close to the origin of the large diagonal branch in the mid segment. Subsequently, there is diffuse disease about 30% to 40% narrowing with a focal segmental 80% stenosis seen just before the previously stented segment. The stent itself is widely patent, but there is evidence of an 80% focal restenosis in the middle part of the stent. The circumflex is nondominant and showed no significant stenosis. The obtuse marginal branch and PL branches are normal. The intervention details are as follows: A 6-[place]ib[place] EBU 4.0 guiding catheter was used to cannulate the left main coronary artery. A 0.014 [place] guidewire was used to cross the lesion successfully. Angioplasty of the stented segment was performed by a 2.5 mm balloon and _ subsequently was used to dilate aggressively. Subsequently, the mid distal LAD proximal to the stent was also dilated using the same balloon. After predilating, a 2.5 x 15 mm [place] Medtronic drug-eluting stent was deployed proximal to the stent with a slight overlap with an excellent result. Two inflations were performed. A 2.5 mm x 12 mm balloon was used to dilate the mid left anterior descending artery up to 8 atmospheres of pressure with an excellent result. Angioplasty itself gave a good result and it was decided not to stent this segment to avoid excessive stenting and possible restenosis. Final angiogram showed a widely patent left anterior descending artery CHRISTOPHER-3 flow entire vessel with no compromise. RECOMMENDATION: The patient will have followup with an angiogram in 6-12 months again for evaluation of restenosis. There are multiple segments of disease, mid RCA, proximal LAD and a segment in the mid LAD with some diffuse disease, but not more than 50% stenosis and will manage medically for now the rest of the vessels until there is significant hemodynamically obstructive stenosis. There is calcificationof femoral artery. Hence, I did not do any closure devices. Manual compression will be applied. The patient will be continued on dual antiplatelet drug therapy indefinitely. DT: 08:56:28 TT: 10:21:00 Ref: [id number] - TID: [id number] MTDD
--- NOTE | 2024-10-19 10:36 | PC.NURSE ---
ACT [address] Taylor to ask if it was okay to remove sheath at this time, DR Taylor said that it is okay to remove sheath Sheath from right femoral was pulled out at 10:14 and pressure was held until 10:31 right dorsais pedal has a normal pulse, right groin is negative for swelling, hematoma or bleeding i will continue to monitor Blood pressure and dressing site for bleeding or elevated blood pressure
[2024-10-19 10:38] LABS: ACT (CATH LAB ONLY) 297.0 Seconds (89-169)
[2024-10-19 12:33] LABS: ACT (CATH LAB ONLY) 184.0 Seconds (89-169)
== END 2024-10-19 15:00 | disposition home or self-care (01) ==
PROVIDERS: PCP Family Medicine; Referring Provider Internal Medicine Cardiovascular Disease; Visit Provider Internal Medicine Cardiovascular Disease
PROC: (CPT 93458; principal; 2024-10-19 07:30)
DX: I25.118 Atherosclerotic heart disease of native coronary artery with other forms of angina pectoris (principal); E78.00 Pure hypercholesterolemia, unspecified; E11.9 Type 2 diabetes mellitus without complications; I74.3 Embolism and thrombosis of arteries of the lower extremities; Z95.5 Presence of coronary angioplasty implant and graft; Z01.810 Encounter for preprocedural cardiovascular examination; I25.2 Old myocardial infarction
CPT/HCPCS: 93458; C9600; 36415; 80048; 85025; 85347; 85610; 85730; 93005; 99152; 99153; A4649; C1725; C1769; C1874; C1887; C1894; J0168; J0360; J0461; J1643; J2250; J2270; J2310; J2371; J3010; J3490; Q9967

== ENCOUNTER → 2024-12-31 | Outpatient (CLI) | payer MEDICARE, BC, SELFPAY ==
[2024-12-31 10:42] LABS: Glucose Estimated Average 151 mg/dL (80-131); Hemoglobin A1C 6.9 % Hgb (4.8-6.0)
== END | disposition home or self-care (01) ==
LOC: COPL 08:15
PROVIDERS: PCP Family Medicine; Referring Provider Family Medicine; Visit Provider Family Medicine
DX: I10 Essential (primary) hypertension (principal); E11.9 Type 2 diabetes mellitus without complications; M25.552 Pain in left hip
CPT/HCPCS: 36415; 83036

== ENCOUNTER → 2025-02-06 | Outpatient (CLI) | payer MEDICARE, BC, SELFPAY ==
--- NOTE | 2025-02-06 09:18 | XR_ITS ---
Examination: Left hip AP, lateral, AP pelvis 3 views Technique: Hip AP lateral, AP pelvis, 3 views Exam date and time: February 06, 2025, 0930 hours INDICATIONS: Patient fell last night with injury to the left hip, left hip pain. FINDINGS: Severe osteopenia Left hip hemiarthroplasty. Satisfactory alignment No prosthetic hip dislocation Right hip intact with moderate narrowing right hip joint Bones of the pelvis intact IMPRESSION: No acute fracture. Left hip hemiarthroplasty with satisfactory alignment
[2025-02-06 10:42] LABS: Anion Gap 9 (7-16); BUN/Creatinine Ratio 28 Ratio (12-20); Blood Urea Nitrogen 33 mg/dL (9-23); Calcium 9.3 mg/dL (8.3-10.6); Carbon Dioxide 26.9 mMol/L (20.0-31.0); Chloride 110 mMol/L (98-107); Creatinine (Component) 1.2 mg/dL (0.6-1.3); Glucose 173 mg/dL (74-106); Osmolality,Calculated 301 (275-295); Potassium 4.3 mMol/L (3.4-5.1); Sodium 146 mMol/L (136-145); eGFR > 60 See Note
== END | disposition home or self-care (01) ==
PROVIDERS: Referring Provider Orthopaedic Surgery; Visit Provider Radiology Diagnostic Radiology
DX: M25.562 Pain in left knee (principal); Z96.642 Presence of left artificial hip joint; Z94.1 Heart transplant status; Z48.298 Encounter for aftercare following other organ transplant; Z79.899 Other long term (current) drug therapy
CPT/HCPCS: 36415; 73502; 80048